=== PATIENT | female | born 1935 | race Caucasian/White ===

== ENCOUNTER 2017-08-22 09:11 | Outpatient (CLI) | payer MEDICARE ==
--- NOTE | 2017-08-22 09:39 | RAD ---
PA AND LATERAL CHEST: HISTORY: Dyspnea. COMPARISON: Comparison is made to prior films of 12/15/15 and 06/09/15. FINDINGS: There are changes of COPD with hyperexpansion. There is abnormal parenchymal opacity involving the l ingula obscuring portions of the left heart order. On the lateral view, there is evidence of cystic change within this portion of the lingula indicating some chronic parenchymal abnormality. These rogelio gular changes appear stable from 12/15/15 indicating chronic change. There is nodularity in the left apex which appears stable. There is no evidence of acute infiltrate. The vascular markings are normal. Heart size normal. Mild aortic calcification. Thoracic vertebr ae maintain height. Osteopenia noted. IMPRESSION: There are changes of chronic obstructive pulmonary disease and chronic lung changes, especially in th e left lung which appears stable as described above. POS: [facility]
== END 2017-08-22 09:12 | disposition home or self-care (01) ==
LOC: RAD 09:11
PROVIDERS: ATTEND Internal Medicine Critical Care Medicine
DX: R06.00 Dyspnea, unspecified (principal); J44.9 Chronic obstructive pulmonary disease, unspecified
CPT/HCPCS: 71020

== ENCOUNTER 2017-09-11 14:10 | Inpatient (IN) | payer MEDICARE, BC ==
[~2017-09-11 14:10] MED LIST: ISOVUE-370 76%-LOCM 1 ML ONE
[2017-09-11 14:43] LABS: #Eosinphils 0.1 thou/uL (0.0-0.7); #Lymphocytes 1.3 thou/uL (1.20-3.40); #Monocytes 0.5 thou/uL (0.11-0.59); #Neutrophils 8.6 thou/uL (1.40-6.50); %Basophils 0.4 % (0.0-1.0); %Eosinophils 1.3 % (0.0-10.0); %Lymphocytes 12.5 % (21.0-51.0); %Monocytes 4.7 % (0.0-10.0); %Neutrophils 81.1 % (42.0-75.0); Hemoglobin 13.5 g/dL (12.0-16.0); Mean Corpuscular HGB CONC 30.8 g/dL (32.0-36.0); Mean Platelet Volume 5.9 fL (7.4-10.4); Platelet Count 459 thou/uL (130-400); RBC Distribution Width 12.8 % (11.5-14.5); Red Blood Cell (RBC) Count 4.81 mill/uL (4.20-5.40); White Blood Cell (WBC) Count 10.6 thou/uL (4.8-10.8)
[2017-09-11 14:57] LABS: ALT (SGPT) 13 U/L (8-55); AST (SGOT) 13 U/L (5-34); Albumin 3.8 g/dL (3.4-4.8); Alkaline Phosphatase 72 U/L (40-150); Anion Gap 18 mmol/L (10-20); BUN (Urea Nitrogen) 14 mg/dL (9.8-20.1); Bilirubin, Total 0.6 mg/dL (0.2-1.2); CK (CPK) 16 U/L (29-168); Calc. Creatinine Clearance 0 mL/min (70-130); Calcium 10.2 mg/dL (7.8-10.44); Carbon Dioxide 27 mmol/L (23-31); Chloride 100 mmol/L (98-107); Estimated GFR-MDRD 66; Globulin 4.1 g/dL (2.4-3.5); Glucose 102 mg/dL (83-110); Potassium 3.8 mmol/L (3.5-5.1); Protein, Total 7.9 g/dL (6.0-8.3); Sodium 141 mmol/L (136-145)
--- NOTE | 2017-09-11 15:01 | RAD ---
PORTABLE CHEST: Date: 09-11-17 Provided Clinical History: Dyspnea. FINDINGS: Comparison 08-22-17. The cardiac and mediastinal silhouette is not definitely changed in appearance. Patchy parenchymal op acity is suspected involving each lower lung. Some of this is likely chronic as it was seen on the pr ior examination, though this appears more conspicuous than on that study. Chronic obstructive changes are re-demonstrated. There is no pleural fluid or pneumothorax apparent. IMPRESSION: Bibasilar patchy parenchymal opacity, which appears new on the right and more conspicuous on the left . Correlation for pneumonia is recommended. Follow up is recommended. POS: OFF
[2017-09-11 15:02] LABS: CKMB 1.3 ng/mL (0-6.6); Troponin I 0.013 ng/mL (< 0.028)
[2017-09-11] MEDS ORDERED: Vancomycin HCl 750 MG in Sodium Chloride 0.9% 250 ML 250 ML IVPB SCH (17:00)
[2017-09-11] MEDS ORDERED: HYDROcodone/Acetaminophen 5/325 mg Tablet PO PRN (17:07)
[2017-09-11] MEDS ORDERED: Acetaminophen 325 MG TAB PO PRN (17:07)
[2017-09-11 18:01] LABS: Troponin I 0.014 ng/mL (< 0.028)
[2017-09-11] MEDS ORDERED: Cefepime 2 GM, Syringe 2.5 ML in Sterile Water 10 ML SLOW IVP SCH (19:15)
--- NOTE | 2017-09-11 20:04 | CT ---
CT PULMONARY ANGIOGRAM WITH IV CONTRAST AND 3D POSTPROCESSIN09/11/17 HISTORY: Tachycardia, palpitations, pneumonia. FINDINGS: There is good contrast opacification of the pulmonary artery vasculature without filling defects to s uggest pulmonary embolism. Vascular calcifications without thoracic aortic aneurysm or dissection. No pleural or pericardial effusions are seen. There is patchy consolidation in the lingula. There are p atchy reticulonodular infiltrates in the lower lung kumar bilaterally. 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 There are a few 5-6 mm nodules in the left upper lobe. There are degenerative harvey ges in the spine. IMPRESSION: 1. No CT evidence of pulmonary embolism. 2. Pneumonia. 3. Indeterminate left upper lobe lung nodules (5-6 mm). A followup exam is recommended in three months. Code T and Code LN POS: CAR[facility]
[2017-09-11 21:01] LABS: Lactic Acid 3.1 mmol/L (0.5-2.2)
[2017-09-11 21:10] LABS: Troponin I 0.018 ng/mL (< 0.028)
[2017-09-11 21:27] LABS: Bilirubin Negative (Negative); Blood, Urine Negative (Negative); Clarity CLEAR (Clear); Glucose, Urine (Dipstick) Negative (Negative); Leukocyte Negative (Negative); Nitrite Negative (Negative); Protein, Urine (Dipstick) Negative (Neg-Trace); Specific Gravity, Urine 1.023 (1.002-1.036); Urobilinogen 0.2 mg/dL (0.2-1.0); pH, Urine 7.5 (5.0-9.0)
[2017-09-11 21:30] LABS: Bacteria/HPF None Seen HPF (None Seen); Hyaline Casts/LPF 0-3 HYALINE CAST LPF (0-3 Hyaline); RBC/HPF 0-3 HPF (0-3); Squamous Epithelial None Seen HPF (0-3); WBC/HPF 0-3 HPF (0-3)
--- NOTE | 2017-09-11 21:56 | CT ---
CT BRAIN WITHOUT CONTRAST 09/11/17 HISTORY: Stroke protocol. FINDINGS: No evidence of infarct, hemorrhage, midline shift, or abnormal extra-axial fluid collections are seen . There are changes of chronic small vessel ischemic disease in the periventricular white matter. Drew tricular size is appropriate and the basilar cisterns patent. The bony calvarium is intact. There is mucosal disease on the left sphenoid sinus. IMPRESSION: No CT evidence of acute intracranial process. POS: [facility]
[2017-09-11] MEDS ORDERED: Famotidine 20 MG TAB ONE (23:25)
--- NOTE | 2017-09-12 01:38 | HP ---
PRIMARY CARE PHYSICIAN: Bi Connor M.D. CAMPUS EXECUTIVE DIRECTOR: Rhett Hill M.D. HISTORY OF PRESENT ILLNESS: An 81-year-old female with a known history of asthma and a recent histor y of pneumonia for which she was treated on an outpatient basis. She presents today with a chief com plaint of weakness and palpitations. The patient states that approximately 3 weeks ago she was treated by her outpatient pattern puncher and primary care team with Levaquin, azithromycin, and doxycycline, methylprednisolone on an outpatient basis for pneumonia. She completed the regimen approximately 3 weeks ago and since then has been fee ling very weak with some accompanying dizziness and dyspnea with exertion. The patient's wheezing, w hich prompted her initial pneumonia treatment has since resolved and not recurred. The patient is he re today with her granddaughter at bedside. The patient has been having palpitations over the last 5 days and increasing dyspnea with exertion. She was seen earlier in her PCP's office and was instruc marti to come to the emergency department for further evaluation and treatment for her persistent sympt omatic palpitations. REVIEW OF SYSTEMS: As per HPI. General: The patient is awake, alert, no weight changes that the pa tiejalyn is aware. The patient reports a decreased appetite, but states that this has been longstanding . HEENT: No vision changes. The patient does endorse a degree of dizziness and perhaps some "blurr ed vision," and headaches earlier today x1, which is currently resolved. The patient states that the se started when she was trying to move from her bed to a recliner earlier today. Respiratory: Dyspn ea with exertion as above. No wheezing. Recent history as above. Cardiovascular: Denies any chest pain, chest pressure, left-sided arm weakness, heaviness or tingling, no lower extremity edema. Dys pnea on exertion as described above. Gastrointestinal: No nausea, decreased appetite is endorsed th at has been longstanding, no abdominal pain, no diarrhea, no constipation. Genitourinary: The patie nt endorses decreased urine output without dysuria, no hematuria. Musculoskeletal: Please see above . The remainder of review of systems otherwise negative. PAST MEDICAL HISTORY: Significant for anxiety, depression, asthma. Denies having obtained any pneum ococcal or flu vaccines this year. FAMILY HISTORY: No significant family history for cardiovascular, valvular disease, known respirator y issues. SOCIAL HISTORY: The patient is accompanied by her 2 grandchildren including a granddaughter who is h er POA. The patient endorses that she has a DNR at this point in time. This was discussed with the patient and her granddaughter at bedside. The patient denies any alcohol, tobacco, illicit drug use. HOME MEDICATIONS: Please see EMR for full details. The patient has been longstanding on Breo, alpra zolam. The patient was newly initiated on Remeron and mirtazapine. PHYSICAL EXAMINATION: GENERAL: The patient is awake, alert, appropriate, seated in hospital bed in no acute distress. HEENT: Equal ocular motions are intact, slightly dry mucous membranes, reasonable dentition, normoce phalic, atraumatic, no conversational dyspnea. RESPIRATORY: Clear to auscultation bilaterally, reasonable air movement, no wheezes, rales or rhonch i. CARDIOVASCULAR: S1, S2. Soft heart tones. EXTREMITIES: Pulses 2+ bilateral upper extremity, no pitting pedal edema. ABDOMEN: Positive bowel sounds, soft, nontender to palpation. MUSCULOSKELETAL: Moving all 4 extremities, able to self-reposition in the stretcher without assistan ce or difficulty. LABORATORY DATA AND IMAGIN. EKG: Sinus tachycardia, heart rate of 135. No ST-T wave changes to suggest ACS. 2. Chest x-ray bibasilar patchy parenchymal opacification more so on the right than previously. 3. CBC: WBC 10.6, hemoglobin 13.5, hematocrit 43.7, platelets 459, neutrophils 81%. 4. BMP: Sodium 141, potassium 3.8, chloride 100, BUN 14, creatinine 0.83, glucose 102, calcium 10.2 , magnesium 2.1, total bilirubin 0.6, AST 13, ALT 13, alkaline phosphatase 72. CK 16. TSH 3.39. 5. Lactic acid 3.6. ASSESSMENT AND PLAN: An 81-year-old female presenting with a chief complaint of palpitations. 1. Tachycardia. Concern for an underlying etiology that appears to not be thyroid driven at this po int in time. The patient could have a component of volume depletion, dehydration given her history o f poor p.o. intake. She has been given 1.5 liters normal saline in the emergency department. We giselle l continue on normal saline at 100 mL an hour. Given the patient's decreased mobility recently from her pneumonia that was treated on an outpatient basis, concern is also for possibility of a pulmonary embolus. CTA of the chest has been ordered to rule out possible pulmonary embolism. Also given the opacification on the chest x-ray, which could be more prominent CT, will also further delineate the pulmonary parenchymal structure. There is concern for progressive pneumonia despite adequate outpati ent treatment, the patient will have a CT as discussed above. The patient has been empirically place d on vancomycin and gentamicin. Particularly in light of an elevated lactate, further evaluation for possible infectious etiology has been started including pending urinalysis, urine culture, sputum cu lture, blood cultures. 2. Known history of asthma. Consultation, routine has been requested to the patient's outpatient pu lmonologist. It is unclear if the patient at this point in time needs any further modifications to h er respiratory regimen. She appears to be saturating adequately on room air at this point in time, w e will closely monitor as well. Continue the patient on her home regimen. 3. Anxiety and depression. Continue the patient on her home regimen. I have discussed the patient's code status with the patient and granddaughter at bedside. She is cur rently DNR. DIET: Regular. ACTIVITY: Out of bed as tolerated. Deep venous thrombosis prophylaxis with enoxaparin. Thank you for asking me to care for your patient. Please let me know if there are any questions or c oncerns.
[2017-09-12 05:34] LABS: #Eosinphils 0.2 thou/uL (0.0-0.7); #Lymphocytes 1.2 thou/uL (1.20-3.40); #Monocytes 0.4 thou/uL (0.11-0.59); #Neutrophils 4.8 thou/uL (1.40-6.50); %Basophils 0.4 % (0.0-1.0); %Eosinophils 2.8 % (0.0-10.0); %Lymphocytes 18.2 % (21.0-51.0); %Monocytes 6.5 % (0.0-10.0); %Neutrophils 72.1 % (42.0-75.0); Hemoglobin 10.7 g/dL (12.0-16.0); Mean Corpuscular HGB CONC 32.8 g/dL (32.0-36.0); Mean Corpuscular Hemoglobin 29.3 pg (27.0-31.0); Mean Corpuscular Volume 89.3 fl (81.0-99.0); Platelet Count 318 thou/uL (130-400); RBC Distribution Width 12.7 % (11.5-14.5); Red Blood Cell (RBC) Count 3.67 mill/uL (4.20-5.40); White Blood Cell (WBC) Count 6.7 thou/uL (4.8-10.8)
[2017-09-12 05:55] LABS: ALT (SGPT) 10 U/L (8-55); AST (SGOT) 11 U/L (5-34); Albumin 2.7 g/dL (3.4-4.8); Alkaline Phosphatase 51 U/L (40-150); Anion Gap 9 mmol/L (10-20); BUN (Urea Nitrogen) 8 mg/dL (9.8-20.1); Bilirubin, Total 0.6 mg/dL (0.2-1.2); Calc. Creatinine Clearance 0 mL/min (70-130); Calcium 8.7 mg/dL (7.8-10.44); Carbon Dioxide 27 mmol/L (23-31); Chloride 107 mmol/L (98-107); Estimated GFR-MDRD 85; Globulin 2.8 g/dL (2.4-3.5); Glucose 86 mg/dL (83-110); Magnesium 1.8 mg/dL (1.6-2.6); Potassium 3.6 mmol/L (3.5-5.1); Protein, Total 5.5 g/dL (6.0-8.3); Sodium 139 mmol/L (136-145)
[2017-09-12] MEDS: Sodium Chloride 0.9% 1,000 ML IV SCH ×4 (09:30→23:35)
[2017-09-12] MEDS ORDERED: Famotidine 20 MG TAB ONE (09:42)
[2017-09-12] MEDS ORDERED: Enoxaparin Sodium 40 MG/0.4 ML SYRINGE ONE (09:42)
--- NOTE | 2017-09-12 10:36 | PDOC.PN ---
- Subjective Encounter Start Date: 09/12/17 Encounter Start Time: 10:35 Subjective: feels well at present, no cough, sob - Objective Resuscitation Status: Resuscitation Status DNR:Do Not Resuscitate MAR Reviewed: Yes Result Diagrams: 09/12/17 04:56 09/12/17 04:56 Radiology Reviewed by me: Yes (cxr, copd, residual infiltrates) Phys Exam - Physical Examination Constitutional: NAD Neck: no JVD Respiratory: clear to auscultation bilateral decreased BS Cardiovascular: RRR, no significant murmur Gastrointestinal: soft, positive bowel sounds Musculoskeletal: no edema Dx/Plan (1) PNA (pneumonia) Code(s): J18.9 - PNEUMONIA, UNSPECIFIED ORGANISM Status: Acute Comment: post outpt tx (2) COPD (chronic obstructive pulmonary disease) Status: Acute (3) Tachycardia Code(s): R00.0 - TACHYCARDIA, UNSPECIFIED Status: Acute (4) Lactic acid acidosis Code(s): E87.2 - ACIDOSIS Status: Acute - Plan iv fluids -: hold antibx -: call Dr Hill -: rpt lactic acid * .
[2017-09-12] MEDS: Famotidine 20 MG TAB PO SCH ×3 (12:56→20:22)
[2017-09-12] MEDS: Enoxaparin Sodium 40 MG/0.4 ML SYRINGE SC SCH (12:57)
--- NOTE | 2017-09-12 14:43 | CON ---
DATE OF CONSULTATION: 09/12/2017 REASON FOR CONSULTATION: Possible pneumonia. HISTORY OF PRESENT ILLNESS: Ms. Juarez is an 81-year-old female who was brought into the hospital for episodic tachycardia, which has been present for the last 2-3 weeks. She apparently saw Dr. Hill a few weeks ago and was prescribed some antibiotics for nonresolving pneumonia. The patient says she is better from a respiratory standpoint. He is not having any cough or congestion. We were asked to see her in continuing pulmonary care. Obtained history from talking to the patient and reviewing re cords and the chart. PAST MEDICAL HISTORY: 1. Anxiety. 2. Depression. 3. Asthma. 4. Recent pneumonia. PAST SURGICAL HISTORY: None. SOCIAL HISTORY: Nonsmoker, very rarely drinks alcohol or use illicit drugs. FAMILY MEDICAL HISTORY: Unremarkable for any chronic pulmonary disease. MEDICATIONS: Prozac, mirtazapine, iron, and Breo Ellipta. ALLERGIES: None. REVIEW OF SYSTEMS: Twelve point review of systems otherwise negative. PHYSICAL EXAMINATION: VITAL SIGNS: Pulse 135 and sinus, temperature 98.3, respirations 18, O2 sat 95%, blood pressure 137/ 64. GENERAL: She is awake and alert and in no acute distress. HEENT: Unremarkable. NECK: Without adenopathy or JVD. LUNGS: Clear without wheezing or rhonchi. CARDIOVASCULAR: S1, S2 tachycardic without murmur. ABDOMEN: Soft and nontender. EXTREMITIES: No clubbing, cyanosis, or edema. TSH level was normal. LABORATORY DATA: Sodium 139, potassium 3.6, chloride 107, CO2 of 27, BUN 8, creatinine 2.6, glucose 85. White blood cell count 6.7, hematocrit 32.7, platelet count 318. CT was reviewed and demonstrates 5 or 6 mm nodule in the left upper lobe. There are some nondescript changes in the left lingular area. There are some fibrotic changes present in the bases, which look more like bronchiectasis than anything else. ASSESSMENT: 1. Tachycardia of unknown origin. 2. Recent pneumonitis which appears better on serial x-rays. 3. History of asthma. 4. Likely some degree of chronic bronchiectasis. RECOMMENDATIONS: 1. From a pulmonary standpoint, I would hold her off antibiotics. I would ask the Cardiology get in volve for the tachycardia. 2. Nebulization treatments on an as needed basis.
[2017-09-12 15:59] LABS: Lactic Acid 1.8 mmol/L (0.5-2.2)
--- NOTE | 2017-09-12 17:49 | PDOC.EVN ---
Event Note - Event Note Event Note: pulmonology requests cardiology consult for tachycardia
[2017-09-12] MEDS: Ondansetron HCl/PF 4 MG/2 ML Vial IVP PRN (19:21)
[2017-09-12] MEDS ORDERED: ALPRAZolam 0.5 MG TAB PO SCH (19:45)
[2017-09-12] MEDS: Mometasone/Formoterol 120 PUFF INHALER INH SCH (20:30)
[2017-09-13 04:56] LABS: #Eosinphils 0.2 thou/uL (0.0-0.7); #Lymphocytes 1.2 thou/uL (1.20-3.40); #Monocytes 0.3 thou/uL (0.11-0.59); #Neutrophils 3.2 thou/uL (1.40-6.50); %Basophils 0.5 % (0.0-1.0); %Eosinophils 4.6 % (0.0-10.0); %Lymphocytes 23.6 % (21.0-51.0); %Monocytes 6.9 % (0.0-10.0); %Neutrophils 64.5 % (42.0-75.0); Hemoglobin 10.3 g/dL (12.0-16.0); Mean Corpuscular HGB CONC 31.6 g/dL (32.0-36.0); Mean Corpuscular Hemoglobin 28.5 pg (27.0-31.0); Mean Corpuscular Volume 90.2 fl (81.0-99.0); Platelet Count 299 thou/uL (130-400); RBC Distribution Width 12.7 % (11.5-14.5); Red Blood Cell (RBC) Count 3.61 mill/uL (4.20-5.40)
[2017-09-13 05:13] LABS: ALT (SGPT) 9 U/L (8-55); AST (SGOT) 10 U/L (5-34); Albumin 2.4 g/dL (3.4-4.8); Alkaline Phosphatase 49 U/L (40-150); Anion Gap 8 mmol/L (10-20); BUN (Urea Nitrogen) 5 mg/dL (9.8-20.1); Bilirubin, Total 0.5 mg/dL (0.2-1.2); Calc. Creatinine Clearance 39 mL/min (70-130); Calcium 8.4 mg/dL (7.8-10.44); Carbon Dioxide 27 mmol/L (23-31); Chloride 111 mmol/L (98-107); Estimated GFR-MDRD 77; Globulin 2.6 g/dL (2.4-3.5); Glucose 91 mg/dL (83-110); Magnesium 1.8 mg/dL (1.6-2.6); Potassium 4.1 mmol/L (3.5-5.1); Sodium 142 mmol/L (136-145)
[2017-09-13] MEDS: Mometasone/Formoterol 120 PUFF INHALER INH SCH ×2 (06:18→19:17)
[2017-09-13] MEDS ORDERED: ALPRAZolam 0.5 MG TAB PO PRN (07:17)
--- NOTE | 2017-09-13 07:25 | PDOC.PN ---
- Subjective Encounter Start Date: 09/13/17 Encounter Start Time: 07:24 Subjective: first good nites sleep - Objective Resuscitation Status: Resuscitation Status DNR:Do Not Resuscitate MAR Reviewed: Yes Vital Signs & Weight: Vital Signs (12 hours) Temp Pulse Resp BP BP BP BP 09/13/17 04:00 97.3 F L 126 H 18 106/62 09/13/17 00:00 97.8 F 09/12/17 20:30 128 H 18 09/12/17 20:00 100.0 F H 128 H 20 09/12/17 19:45 100.0 F H 127 H 20 129/63 112/58 L 130/67 Pulse Ox 09/13/17 04:00 94 L 09/13/17 00:00 09/12/17 20:30 96 09/12/17 20:00 97 09/12/17 19:45 97 Weight Weight 91 lb 4.8 oz I&O: 09/12/17 09/13/17 09/14/17 06:59 06:59 06:59 Intake Total 2745 Output Total 250 Balance 2495 Result Diagrams: 09/13/17 04:11 09/13/17 04:11 Phys Exam - Physical Examination Neck: no JVD Respiratory: clear to auscultation bilateral Cardiovascular: RRR, no significant murmur Gastrointestinal: soft, positive bowel sounds Musculoskeletal: no edema Dx/Plan (1) PNA (pneumonia) Code(s): J18.9 - PNEUMONIA, UNSPECIFIED ORGANISM Status: Acute Qualifiers: Laterality: unspecified laterality Lung location: unspecified part of lung Comment: post outpt tx (2) COPD (chronic obstructive pulmonary disease) Status: Chronic Qualifiers: Emphysema type: unspecified (3) Tachycardia Code(s): R00.0 - TACHYCARDIA, UNSPECIFIED Status: Acute (4) Lactic acid acidosis Code(s): E87.2 - ACIDOSIS Status: Resolved - Plan cont nebs, home meds -: echo pending, cardiology to see * .
[2017-09-13] MEDS: Mirtazapine 30 MG TAB PO SCH (09:06)
[2017-09-13] MEDS: Enoxaparin Sodium 40 MG/0.4 ML SYRINGE SC SCH (09:06)
[2017-09-13] MEDS: Famotidine 20 MG TAB PO SCH ×2 (09:06→21:08)
[2017-09-13] MEDS: Sodium Chloride 0.9% 1,000 ML IV SCH (09:07)
[2017-09-13] MEDS: FLUoxetine HCl 20 MG CAP PO SCH (09:07)
--- NOTE | 2017-09-13 12:20 | PQF ---
CLINICAL DOCUMENTATION IMPROVEMENT CLARIFICATION FORM: ICD-10 Updated PLEASE DO AN ADDENDUM TO THE PROGRESS NOTE WITH ANY DOCUMENTATION UPDATES OR ADDITIONS AND CARRY THROUGH TO DC SUMMARY. THANK YOU. Date: 09/13/17 ATTN : DR. CHU Please exercise your independent, professional judgment in responding to the clarification form. Clinical indicators are provided on the bottom of this form for your review Please check appropriate box(s): [ ] Protein Calorie Malnutrition: [ ] Mild [ ] Moderate [ ] Severe [ ] Other Malnutrition (please specify) __ [ x ] Underweight without malnutrition [ ] Cachexia [ ] Other diagnosis [ ] Unable to determine In addition, please specify: Present on Admission (POA): [ x] Yes [ ] No [ ] Unable to determine CLINICAL INDICATORS - SIGNS / SYMPTOMS / LABS "NUTRITION PROBABLY INADEQUATE" PER NURSING ASSESSMENT 09/13 ALBUMIN 2.4 BMI 14.3 RISKS: APPETITE CHANGES PER NURSING ASSESSMENT 09/13 TREATMENT: DIETARY CONSULT DIETARY SUPPLEMENTS (This form is maintained as a part of the permanent medical record) 2014 [employer] All Rights Reserved SADI [email or web address] Office: [phone] [facility]
[2017-09-13 13:12] VITALS: BMI 14.3
[2017-09-13] MEDS: Dronedarone HCl 400 MG TAB PO SCH (16:00)
--- NOTE | 2017-09-13 16:52 | PRG ---
DATE OF SERVICE: 09/13/2017 SUBJECTIVE: Sadie Juarez has no complaints. She still feels her heart beating fast. She has been 126, but 133-135 most of the morning. PHYSICAL EXAMINATION: VITAL SIGNS: She is afebrile, oximetry is 96%, and blood pressure 127/64. LUNGS: Clear. HEART: Regular rhythm. ABDOMEN: Soft. LABORATORY DATA: White count 5, hemoglobin 10.3, platelets 299. Sodium 142, potassium 4.1, chloride 111, bicarbonate 27, BUN 5, creatinine 0.73. Cardiology has been consulted. IMPRESSION: 1. Recent pneumonia, adequately treated. She is not having any symptoms of pneumonia on admission. 2. Sinus tachycardia versus atrial flutter. Cardiology has been consulted and we will review rhythm strips and will talk to Dr. Monsalve about this. 3. Depression after loss of her . She admits that she is not eating, but she is now drinking Ensure milkshakes. 4. History of asthma. 5. Question of bronchiectasis, it is mild in her lingula. PLAN: Continue current care. Await Cardiology input.
[2017-09-13] MEDS ORDERED: Diltiazem HCl 125 MG, Admixture Fee 1 EACH in Sodium Chloride 0.9% 100 ML IVPB SCH (17:15)
--- NOTE | 2017-09-13 18:54 | CON ---
DATE OF CONSULTATION: 09/13/2017 CARDIOLOGY CONSULTATION REASON FOR CONSULTATION: Tachycardia. PRIMARY CLIENT EXPERIENCE ADMINISTRATOR: Dr. Stephanie Joseph. HISTORY OF PRESENT ILLNESS: Ms. Juarez is a very pleasant 81-year-old white female who comes to the ospital for tachycardia and feeling weak and tired. She is a patient of Dr. Hill and he treated her recently for a walking pneumonia. She was placed on steroids and antibiotics. She presented back t o her PCP. Her heart rate had been in the 130s to 140s at that time, so PCP decided to admit her as this tachycardia may mean her infection was getting worse. She was placed in the hospital and she en docardial being consulted for evaluation of her tachycardia. Currently, Ms. Juarez tells me that sinc e her pneumonia was treated, she has not felt much difference in the way in how weak she feels. She does feel that her breathing is slightly better. Denies any chest pain, tightness, or pressure. PAST MEDICAL HISTORY: 1. Anxiety depression. 2. Bronchial asthma. FAMILY HISTORY: Noncontributory. PAST SURGICAL HISTORY: None. MEDICATIONS: 1. Breo Ellipta 1 inhalation daily. 2. Xanax p.r.n. 3. Remeron 30 mg daily. 4. Ferrous sulfate. 5. Fluoxetine 200 mg a day. ALLERGIES: No known drug allergies. REVIEW OF SYSTEMS: A 12-point review of systems was done and is all negative unless stated in the hi story of present illness. PHYSICAL EXAMINATION: VITAL SIGNS: Temperature 98.0, pulse 135, respiratory rate 20, satting 95% on 2 liters, blood pressu re 127/64. GENERAL: Awake, alert, oriented x3, in no distress. HEENT: Normocephalic, atraumatic. NECK: Supple. LUNGS: Mostly clear. CARDIOVASCULAR: S1, S2. No S3 or S4, tachycardia in the 130s, irregular at times. ABDOMEN: Soft, positive bowel sounds. EXTREMITIES: No edema. SKIN: Warm and dry. LABORATORY WORK: Reviewed. White count 10, hemoglobin of 13, hematocrit 43, and platelet count of 4 59. Coags: D-dimer was little high. Chemistries were normal with sodium and potassium, lactic acid of 3.1 on admission, down to 1.8, albumin of 2.4, which would go with this history of not eating dottie t well. UA was negative. Chest x-ray on admission showed bibasilar patchy parenchymal opacity on the right consistent with pne umonia. CT of the chest showed no evidence of pulmonary embolism. There is pneumonia on the lower lung field s bilaterally and indeterminate left upper lobe lung nodule. EKG was reviewed. Initial EKG looks like atrial flutter with 2:1 AV block. Telemetry monitoring is hard to tell looks like an SVT, heart rate in the 130s as well. Most likely the same 2:1 flutter. ASSESSMENT AND PLAN: 2:1 atrial flutter/atrial fibrillation: She has a few episodes where her heart rate is more irregular and more consistent with atrial fibrillation; however, most of the time she h as been in atrial flutter with 2:1 AV block, heart rates in the 130s. At this time, I spoke with her about the possible ways of treating this and she would like to start anticoagulation for stroke prop hylaxis and she also agrees to try to do a PARMINDER cardioversion tomorrow to get her back into normal rhy thm. We will plan on starting an antiarrhythmic this evening to see if this breaks her rhythm and we will start Eliquis at 2.5 mg twice a day for at least the next 4-6 weeks. We will plan on leaving h er n.p.o., I am doing this tomorrow. Thank you for letting us to participate in the care of your patient. Dr. Joseph, his primary Cardiol ogy will follow in the morning.
[2017-09-13] MEDS: Apixaban 5 MG TAB PO SCH (21:08)
[2017-09-14 05:43] LABS: #Eosinphils 0.2 thou/uL (0.0-0.7); #Lymphocytes 1.1 thou/uL (1.20-3.40); #Monocytes 0.4 thou/uL (0.11-0.59); #Neutrophils 2.9 thou/uL (1.40-6.50); %Basophils 0.9 % (0.0-1.0); %Eosinophils 4.1 % (0.0-10.0); %Lymphocytes 22.9 % (21.0-51.0); %Monocytes 8.2 % (0.0-10.0); Hemoglobin 10.3 g/dL (12.0-16.0); Mean Corpuscular HGB CONC 33.1 g/dL (32.0-36.0); Mean Corpuscular Hemoglobin 29.8 pg (27.0-31.0); Mean Corpuscular Volume 89.9 fl (81.0-99.0); Mean Platelet Volume 6.1 fL (7.4-10.4); Platelet Count 272 thou/uL (130-400); RBC Distribution Width 12.8 % (11.5-14.5); Red Blood Cell (RBC) Count 3.44 mill/uL (4.20-5.40); White Blood Cell (WBC) Count 4.6 thou/uL (4.8-10.8)
[2017-09-14 05:57] LABS: ALT (SGPT) 7 U/L (8-55); AST (SGOT) 13 U/L (5-34); Albumin 2.5 g/dL (3.4-4.8); Alkaline Phosphatase 46 U/L (40-150); Anion Gap 9 mmol/L (10-20); BUN (Urea Nitrogen) 4 mg/dL (9.8-20.1); Bilirubin, Total 0.3 mg/dL (0.2-1.2); Calc. Creatinine Clearance 42 mL/min (70-130); Calcium 8.3 mg/dL (7.8-10.44); Carbon Dioxide 26 mmol/L (23-31); Chloride 110 mmol/L (98-107); Estimated GFR-MDRD 81; Globulin 2.5 g/dL (2.4-3.5); Glucose 83 mg/dL (83-110); Magnesium 1.6 mg/dL (1.6-2.6); Potassium 4.1 mmol/L (3.5-5.1); Sodium 141 mmol/L (136-145)
[2017-09-14] MEDS: Mometasone/Formoterol 120 PUFF INHALER INH SCH ×2 (07:13→19:03)
--- NOTE | 2017-09-14 08:25 | PDOC.PN ---
- Subjective Encounter Start Date: 09/14/17 Encounter Start Time: 08:23 Subjective: no palpatations, etc - Objective Resuscitation Status: Resuscitation Status DNR:Do Not Resuscitate MAR Reviewed: Yes Vital Signs & Weight: Vital Signs (12 hours) Temp Pulse Resp BP Pulse Ox 09/14/17 07:51 98.1 F 122 H 16 95 09/14/17 07:15 98.1 F 122 H 18 104/59 L 96 09/14/17 07:13 122 H 16 97 09/14/17 04:00 97.9 F 118 H 20 114/69 94 L Weight Admit Weight 89 lb 9 oz Weight 93 lb 9.6 oz I&O: 09/13/17 09/14/17 09/15/17 06:59 06:59 06:59 Intake Total 2745 1384.1 Output Total 250 750 Balance 2495 634.1 Result Diagrams: 09/14/17 05:17 09/14/17 05:17 Phys Exam - Physical Examination Constitutional: NAD Neck: no JVD Respiratory: clear to auscultation bilateral Cardiovascular: RRR, no significant murmur tachy Gastrointestinal: soft, non-tender, positive bowel sounds Musculoskeletal: no edema Dx/Plan (1) PNA (pneumonia) Code(s): J18.9 - PNEUMONIA, UNSPECIFIED ORGANISM Status: Acute Qualifiers: Laterality: unspecified laterality Lung location: unspecified part of lung Comment: post outpt tx (2) COPD (chronic obstructive pulmonary disease) Status: Chronic Qualifiers: Emphysema type: unspecified (3) Tachycardia Code(s): R00.0 - TACHYCARDIA, UNSPECIFIED Status: Acute (4) Lactic acid acidosis Code(s): E87.2 - ACIDOSIS Status: Resolved (5) Atrial flutter Code(s): I48.92 - UNSPECIFIED ATRIAL FLUTTER Status: Acute - Plan planned PARMINDER, cardioversion today -: on cheryl redmond * .
[2017-09-14] MEDS ORDERED: Diprivan 20 ML ONE ×2 (08:52)
[2017-09-14] MEDS ORDERED: ePHEDrine/0.9% NaCl/PF SYRINGE 50 mg/10 ml ONE (08:52)
[2017-09-14] MEDS ORDERED: PHENYLEPHRINE-NS 100 MCG/ML 10 ML SYRINGE ONE ×2 (08:52→13:38)
--- NOTE | 2017-09-14 09:26 | PRG ---
DATE OF SERVICE: 09/14/2017 Ms. Juarez is still in atrial flutter by the rhythm monitor this morning. She is down in PACU awaitin g attempted cardioversion today. Rhythm has been intermittently atrial fibrillation and atrial flutt er. Her vital signs have otherwise been stable. IMPRESSION: Asthma, clinically stable, awaiting attempted cardioversion for atrial fibrillation and atrial flutter.
--- NOTE | 2017-09-14 09:41 | OP ---
DATE OF PROCEDURE: 09/14/2017 PREPROCEDURE DIAGNOSIS: Atrial fibrillation/atrial flutter 2:1 atrioventricular block. PROCEDURE PERFORMED: Cardioversion synchronized. PROCEDURE SUMMARY: Mrs. Juarez is an 81-year-old white female who comes to the hospital for tachycard ia, not feeling well. She was diagnosed with 2:1 AV flutter and was brought down for cardioversion. PARMINDER was performed prior to rule out left atrial appendage clot. Please see PARMINDER results for further details. DESCRIPTION OF PROCEDURE: After adequate sedation was achieved by the Anesthesiology department, one single synchronized 100 joule shock was delivered successfully converting her from 2:1 flutter into sinus rhythm with several PACs. She tolerated the procedure well. RECOMMENDATIONS: 1. Continue Multaq and Eliquis for stroke prophylaxis. 2. Will be discharged home later today from the cardiac perspective. 3. She will follow up with Dr. Joseph, her primary wet trimmer in the next few weeks.
[2017-09-14] MEDS: Ondansetron HCl/PF 4 MG/2 ML Vial IVP PRN (10:58)
[2017-09-14] MEDS: Apixaban 5 MG TAB PO SCH ×2 (11:00→20:37)
[2017-09-14] MEDS: Famotidine 20 MG TAB PO SCH ×2 (11:00→20:37)
[2017-09-14] MEDS: FLUoxetine HCl 20 MG CAP PO SCH (11:00)
[2017-09-14] MEDS: Dronedarone HCl 400 MG TAB PO SCH ×2 (11:15→17:06)
[2017-09-14] MEDS: Mirtazapine 30 MG TAB PO SCH (11:15)
[2017-09-14] MEDS ORDERED: Propofol 200 MG/20 ML VIAL ONE (13:38)
--- NOTE | 2017-09-14 14:22 | ECHO ---
TRANSESOPHAGEAL ECHOCARDIOGRAM: DATE OF SERVICE: 09/14/17 PREPROCEDURE DIAGNOSIS: Atrial flutter. POSTPROCEDURE DIAGNOSIS: Atrial flutter. INDICATION: Transesophageal echo performed for evaluation of left atrial appendage thrombus in the setting of nee d for cardioversion. PROCEDURE DETAILS: The anesthesia department provided anesthesia for the patient. Please see their notes for details. After adequate sedation was achieved, the transesophageal probe was inserted into the patient's mouth and into the esophagus, and multiplanar views were done. FINDINGS: Left ventricle appears to be normal size. Systolic function appears to be low normal, about 50%. No r egional wall motion abnormalities. Left atrium is mildly dilated. Right atrium is mildly dilated. Right ventricle is normal size with normal systolic function. Aortic valve is normal structure, three cusps. No stenosis or regurgitation. Mitral valve is structurally normal. There is mild mitral annular calcification. There is moderate mi tral regurgitation with Coanda effect. Tricuspid valve is structurally normal. There is mild TR. Pulmonary valve is structurally normal, well seen on this study. There is mild pulmonary insufficienc y. No stenosis. Aortic root is normal size. Left atrial appendage is widely patent with no evidence of mass or thrombus. Interatrial septum appears to be intact by color Doppler. CONCLUSIONS: 1. Normal systolic function, EF of 50%. 2. Mild biatrial enlargement. 3. Moderate mitral regurgitation. 4. Mild TR and PI. 5. Left atrial appendage is without mass or thrombus.
--- NOTE | 2017-09-14 15:38 | PRG ---
DATE OF SERVICE: 09/14/2017 Ms. Juarez underwent cardioversion today. Reviewing the records and I think she has had atrial flutter with heart rate of 135. The patient can be discharged home at any time, she prefers to wait until tomorrow morning to see us in the office i n a few weeks. On Multaq 400 mg twice a day and apixaban 2.5 mg twice a day. We will stop beta bloc ker at this time. If she has recurrent atrial flutter, I would recommend an atrial flutter ablation by Electrophysiology and reviewing the records, I did not actually see any atrial fibrillation just f tututter.
[2017-09-14] MEDS ORDERED: Metoprolol Tartrate 25 MG TAB PO SCH (21:00)
[2017-09-15 05:48] LABS: #Eosinphils 0.2 thou/uL (0.0-0.7); #Lymphocytes 1.3 thou/uL (1.20-3.40); #Monocytes 0.5 thou/uL (0.11-0.59); #Neutrophils 3.9 thou/uL (1.40-6.50); %Basophils 0.6 % (0.0-1.0); %Eosinophils 3.5 % (0.0-10.0); %Lymphocytes 21.6 % (21.0-51.0); %Monocytes 8.9 % (0.0-10.0); %Neutrophils 65.4 % (42.0-75.0); Mean Corpuscular HGB CONC 31.4 g/dL (32.0-36.0); Mean Corpuscular Hemoglobin 28.4 pg (27.0-31.0); Mean Corpuscular Volume 90.4 fl (81.0-99.0); Mean Platelet Volume 6.1 fL (7.4-10.4); Platelet Count 243 thou/uL (130-400); RBC Distribution Width 12.8 % (11.5-14.5); Red Blood Cell (RBC) Count 3.18 mill/uL (4.20-5.40)
[2017-09-15 06:07] LABS: ALT (SGPT) 10 U/L (8-55); AST (SGOT) 14 U/L (5-34); Albumin 2.4 g/dL (3.4-4.8); Alkaline Phosphatase 52 U/L (40-150); Anion Gap 7 mmol/L (10-20); BUN (Urea Nitrogen) 7 mg/dL (9.8-20.1); Bilirubin, Total 0.4 mg/dL (0.2-1.2); Calc. Creatinine Clearance 39 mL/min (70-130); Calcium 8.6 mg/dL (7.8-10.44); Carbon Dioxide 29 mmol/L (23-31); Chloride 109 mmol/L (98-107); Estimated GFR-MDRD 72; Globulin 2.5 g/dL (2.4-3.5); Glucose 94 mg/dL (83-110); Magnesium 1.9 mg/dL (1.6-2.6); Protein, Total 4.9 g/dL (6.0-8.3); Sodium 141 mmol/L (136-145)
[2017-09-15] MEDS: Mometasone/Formoterol 120 PUFF INHALER INH SCH (06:56)
[2017-09-15 08:08] VITALS: TEMP 98.5
--- NOTE | 2017-09-15 10:22 | PDOC.PN ---
- Subjective Encounter Start Date: 09/15/17 Encounter Start Time: 10:20 Patient seen at bedside. Asymptomatic SVT (15 bts last night). No Chest pain, palpitations, or SOB. Ambulated to restroom without difficulty. - Objective Resuscitation Status: Resuscitation Status DNR:Do Not Resuscitate MAR Reviewed: Yes Vital Signs & Weight: Vital Signs (12 hours) Temp Pulse Resp BP BP BP BP 09/15/17 08:07 98.5 F 62 17 97/50 L 09/15/17 07:58 98.1 F 78 16 09/15/17 06:56 78 16 09/15/17 04:00 98.0 F 67 18 99/48 L 09/15/17 00:00 98.3 F 62 20 98/50 L 110/53 L 98/51 L Pulse Ox 09/15/17 08:07 92 L 09/15/17 07:58 92 L 09/15/17 06:56 95 09/15/17 04:00 94 L 09/15/17 00:00 95 Weight Admit Weight 89 lb 9 oz Weight 93 lb 9.6 oz I&O: 09/14/17 09/15/17 09/16/17 06:59 06:59 06:59 Intake Total 1384.1 1000 240 Output Total 750 330 Balance 634.1 670 240 Result Diagrams: 09/15/17 05:27 09/15/17 05:27 Phys Exam - Physical Examination Constitutional: NAD HEENT: PERRLA Neck: no JVD Respiratory: clear to auscultation bilateral Cardiovascular: RRR Gastrointestinal: soft Musculoskeletal: pulses present Neurological: moves all 4 limbs Psychiatric: A&O x 3 Dx/Plan (1) Atrial flutter Code(s): I48.92 - UNSPECIFIED ATRIAL FLUTTER Status: Resolved (2) COPD (chronic obstructive pulmonary disease) Status: Chronic Qualifiers: Emphysema type: unspecified - Plan cont current plan of care, plan discussed w/ family, out of bed/ambulate * Appreciate Cardiology input- Can be discharged home with Multaq/Elijoseis. * BB discontinued * D/C Home
[2017-09-15 10:35] VITALS: BP 128/60
[2017-09-15] MEDS: Dronedarone HCl 400 MG TAB PO SCH (10:59)
[2017-09-15] MEDS: Famotidine 20 MG TAB PO SCH (10:59)
[2017-09-15] MEDS: Mirtazapine 30 MG TAB PO SCH (10:59)
[2017-09-15] MEDS: FLUoxetine HCl 20 MG CAP PO SCH (10:59)
[2017-09-15] MEDS: Apixaban 5 MG TAB PO SCH (10:59)
--- NOTE | 2017-09-15 16:57 | DIS ---
DATE OF ADMISSION: 09/11/2017 DATE OF DISCHARGE: 09/15/2017 DISCHARGE DISPOSITION: Home. DISCHARGE FOLLOWUP: 1. With Dr. Joseph in [address] Hill as needed. DISCHARGE DIAGNOSES: 1. Atrial flutter, status post cardioversion. 2. Chronic obstructive pulmonary disease. 3. Anxiety. 4. Depression. DISCHARGE MEDICATIONS: 1. Xanax 0.5 mg p.o. daily. 2. Eliquis 2.5 mg p.o. b.i.d. 3. Multaq 400 mg p.o. b.i.d. 4. Ferrous sulfate 159 mg p.o. daily. 5. Prozac 20 mg p.o. daily. 6. Breo Ellipta 1 inhalation daily. 7. Remeron 30 mg p.o. daily. INPATIENT CONSULTATIONS: 1. Dr. Hill, Pulmonary Critical Care. 2. Dr. Joseph, Cardiology. INPATIENT PROCEDURES: PARMINDER cardioversion performed on 09/14/2017 which revealed normal systolic funct ion, left atrial appendage was without mass or thrombus. INPATIENT RADIOGRAPHIC EXAMINATIONS: 1. CTA of the chest which revealed no evidence of pulmonary embolism. There is pneumonia. Indeterm inant left upper lobe lung nodules. 2. CT of the brain which revealed no evidence of an acute intracranial process. BRIEF HOSPITAL COURSE: Ms. Sadie Juarez is an 81-year-old female who presented to the emergency room co mplaining of weakness and palpitations. She then arrived to the emergency room and subsequently admi tted for tachycardia which turned out to be atrial flutter. The patient was then seen by Cardiology who recommended a PARMINDER cardioversion. This was performed on 09/14/2017 and the patient tolerated the procedure well. She remained in normal sinus rhythm. In regards to the pneumonia seen on CAT scan, Pulmonary was consulted and decided that she did not require antibiotics at that time. The patient d id well after her PARMINDER cardioversion. She has not had any palpitations. No weakness or shortness of breath or dyspnea. Her beta blockers have been discontinued. She will remain on Multaq and Eliquis. In regards to the findings seen on x-ray, antibiotics were not given and the findings seen on CTA, I told that she needs to follow up with Pulmonary as an outpatient. I have also explained this to [facility] family at bedside. She has been cleared from a Cardiology standpoint and will be discharged home l chazr today in stable condition. I have also told that if she experiences any further palpitations, c hest pain, shortness of breath, dizziness, and she should contact her PCP, Cardiology or a return gricelda k to the emergency room. She is doing well. She remained in normal sinus rhythm discharge; however, today in stable condition. DISCHARGE DIET: Heart healthy. ACTIVITY: As tolerated. RESTRICTIONS: None. CODE STATUS: DNR. ALLERGIES: No known drug allergies. DISCHARGE FOLLOWUP: 1. Dr. Joseph: 2. Dr. Hill as needed as well as to follow up on findings seen on the CTA and explained this to the patient as well as the family at bedside. He is agreeable to the plan of discharge. All questions have been answered. The patient's total discharge time 36 minutes.
== END 2017-09-15 11:32 | disposition home health service (06) | DRG 309 ==
LOC: ERS 14:10 → OBSVTOIN 17:07 → ERHOLD 17:07 → 2NO 09-12 03:07
PROVIDERS: ADMIT Internal Medicine; ATTEND Internal Medicine
PROC: 5A2204Z Restoration of Cardiac Rhythm, Single (ICD-10-PCS; principal; 2017-09-14)
PROC: B24BZZ4 Ultrasonography of Heart with Aorta, Transesophageal (ICD-10-PCS; 2017-09-14)
DX: I48.92 Unspecified atrial flutter (principal); E87.2 Acidosis; E46 Unspecified protein-calorie malnutrition; J44.9 Chronic obstructive pulmonary disease, unspecified; Z68.1 Body mass index [BMI] 19.9 or less, adult; F41.9 Anxiety disorder, unspecified; F32.9 Major depressive disorder, single episode, unspecified; Z66 Do not resuscitate; I44.30 Unspecified atrioventricular block; J45.909 Unspecified asthma, uncomplicated
CPT/HCPCS: 36415; 70450; 71045; 71275; 80053; 81001; 82550; 82553; 83605; 83735; 84443; 84484; 85025; 85379; 87040; 87086; 92960; 93005; 93010; 93306; 93312; 94664; 94760; 96361; 96365; 96367; 96372; 96375; A4216; G8978-GP-CI; G8979-GP-CI; G8980-GP-CI; J0692; J1580; J1650; J2405; J2704; J3370; J7050

== ENCOUNTER 2018-11-13 10:42 | Inpatient (IN) | payer MEDICARE, BC ==
[2018-11-13 11:39] LABS: #Eosinphils 0.1 thou/uL (0.0-0.7); #Monocytes 0.5 thou/uL (0.11-0.59); #Neutrophils 7.1 thou/uL (1.40-6.50); %Basophils 0.4 % (0.0-1.0); %Eosinophils 0.7 % (0.0-10.0); %Lymphocytes 11.9 % (21.0-51.0); %Monocytes 5.6 % (0.0-10.0); %Neutrophils 81.3 % (42.0-75.0); Hemoglobin 10.1 g/dL (12.0-16.0); Mean Corpuscular HGB CONC 29.5 g/dL (32.0-36.0); Mean Corpuscular Hemoglobin 20.2 pg (27.0-31.0); Mean Corpuscular Volume 68.4 fL (78.0-98.0); Mean Platelet Volume 8.5 fL (7.4-10.4); Platelet Count 406 thou/uL (130-400); RBC Distribution Width 16.9 % (11.5-14.5); Red Blood Cell (RBC) Count 5.02 mill/uL (4.20-5.40); White Blood Cell (WBC) Count 8.7 thou/uL (4.8-10.8)
[2018-11-13 11:51] LABS: ALT (SGPT) 11 U/L (8-55); AST (SGOT) 14 U/L (5-34); Albumin 3.7 g/dL (3.4-4.8); Alkaline Phosphatase 62 U/L (40-150); Anion Gap 10 mmol/L (10-20); BUN (Urea Nitrogen) 16 mg/dL (9.8-20.1); Bilirubin, Total 0.5 mg/dL (0.2-1.2); Calc. Creatinine Clearance 0 mL/min (70-130); Calcium 9.7 mg/dL (7.8-10.44); Carbon Dioxide 28 mmol/L (23-31); Chloride 103 mmol/L (98-107); Estimated GFR-MDRD 65; Globulin 3.3 g/dL (2.4-3.5); Glucose 90 mg/dL (83-110); Potassium 4.3 mmol/L (3.5-5.1); Sodium 137 mmol/L (136-145)
[2018-11-13 11:54] LABS: PTT 29.5 SEC (22.9-36.1)
--- NOTE | 2018-11-13 11:56 | RAD ---
PORTABLE CHEST ONE VIEW: Date: 11-13-18 Time: 11:18 a.m. History: Dyspnea. FINDINGS/IMPRESSION: Comparison made with exam of 09-11-17. The heart size is normal. The lungs are expanded with patchy con solidation in the lingula again seen. Infiltrates in the right lung base noted on the previous study has resolved in the interim. No pneumothorax or pleural effusion is seen. POS: C
[2018-11-13 12:11] LABS: Hypochromia SLIGHT = 6-15 cells (100X) (0-5/hpf); MDiff Complete? YES; Microcytosis MODERATE=15-30 cells (100X) (0-5/hpf); Platelet Morphology Comment Appears Decreased; Polychromasia SLIGHT = 2-3 cells (100X) (0-2/hpf)
[2018-11-13] MEDS ORDERED: Aspirin Chewable 81 MG TAB ONE (13:44)
--- NOTE | 2018-11-13 14:16 | CT ---
CT HEAD WITHOUT CONTRAST: Multiple axial tomograms were obtained through the head without IV enhancement. INDICATION: Mental status change. COMPARISON: 09/11/2017. FINDINGS: No evidence of intracranial mass or hemorrhage. No evidence of acute infarct. Mild chronic ischemic white matter change appears stable. Sinuses and mastoids appear clear. IMPRESSION: No acute finding. POS: CARMELO
--- NOTE | 2018-11-13 16:07 | PDOC.EVN ---
Event Note - Event Note Event Note: Discussed case with Joelle Gaona. Patient has been having weight loss and chronic respiratory symptoms. Outside CT with nodular bronchiectasis consistent with SURINDER. She actually seems to be improving symptomatically per records. Will consult Pulmonary and ID. Anticipate she will need to be long- term outpatient therapy for SURINDER. Has some SUAZO and may benefit from home oxygen. If assess to see if she qualifies.
[2018-11-13 17:08] LABS: Troponin I Less than 0.010 ng/mL (< 0.028)
[2018-11-13 17:24] LABS: Free T4 (Free Thyroxine) 0.91 ng/dL (0.70-1.48); Thyroid Stimulating Hormone 4.8501 uIU/mL (0.35-4.94)
[2018-11-13] MEDS ORDERED: Dronedarone HCl 400 MG TAB PO SCH (18:45)
[2018-11-13 18:47] LABS: Troponin I 0.012 ng/mL (< 0.028)
[2018-11-13] MEDS ORDERED: hydrALAZINE 20 MG/ML VIAL SLOW IVP PRN (19:02)
[2018-11-13] MEDS ORDERED: Diabetic Tussin 200 MG/10 ML UDCUP PO PRN (19:02)
[2018-11-13 20:24] VITALS: BMI 17.4
[2018-11-13] MEDS: Apixaban 2.5 MG TAB PO SCH (20:37)
[2018-11-13] MEDS: Acetaminophen 500 MG TAB PO PRN (20:40)
--- NOTE | 2018-11-14 00:57 | HP ---
CHIEF COMPLAINT: Shortness of breath with generalized weakness. HISTORY OF PRESENT ILLNESS: The patient is a pleasant 83-year-old female with past medical history significant for history of asthma treated by Dr. Hill; history of pneumonia x2 in September of 2017; paroxysmal atrial fibrillation, status post PARMINDER and cardioversion, September 2017, on anticoagulation with Eliquis, who presented to the ER today with complaints of shortness of breath. The patient had been seen by her primary care doctor on October 31, 2018, and was diagnosed with an upper respiratory infection at that time. She was given Rocephin, methylprednisolone, and dexamethasone. The patient continued to have symptoms, and returned back to PCP, who diagnosed her with pneumonia, and she was given a course of Levaquin. The patient reports that her fever, chills, and cough resolved, however, she has remained short of breath. She describes worsening dyspnea on exertion, which she reports makes her legs feel very weak. She denies any dizziness, chest pain, palpitations, or unilateral weakness in either leg. She had a repeat CT scan performed yesterday, November 12, 2018, which showed focal consolidation with volume loss, bronchiectasis and mucous plugging in the inferior lingula. There is also mild bronchiectasis in the lower lobes bilaterally with mucous plugging and multiple small peribronchiolar nodules, which may relate to chronic infection such as SURINDER. The patient was told by her PCP to present to the ER yesterday, but she refused to go with EMS. Today, her family came to her residence and brought her to the ER. The patient tells me that she has been prescribed inhalers by her can stacker, that she has been noncompliant with. She was previously on Breo. She has also been instructed to do breathing treatments at home 4 times a day, which she also has not been doing, because she states it makes her feel "jittery." As mentioned, she denies any other symptoms at this point. On arrival to our ER, EKG shows normal sinus rhythm with a ventricular rate of 66 beats per minute. Vital signs on arrival were 174/72, O2 saturation of 98% on room air, and respirations 16. The patient was afebrile. Labs showed a white blood cell count of 8.7, hemoglobin of 10.1, and hematocrit 34.4. ALLERGIES: NO KNOWN DRUG ALLERGIES. HOME MEDICATIONS: 1. Eliquis 2.5 mg b.i.d. 2. Multaq 400 mg b.i.d. PAST MEDICAL HISTORY: 1. Asthmatic bronchitis. 2. Paroxysmal atrial fibrillation. 3. Anxiety and depression. SOCIAL HISTORY: The patient lives at home with a caregiver. She has never smoked, but states that she was exposed to secondhand smoke for many years. She does not use alcohol or use illicit drugs. She lost her just over a year ago, but does live with caregivers. FAMILY HISTORY: No significant family history of cardiovascular valvular disease or respiratory issues. REVIEW OF SYSTEMS: CONSTITUTIONAL: Negative for fever or chills, positive for an approximate 20 pounds weight loss over the last year and a half since her . EYES: Negative for injury, pain, or discharge. ENT: Negative for sinus drainage, pressure, or ear pain. NECK: Negative for pain and swelling. CARDIOVASCULAR: Negative for chest pain, palpitations, or edema. RESPIRATORY: As above, the patient reports progressive dyspnea on exertion. She denies any shortness of breath at rest. She states her cough has resolved. BACK: Negative for injury or pain. SKIN: Negative for any rashes. GI: Negative for any hematochezia or melena. : Negative for dysuria or blood in the urine. PHYSICAL EXAMINATION: GENERAL: This is a thin female, resting comfortably in bed, in no acute distress. NECK: Trachea is midline. No JVD. No carotid bruits. No lymphadenopathy. CV: S1 and S2. Regular rate and rhythm, no appreciable murmurs, rubs, or gallops. LUNGS: Regular respiratory rate and pattern. Bilateral lower lung kumar, have poor vesicular air movement with some rales noted. ABDOMEN: Soft and nontender. Positive bowel sounds. EXTREMITIES: +2 DP pulses bilaterally. No edema. NEUROLOGIC: Cranial nerves 2 through 12 grossly intact. The patient is nonfocal. +5/5 strength in both upper and lower extremities. LABORATORY DATA: White blood cell count 8.7, hemoglobin 10.1, MCV 68.4, hematocrit 34.4, PT 13, INR 1.0. Sodium 137, potassium 4.3, chloride 103, BUN 16, and creatinine 0.84. Liver function tests are in normal limits. BNP is 184. TSH is 4.85, free T4 of 0.91. Imaging CT of the chest as described in the HPI. ASSESSMENT: 1. Progressive shortness of breath with exertion. 2. 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 3. Recent pneumonia status post treatment with Levaquin. 4. Paroxysmal atrial fibrillation flutter, status post PARMINDER and cardioversion in September 2017. CHADS-VASc score of 3. 5. History of asthma with somewhat issue of noncompliance with prescribed inhalers and breathing treatments. 6. Chronic anemia. PLAN: We will consult the patient's can stacker, Dr. Hill for further recommendations regarding new CT findings. We will also consult ID. For now, we will continue pulmonary toilet with breathing treatments, we will perform O2 desat study. We will continue her home medications of Eliquis and Multaq. Continue telemetry monitoring. The assessment and plan have been discussed with Dr. Escudero, and he agrees with the plan. Job ID: [id number]
[2018-11-14 07:22] LABS: #Eosinphils 0.1 thou/uL (0.0-0.7); #Lymphocytes 1.3 thou/uL (1.20-3.40); #Monocytes 0.6 thou/uL (0.11-0.59); #Neutrophils 4.6 thou/uL (1.40-6.50); %Basophils 0.7 % (0.0-1.0); %Eosinophils 1.8 % (0.0-10.0); %Lymphocytes 19.7 % (21.0-51.0); %Monocytes 8.4 % (0.0-10.0); %Neutrophils 69.4 % (42.0-75.0); Hemoglobin 9.4 g/dL (12.0-16.0); Mean Corpuscular HGB CONC 30.2 g/dL (32.0-36.0); Mean Corpuscular Hemoglobin 20.4 pg (27.0-31.0); Mean Corpuscular Volume 67.6 fL (78.0-98.0); Mean Platelet Volume 8.7 fL (7.4-10.4); Platelet Count 340 thou/uL (130-400); RBC Distribution Width 16.7 % (11.5-14.5); White Blood Cell (WBC) Count 6.6 thou/uL (4.8-10.8)
[2018-11-14 07:32] LABS: Anion Gap 11 mmol/L (10-20); BUN (Urea Nitrogen) 12 mg/dL (9.8-20.1); Calc. Creatinine Clearance 46 mL/min (70-130); Calcium 9.1 mg/dL (7.8-10.44); Carbon Dioxide 25 mmol/L (23-31); Chloride 105 mmol/L (98-107); Estimated GFR-MDRD 74; Glucose 91 mg/dL (83-110); Potassium 4.3 mmol/L (3.5-5.1); Sodium 137 mmol/L (136-145)
[2018-11-14] MEDS: Apixaban 2.5 MG TAB PO SCH ×2 (08:08→20:43)
[2018-11-14] MEDS: Dronedarone HCl 400 MG TAB PO SCH ×2 (08:09→17:06)
[2018-11-14] MEDS: Acetaminophen 500 MG TAB PO PRN (09:57)
--- NOTE | 2018-11-14 11:38 | CON ---
DATE OF CONSULTATION: HISTORY OF PRESENT ILLNESS: Sadie Juarez is an 83-year-old female, who has seen Dr. Hill, presented with symptoms of shortness of breath, cough, lightheaded and dizziness symptoms. She had a CT done, which shows no acute finding. She had an x-ray taken, which shows chronic changes in the left base. She had a CT done of her chest in September of 2017, which showed evidence of extensive lingular bronchiectatic changes. She says most days she is relatively active. In fact, she has never smoked. Today, she is coughing some yellow sputum. PAST MEDICAL HISTORY: Chronic bronchitis, bronchiectasis, COPD, nonsmoker, coronary artery disease, hypertension, unknown neurological problems, anxiety, depression, and hypertension. PREVIOUS SURGERIES: None. 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 HOME MEDICATIONS: 1. Multaq 400 twice a day. 2. Eliquis 2.5. 3. Xanax p.r.n. SOCIAL AND FAMILY HISTORY: Noted. REVIEW OF SYSTEMS: Otherwise 10-point negative. PHYSICAL EXAMINATION: VITAL SIGNS: Sats are 90% on room air, temperature 98, pulse 50, respiratory rate 18, and blood pressure 190/56. CHEST: Extensive rhonchi and crackles, left greater than right. CARDIAC: Normal S1, S2. No gallops. ABDOMEN: No masses. IMPRESSION: 1. Left lower lung bronchiectatic changes and pneumonia. 2. Chronic obstructive pulmonary disease and bronchitis. 3. Cardiac arrhythmias. PLAN: Empiric antibiotics, sputum culture, neb treatments, and low-dose prednisone. We will notify Dr. Hill. Consultation note, 70 minutes, 50% direct patient care. Job ID: [id number]
[2018-11-14 16:16] LABS: Iron 13 ug/dL (50-170); Iron Binding Capacity, Total 373 mcg/dL (265-497); Transferrin, Serum 298 mg/dL (173-360)
--- NOTE | 2018-11-14 16:46 | CON ---
DATE OF CONSULTATION: 11/14/2018 REASON FOR CONSULTATION: Dyspnea. HISTORY OF PRESENT ILLNESS: An 83-year-old history of asthma, who has had episodes of pneumonia in the recent past. She remembers one episode for example about [address] Joseph diagnosed and treated with reportedly antimicrobials and corticosteroids with improvement. She also suffers from atrial fibrillation and had a recent PARMINDER and cardioversion and had been on Eliquis as well as Multaq. For the past few weeks, she has noticed worsening dyspnea and cough with some sputum production. She has been treated with various antimicrobials without improvement. Those have included Rocephin and levofloxacin. She had a CT scan, which showed the findings described below and then she was admitted. The main thing is bothering her is nausea when she walks reportedly. No headaches, maybe some headaches intermittently. No visual symptoms. No sore throat, odynophagia, or dysphagia. No dental pain. No back pain. No chest pain. She has not produced much sputum lately. No abdominal symptoms. No diarrhea. She is actually constipated. No genitourinary symptoms. No neurological symptoms or skin disorder. She does not have any major joint symptoms except for the hands, where she has chronic osteoarthrosis. PAST MEDICAL HISTORY: Asthma, atrial fibrillation, recurrent episodes of pneumonia for the past year or so. ALLERGY HISTORY: Includes BuSpar. SOCIAL HISTORY: Never smoker. Although, she was a secondhand exposed person. No alcoholic beverage use. Lives with caregivers by herself. FAMILY HISTORY: Noncontributory. She has no travel history. [place] all the animals have been sold and she used to grow mostly hay for animal feeding. PHYSICAL EXAMINATION: VITAL SIGNS: Temperature max 98.9, blood pressure 119/56, pulse 58, respirations 16, and O2 saturation 94%. SKIN: Not remarkable. She has a peripheral IV access and is voiding in the toilet. LYMPHATICS: No lymphadenopathy. HEENT: Ocular movements conjugate. Sclerae white. Pupils are equal. Conjunctivae are normal. Nasal passages patent. Ear exam normal. Oral cavity is not remarkable. NECK: Supple without jugular vein distention. No thyromegaly. LUNGS: No wheezing noted. A few crackles in scattered areas at the bases. HEART: S1 and S2. Regular rate. No S3 or S4. ABDOMEN: Soft. Not distended or tender. No ascites. No bladder distention. MUSCULOSKELETAL: Osteoarthrosis in hands, but no other areas of joint inflammatory change. EXTREMITIES: Pulses 1+ in dorsalis pedis. No edema. Plantar responses are flexor. Strength in all extremities is preserved. NEUROLOGIC: Cognitive function appears to be intact. LABORATORY DATA: White cell count 6.6, hemoglobin 9.4, platelets 340, 69% neutrophils. INR 1.0. Chemistry is fairly unremarkable. Albumin normal. TSH 5.06. Troponin less than 0.01. She had a chest CT on September 11, which showed no evidence of pulmonary embolism. Patchy reticulonodular infiltrates in lower lungs bilaterally with a few nodules in the left upper lobe. Chest x-ray shows patchy consolidation lingula, infiltrates in right lung base have resolved. ASSESSMENT: Atrial fibrillation, chronic recurrent pneumonitis, and history of asthma. DISCUSSION: Differential diagnosis includes atypical infectious pneumonitis with mycobacterial pathogens, fungal pathogens versus noninfectious causes of pneumonitis including possibility of drug-induced pneumonitis or cryptogenic organizing pneumonia. Malignancy is less likely. Vasculitis less likely. Pulmonary hemorrhage is not ruled out, but less likely. The patient will have sputum submitted for testing and may need a bronchoscopy for diagnostic purposes. Job ID: [id number]
[2018-11-14 16:49] LABS: Folate (Folic Acid) 6.7 ng/mL (7.0-31.4)
--- NOTE | 2018-11-14 18:51 | PRG ---
DATE OF SERVICE: 11/14/2018 SUBJECTIVE: Ms. Juarez is a pleasant 83-year-old female with past medical history significant for history of asthma treated by Dr. Hill, recurrent pneumonia, paroxysmal atrial fibrillation, and recent abnormal CT, who presented to the ER at the behest of her PCP for further workup and treatment. Her recent CT on November 12 showed some focal consolidation with volume loss, bronchiectasis, and mucus plugging. This morning, the patient is resting comfortably in bed. She continues to report shortness of breath with exertion along with now some associated nausea. She denies any chest pain. She has no symptoms while at rest. She continues to complain of poor appetite, which is a chronic issue for her. OBJECTIVE: VITAL SIGNS: Blood pressure 119/56, pulse is 58, O2 saturation is 94% on room air. The patient is afebrile. GENERAL: This is a thin elderly female, in no acute distress. NECK: Trachea is midline. No JVD. No carotid bruits. No lymphadenopathy. CV: S1 and S2. Regular rate and rhythm. No appreciable murmurs, rubs, or gallops. LUNGS: Regular respiratory rate and pattern, bilateral lower lung kumar have poor vesicular air movement with rales noted. ABDOMEN: Soft and nontender. Positive bowel sounds. EXTREMITIES: +2 DP pulses bilaterally. No edema. NEUROLOGIC: Cranial nerves 2 through 12 grossly intact. The patient is nonfocal. +5/5 strength in both upper and lower extremities. LABORATORY DATA: Hemoglobin 9.4, hematocrit 31.1, and platelet count 340. Sodium 137, potassium 4.3, chloride 105, creatinine 0.75, and glucose is 91. ASSESSMENT: 1. Progressive shortness of breath with exertion, questionably secondary to left lower lung bronchiectatic changes and possible atypical pneumonia. 2. Chronic obstructive pulmonary disease. 3. Recent pneumonia, status post treatment with Levaquin. 4. Paroxysmal atrial fibrillation and flutter, status post PARMINDER and cardioversion in September 2017, CHADS-VASc score of 3, currently in normal sinus rhythm. 5. Chronic anemia. PLAN: We will follow recommendations from Pulmonology and ID. We will need to workup the patient's anemia, and will obtain serum iron, total iron-binding capacity, and transferrin, along with stool screen for occult blood. We will also perform orthostatics, as well as desat study. Continue supplemental oxygen as needed. Continue telemetry monitoring. Job ID: [id number]
--- NOTE | 2018-11-14 18:56 | PRG ---
DATE OF SERVICE: 11/14/2018 SUBJECTIVE: The patient is a pleasant 83-year-old female with past medical history significant for asthma treated by Dr. Hill, history of recurrent pneumonias, paroxysmal atrial fibrillation, status post PARMINDER and cardioversion in September 2017, and recent abnormal CT scan showing bronchiectasis, mucous plugging, and nodular changes, who presented to the ER at the behest of her PCP after having the abnormal CT scan. The patient presented with worsening dyspnea on exertion. This morning, the patient continues to complain of dyspnea on exertion associated with nausea, which seems to be new. She denies any focal weakness in her legs, but continues to state that her legs feel weak when she is short of breath. She continues to complain of no appetite, which is a chronic problem for her. She denies any chest pain or vomiting. She denies any diarrhea. OBJECTIVE: VITAL SIGNS: Blood pressure 119/56, temp is 98.7, pulse 58, respirations 18, O2 saturation 94% on room air. GENERAL: This is a thin female, resting comfortably, no respiratory distress. NECK: Trachea is midline. No JVD. No carotid bruits. No lymphadenopathy. CV: S1, S2. Regular rate and rhythm. No appreciable murmurs, rubs, or gallops. LUNGS: Regular respiratory rate and pattern, bilateral lower lung kumar have poor vesicular air movement with rales noted. ABDOMEN: Soft and nontender. Positive bowel sounds. EXTREMITIES: +2 DP pulses bilaterally. No edema. NEUROLOGIC: Cranial nerves 2 through 12 grossly intact. The patient is nonfocal. +5/5 strength in both upper and lower extremities. LABORATORY DATA: Hemoglobin 9.4, hematocrit 31.3, MCV 67.6, platelet count is 340. Sodium 137, potassium 4.3, chloride 105, carbon dioxide 25, BUN 12, creatinine 0.75, glucose 91, calcium 9.1. ASSESSMENT: 1. Dyspnea on exertion with new CT changes of the chest including focal consolidation, bronchiectasis, and peribronchial nodules. 2. Recurrent pneumonias. 3. Chronic obstructive pulmonary disease/asthma. 4. Paroxysmal atrial fibrillation/flutter, status post PARMINDER and cardioversion in September 2017. CHADS-VASc score of 3, currently in normal sinus rhythm, chronic anemia. PLAN: We will continue to follow recommendations of both Infectious Disease and Pulmonology. Input greatly appreciated. Regarding her anemia, we will obtain serum iron, total iron binding capacity, transferrin, and obtain screen for occult blood in her stool. We will also obtain orthostatics and perform an oxygen desaturation study. I have also counseled the patient on adequate calorie intake. Job ID: [id number]
[2018-11-14] MEDS: guaiFENesin ER 600 MG TAB PO SCH (20:43)
[2018-11-15] MEDS: Dronedarone HCl 400 MG TAB PO SCH ×2 (09:04→16:41)
[2018-11-15] MEDS: guaiFENesin ER 600 MG TAB PO SCH ×2 (09:04→20:40)
[2018-11-15] MEDS: Apixaban 2.5 MG TAB PO SCH ×2 (09:04→20:40)
[2018-11-15] MEDS ORDERED: Folic Acid 1 MG TAB PO SCH (10:15)
--- NOTE | 2018-11-15 13:39 | MRI ---
NONCONTRAST MRI BRAIN: DATE: 11/15/2018. HISTORY: Generalized weakness and dizziness. FINDINGS: There are punctate and patchy areas of increased FLAIR and T2 weighted signal intensity seen in the p eriventricular and subcortical white matter which are nonspecific but likely reflective of chronic sm all-vessel ischemic changes. There is no evidence of an acute infarction. Mild cerebral and cerebellar volume loss is present. The ventricular system is normal in size, shape , and position for the degree of sulcal atrophy. Appropriate flow voids are demonstrated at the base of the brain. Mucosal thickening is present in the left sphenoid sinus. [place] lenses are not visualized. The skull base has a normal nonenhanced MRI appearance. IMPRESSION: 1. No acute intracranial abnormality is demonstrated. 2. Chronic small-vessel ischemic changes and cerebral volume loss. 3. Sinus disease involving the left sphenoid sinus. POS: CARMELO
--- NOTE | 2018-11-15 15:01 | PRG ---
DATE OF SERVICE: 11/15/2018 SUBJECTIVE: Feeling better, less cough, less dyspnea or chest pain. No abdominal pain, no diarrhea. OBJECTIVE: VITAL SIGNS: Temperature max 98.7, BP 140/60, pulse 83, respirations 18, O2 saturation 96%. GENERAL: Awake, alert, oriented. LUNGS: Symmetric air entry. HEART: S1, S2. Regular rate. No wheezing. ABDOMEN: Soft, not distended. NEUROLOGIC: Nonfocal. LABORATORY DATA: White cell count 6.6, hemoglobin 9.4, platelets 340, 69% neutrophils, which is down from admission. Iron 13, TIBC 373, folate 6.7. IMAGING: She had a brain MRI, which demonstrated no acute intracranial abnormality, which has some chronic small vessel ischemic changes, left sphenoid sinus disease. ASSESSMENT AND DISCUSSION: 1. Atrial fibrillation with chronic recurrent pneumonitis. 2. History of asthma. 3. Again, an atypical infectious pneumonia with mycobacterial pathogen, fungal pathogen versus noninfectious cause of pneumonitis. The possibility of drug-induced or cryptogenic organizing pneumonia is less likely. 4. Malignancy less likely. 5. The possibility of silent aspiration will have to be considered as well and we will order a speech therapy evaluation. Job ID: [id number]
--- NOTE | 2018-11-15 15:06 | PDOC.PN ---
- Subjective Encounter Start Date: 11/15/18 Encounter Start Time: 14:45 Subjective: f/u for pneumonitis/bronchiectasis on current Levaquin/Duonebs. Feels -: fine today. Ambulated with PT using walker. Appetite improved. - Objective Resuscitation Status - Order Detail: 11/13/18 15:49 Resuscitation Status Routine Co-Sign Provider: Resuscitation Status: DNAR: NO Resuscitation Discussed with: Patient and family MAR Reviewed: Yes Vital Signs & Weight: Vital Signs (12 hours) Temp Pulse Resp BP Pulse Ox 11/15/18 14:07 72 12 11/15/18 08:00 96 11/15/18 07:41 97.8 F 83 18 148/64 H 96 11/15/18 07:20 67 12 Weight Weight 111 lb I&O: 11/14/18 11/15/18 11/16/18 06:59 06:59 06:59 Intake Total 300 740 Balance 300 740 Result Diagrams: 11/14/18 06:49 11/14/18 06:49 Additional Labs: Microbiology 11/15/18 09:10 Sputum Respiratory Culture - Preliminary Laboratory Tests 11/13/18 11/14/18 11/14/18 16:31 15:42 15:42 Iron 13 L TIBC 373 Transferrin 298 Vitamin B12 468 Folate 6.70 L Free T4 0.91 TSH 3rd Generation 4.8501 Radiology Reviewed by me: Yes (MRI Brain - no acute changes) Phys Exam - Physical Examination Constitutional: NAD smiling, alert HEENT: PERRLA, sclera anicteric, oral pharynx no lesions Neck: no nodes, no JVD, supple, full ROM Respiratory: no wheezing, no rales, no rhonchi, clear to auscultation bilateral Cardiovascular: RRR, no significant murmur, no rub, gallop Gastrointestinal: soft, non-tender, no distention, positive bowel sounds Musculoskeletal: no edema, pulses present Neurological: non-focal, normal sensation, moves all 4 limbs Psychiatric: A&O x 3 Skin: no rash, normal turgor, cap refill <2 seconds Dx/Plan (1) Bronchiectasis Code(s): J47.9 - BRONCHIECTASIS, UNCOMPLICATED Status: Chronic Comment: Continue pulmonary supportive mgmt, see #2, sputum cx pending (2) PNA (pneumonia) Code(s): J18.9 - PNEUMONIA, UNSPECIFIED ORGANISM Status: Acute Qualifiers: Laterality: unspecified laterality Lung location: unspecified part of lung Comment: Suspected bacterial etiology, continue Levaquin, bronchodilators (3) Microcytic anemia Code(s): D50.9 - IRON DEFICIENCY ANEMIA, UNSPECIFIED Status: Chronic Comment : Add FeSO4 325mg BID, continue Folate - Plan plan discussed w/ family, continue antibiotics, PT/OT, social services assistant, out of bed/ambulate, DVT proph w/SCDs Stable currently -: Continue Pulmonary supportive mgmt -: Await final sputum cx results -: OOB with PT -: Likely home in am 11/16/18 * .
[2018-11-15] MEDS: Ferrous Sulfate 325 MG TAB PO SCH (16:41)
--- NOTE | 2018-11-15 18:42 | PRG ---
DATE OF SERVICE: 11/15/2018 SUBJECTIVE: Ms. Hennign's events have been reviewed. It appears that she had one dose of BuSpar and then became extremely weak, and said she could not move her legs and could not get out. It is now felt that maybe the BuSpar was the culprit as the symptoms have resolved. She had an MRI today that did not show any brain parenchymal abnormalities other than chronic ischemic white matter changes. She weighs maybe 105 pounds. 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 I never saw in the office other than with him, but I have seen her frequently in the office lately. Chest x-ray upon presentation shows an infiltrate in the lingula. OBJECTIVE: LUNGS: Clear on exam now. HEART: Regular rhythm. ABDOMEN: Soft. EXTREMITIES: Without edema. NEUROLOGIC: Nonfocal. IMPRESSION: 1. Bronchiectasis. 2. Pneumonia. 3. Asthma, it appears to be stable at this time. 4. BuSpar reaction. My opinion, she could be considered for discharge in the morning. Job ID: [id number]
[2018-11-16 07:02] LABS: Anion Gap 11 mmol/L (10-20); BUN (Urea Nitrogen) 10 mg/dL (9.8-20.1); Calc. Creatinine Clearance 45 mL/min (70-130); Calcium 9.2 mg/dL (7.8-10.44); Carbon Dioxide 24 mmol/L (23-31); Chloride 107 mmol/L (98-107); Estimated GFR-MDRD 72; Glucose 99 mg/dL (83-110); Potassium 3.8 mmol/L (3.5-5.1); Sodium 138 mmol/L (136-145)
[2018-11-16 08:01] LABS: #Eosinphils 0.1 thou/uL (0.0-0.7); #Lymphocytes 1.3 thou/uL (1.20-3.40); #Monocytes 0.4 thou/uL (0.11-0.59); #Neutrophils 5.3 thou/uL (1.40-6.50); %Basophils 0.4 % (0.0-1.0); %Monocytes 5.8 % (0.0-10.0); %Neutrophils 74.7 % (42.0-75.0); Anisocytosis SLIGHT = 6-15 cells (100X) (0-5/hpf); Hemoglobin 8.6 g/dL (12.0-16.0); Hypochromia SLIGHT = 6-15 cells (100X) (0-5/hpf); MDiff Complete? YES; Mean Corpuscular Hemoglobin 20.3 pg (27.0-31.0); Mean Corpuscular Volume 67.8 fL (78.0-98.0); Mean Platelet Volume 8.6 fL (7.4-10.4); Ovalocytes SLIGHT = 2-5 cells (100X) (0-1/hpf); Platelet Count 307 thou/uL (130-400); Poikilocytosis SLIGHT = 6-15 cells (100X) (0-5/hpf); RBC Distribution Width 17.1 % (11.5-14.5); Red Blood Cell (RBC) Count 4.22 mill/uL (4.20-5.40); White Blood Cell (WBC) Count 7.1 thou/uL (4.8-10.8)
[2018-11-16] MEDS: Ferrous Sulfate 325 MG TAB PO SCH (08:32)
[2018-11-16] MEDS: Apixaban 2.5 MG TAB PO SCH (08:33)
[2018-11-16] MEDS: guaiFENesin ER 600 MG TAB PO SCH (08:33)
[2018-11-16] MEDS: Dronedarone HCl 400 MG TAB PO SCH (08:33)
[2018-11-16] MEDS ORDERED: Folic Acid 1 MG TAB PO SCH (09:00)
[2018-11-16 13:20] VITALS: BP 161/79; TEMP 98.1
--- NOTE | 2018-11-16 15:34 | EKG ---
Test Reason : Blood Pressure : / mmHG Vent. Rate : 066 BPM Atrial Rate : 066 BPM P-R Int : 156 ms QRS Dur : 086 ms QT Int : 402 ms P-R-T Axes : 081 -50 052 degrees QTc Int : 421 ms Normal sinus rhythm Left anterior fascicular block Abnormal ECG No ST elevation/PR Confirmed by ERIC CAMPBELL M.D. ([id number]), makeup editor AGNES CARDONA ([id number]) on 11/16/2018 3:33:59 PM Referred By: Confirmed By:ERIC CAMPBELL M.D.
--- NOTE | 2018-11-16 16:14 | DIS ---
DATE OF ADMISSION: 11/13/2018 DATE OF DISCHARGE: 11/16/2018 ALLERGIES: BUSPIRONE. CHIEF COMPLAINT: Shortness of breath with exertion. FINAL DIAGNOSES: 1. Abnormal chest CT with focal consolidation, bronchiectasis, mucous plugging, and peribronchial nodules consistent with atypical infectious pneumonitis with mycobacterial pathogens, fungal pathogens versus noninfectious cause of pneumonitis. 2. Asthma. 3. Paroxysmal atrial fibrillation flutter status post transesophageal echocardiography and cardioversion in 2018. CHADS-VASc of 3, currently in normal sinus rhythm. 4. Iron-deficiency anemia. LABORATORY RESULTS: White blood cell count 7.1, hemoglobin 8.6, platelet count 307. Sodium 138, potassium 3.8, chloride 107, BUN 10, creatinine 0.77. Troponin was negative x2. BNP 184. TSH 5.066. Free T4 of 0.9, folate 6.7, vitamin B12 of 468, TIBC 373. Iron 13, transferrin 298. IMAGING RESULTS: CT scan performed on November 12, 2018, showed focal consolidation with volume loss, bronchiectasis, and mucous plugging in the inferior lingula with bronchiectasis in the lower lobes bilaterally. Chest x-ray performed on November 13, showed lungs are expanded with patchy consolidation in the lingula, infiltration in the right lung base noted on the previous study had resolved. Brain CT, no evidence of intracranial mass or hemorrhage. Mild chronic ischemic changes. No acute findings. Brain MRI, no acute intracranial abnormality demonstrated, chronic small-vessel ischemic changes and cerebral volume loss, sinus disease involving the left sphenoid sinus. CONSULTATIONS: 1. Dr. Cuellar and Dr. Hill with pulmonology. 2. Dr. Patterson, Infectious Disease. HOSPITAL COURSE: The patient is an 83-year-old female with past medical history significant for asthma, treated by Dr. Hill, history of pneumonia x2 in September 2017, paroxysmal atrial fibrillation, CHADS-VASc of 3, in sinus rhythm with Multaq, who presented to the ER with complaints of short shortness of breath. The patient had been seen by her primary care doctor on October 31. She was given Rocephin, methylprednisolone, and dexamethasone. The patient continued to have symptoms and went back to her PCP, who diagnosed with pneumonia and was given a course of Levaquin. The patient reported that her fever, chills, and cough did completely resolve, but she has continued to remain short of breath. She described dyspnea on exertion and intermittent associated nausea with that. She denies any dizziness, chest pain, palpitations, or weakness. She had a repeat CT scan performed on November 12, 2018, which showed focal consolidation with volume loss, bronchiectasis, and mucous plugging in inferior lingula. There was also mild bronchiectasis in the lower lobes bilaterally with mucous plugging and multiple small peribronchiolar nodules, which could correlate to infection such as SURINDER. The patient was told by her PCP to present to the ER for further workup and treatment. She was admitted for further evaluation and both ID and Pulmonology consults. Throughout her stay, the patient was nontoxic. She had no white count or fever present. She was seen by both Dr. Cuellar and Dr. Hill. She was prescribed pulmonary toilet with breathing treatments scheduled, Mucinex, and started back on Levaquin 500 mg p.o. daily. The patient was seen also by physical therapy. She had a swallowing study that was negative for any aspiration. Imaging studies outlined as above. The patient's symptoms have improved since her admission. She reports that the breathing treatments have alleviated her shortness of breath. Her legs feel stronger. She denies any nausea or vomiting today and is in good spirits. She has been cleared by her structural shop helper for continued treatment in the outpatient setting. She was diagnosed with iron-deficiency anemia, and has been started on both folate and iron supplements. PHYSICAL EXAMINATION: VITAL SIGNS: Blood pressure 125/61, pulse is 66, respirations 18, and O2 saturation is 96% on room air. GENERAL: This is a thin female, in no acute distress. Resting comfortably in bed. HEENT: Atraumatic and normocephalic. Eye movement intact. Mucous membranes are moist. NECK: Supple. No lymphadenopathy. No JVD. No carotid bruits. RESPIRATORY: Regular respiratory rate and pattern, overall clear to auscultation, although there are some faint crackles remaining in the bases. Although, vastly improved since her admission. CV: S1 and S2, regular rate and rhythm. No murmurs, rubs or gallops. GI: Soft and nontender. Positive bowel sounds. PERIPHERAL VASCULAR: No lower extremity edema. +2 DP pulses bilaterally. MUSCULOSKELETAL: No joint effusion or swelling. NEUROLOGIC: She is awake and alert and oriented. She has no focal deficits. Cranial nerves 2 through 12 grossly intact. SKIN: Normal and dry. No skin discoloration or rashes. CONDITION AT DISCHARGE: Stable. DISCHARGE MEDICATIONS: 1. Alprazolam 0.5 mg p.o. daily p.r.n. for anxiety. 2. Eliquis 2.5 mg one tablet p.o. b.i.d. 3. Multaq 400 mg tablet one p.o. b.i.d. with meals. 4. Mucinex 600 mg tablet one tablet p.o. b.i.d. 5. Folic acid 1 mg tablet one tablet p.o. daily. 6. Ferrous sulfate 325 mg p.o. b.i.d. with meals. 7. She will continue her DuoNeb at home. 8. Levofloxacin 500 mg tablet one tablet p.o. daily for the next seven days. DISCHARGE DISPOSITION: Home. PLAN: She will continue using her breathing treatments on a scheduled basis. Continue Levaquin for the next seven days. She will follow up with her PCP and her structural shop helper as well. The patient does have a home caregiver, and at this point, is largely independent in her ADLs. She will be discharged home today with continued followup in the outpatient setting. She will need to see her PCP for repeat CBC as well. This has all been explained to the patient. All of her questions have been answered to her satisfaction. Job ID: [id number]
== END 2018-11-16 13:15 | disposition home or self-care (01) | DRG 178 ==
LOC: ERS 10:42 → ERHOLD 15:44 → T4-A 19:13
PROVIDERS: ADMIT Internal Medicine; ATTEND Internal Medicine
DX: J15.8 Pneumonia due to other specified bacteria (principal); J47.0 Bronchiectasis with acute lower respiratory infection; J44.0 Chronic obstructive pulmonary disease with (acute) lower respiratory infection; I48.0 Paroxysmal atrial fibrillation; F41.9 Anxiety disorder, unspecified; F32.9 Major depressive disorder, single episode, unspecified; D50.9 Iron deficiency anemia, unspecified; R53.1 Weakness; T43.595A Adverse effect of other antipsychotics and neuroleptics, initial encounter; Y92.230 Patient room in hospital as the place of occurrence of the external cause; Z91.14 Patient's other noncompliance with medication regimen; I25.10 Atherosclerotic heart disease of native coronary artery without angina pectoris; I10 Essential (primary) hypertension; Z77.22 Contact with and (suspected) exposure to environmental tobacco smoke (acute) (chronic); Z79.01 Long term (current) use of anticoagulants; Z87.01 Personal history of pneumonia (recurrent); Z98.890 Other specified postprocedural states
CPT/HCPCS: 36415; 70450; 70551; 71045; 80048; 80053; 82607; 82746; 83540; 83550; 83880; 84439; 84443; 84466; 84484; 85025; 85610; 85730; 87070; 87116; 87205; 87206; 89220; 93005; 94640; J7620

== ENCOUNTER 2018-12-24 12:44 | Outpatient (CLI) | payer MEDICARE, BC ==
--- NOTE | 2018-12-24 14:18 | RAD ---
2 VIEW CHEST: Date: 12/24/18 HISTORY: Dyspnea. COMPARISON: 08/22/17 and a more recent portable film of 11/13/18. FINDINGS: There are chronic parenchymal changes seen in the lingula, which appears stable dating back to the exam. Mild hyperexpansion. No acute infiltrate. Heart size normal. Osseous structures unremarkable . IMPRESSION: Chronic parenchymal changes in the lingula appear stable. There are changes of COPD with hyperexpansi on. Calcified granuloma in the left upper lung is stable. No acute process apparent. POS: DAVIDH
== END 2018-12-24 12:45 | disposition home or self-care (01) ==
LOC: RAD 12:44
PROVIDERS: ATTEND Internal Medicine Critical Care Medicine
DX: R06.00 Dyspnea, unspecified (principal); J84.10 Pulmonary fibrosis, unspecified; J98.4 Other disorders of lung
CPT/HCPCS: 71046

== ENCOUNTER 2019-10-14 09:02 | Inpatient (IN) | payer MEDICARE, BC ==
[2019-10-14] MEDS ORDERED: cefTRIAXone\\ROCEPHIN 2 GM in Sodium Chloride 0.9% 100 ML IVPB SCH (10:00)
--- NOTE | 2019-10-14 10:07 | RAD ---
EXAM: Single view of the chest HISTORY: Weakness COMPARISON: 11/13/2018 FINDINGS: Single view of the chest shows a normal sized cardiomediastinal silhouette. Increased inte rstitial markings are present. There may be a superimposed infiltrate in the left lower lobe. No pleural effusion seen. The bones are unremarkable. IMPRESSION: Possible left lower lobe infiltrate.
[2019-10-14 10:14] LABS: #Lymphocytes 1.3 thou/uL (1.20-3.40); #Monocytes 0.5 thou/uL (0.11-0.59); %Basophils 0.4 % (0.0-1.0); %Eosinophils 0.3 % (0.0-10.0); %Lymphocytes 16.7 % (21.0-51.0); %Monocytes 6.3 % (0.0-10.0); %Neutrophils 76.3 % (42.0-75.0); White Blood Cell (WBC) Count 7.8 thou/uL (4.8-10.8)
[2019-10-14 10:18] LABS: ALT (SGPT) 10 U/L (8-55); AST (SGOT) 20 U/L (5-34); Albumin 3.7 g/dL (3.4-4.8); Alkaline Phosphatase 59 U/L (40-110); Anion Gap 20 mmol/L (10-20); BUN (Urea Nitrogen) 16 mg/dL (9.8-20.1); Bilirubin, Total 0.4 mg/dL (0.2-1.2); CK (CPK) 70 U/L (29-168); Calc. Creatinine Clearance 0 mL/min (70-130); Calcium 8.8 mg/dL (7.8-10.44); Carbon Dioxide 18 mmol/L (23-31); Chloride 103 mmol/L (98-107); Estimated GFR-MDRD 70; Globulin 3.3 g/dL (2.4-3.5); Glucose 86 mg/dL (83-110); Lipase 30 U/L (8-78); Potassium 4.6 mmol/L (3.5-5.1); Sodium 136 mmol/L (136-145)
[2019-10-14 10:20] LABS: Hemoglobin 10.7 g/dL (12.0-16.0); Mean Corpuscular HGB CONC 30.5 g/dL (32.0-36.0); Mean Corpuscular Hemoglobin 21.1 pg (27.0-31.0); Mean Corpuscular Volume 69.1 fL (78.0-98.0); Mean Platelet Volume 9.8 fL (7.4-10.4); Platelet Count 259 thou/uL (130-400); RBC Distribution Width 15.4 % (11.5-14.5); Red Blood Cell (RBC) Count 5.08 mill/uL (4.20-5.40)
[2019-10-14] MEDS ORDERED: cefTRIAXone\\ROCEPHIN 2 GM VIAL ONE (10:35)
[2019-10-14 10:37] LABS: Band 18 % (5-11); Hypochromia SLIGHT = 6-15 cells (100X) (0-5/hpf); Lymphocytes 17 % (21-51); MDiff Complete? YES; Microcytosis SLIGHT = 6-15 cells (100X) (0-5/hpf); Monocytes 1 % (0-10); Myelocyte 1 % (0-0); Neutrophil 63 % (42-75); Ovalocytes SLIGHT = 2-5 cells (100X) (0-1/hpf); Polychromasia SLIGHT = 2-3 cells (100X) (0-2/hpf)
[2019-10-14 10:40] LABS: CKMB 1.2 ng/mL (0-6.6)
[2019-10-14] MEDS ORDERED: Azithromycin 500 MG VIAL ONE (11:17)
[2019-10-14] MEDS ORDERED: Sodium Chloride 0.9% 500 ML IVPB SCH (11:45)
[2019-10-14] MEDS ORDERED: Aspirin Chewable 81 MG TAB ONE (12:02)
[2019-10-14] MEDS ORDERED: Diltiazem 125 MG/25 ML ONE (12:16)
[2019-10-14] MEDS ORDERED: Diltiazem 125 MG in Sodium Chloride 0.9% 100 ML IVPB SCH (12:30)
[2019-10-14 14:41] LABS: Troponin I 0.076 ng/mL (< 0.028)
[2019-10-14] MEDS ORDERED: Acetaminophen 325 MG TAB PO PRN (15:35)
[2019-10-14] MEDS ORDERED: Ondansetron PF 4 MG/2 ML Vial IVP PRN (15:35)
--- NOTE | 2019-10-14 16:58 | PDOC.HHP ---
Hospitalist HPI - History of Present Illness Cough, palpiations History of Present Illness: Ms. Juarez is an 84-year-old lady with past medical history of atrial fibrillation, hypertension, who presents to the emergency room with feeling of palpitations in the chest. Her heart rate was elevated into the 150s on admission and found to be in atrial fibrillation. She stated the palpitations started last night. She states that she feels weak and a bit nauseated. Additionally, she has had a cough since last week which she says is getting progressively worse, nonproductive. She denies any fever or chills or shortness of breath. She denies any recent sick contacts or recent travel. She states that she feels that her cough is getting worse to the point where she had some bleeding coming from her nose. She has known atrial fibrillation and her narrow fabric loom fixer Dr. Joseph. Hospitalist ROS - Review of Systems Constitutional: denies: fever, chills, sweats, weakness, malaise, other Eyes: denies: pain, vision change, conjunctivae inflammation, eyelid inflammation, redness, other ENT: denies: ear pain, ear discharge, nose pain, nose discharge, nose congestion , mouth pain, mouth swelling, throat pain, throat swelling, other Respiratory: reports: cough Cardiovascular: reports: palpitations. denies: chest pain, orthopnea, paroxysmal noc. dyspnea, edema, light headedness, other Gastrointestinal: denies: nausea, vomiting, abdominal pain, diarrhea, constipation, melena, hematochezia, other Genitourinary: denies: dysuria, frequency, incontinence, hematuria, retention, other Musculoskeletal: denies: neck pain, shoulder pain, arm pain, back pain, hand pain, leg pain, foot pain, other Skin: denies: rash, lesions, lolly, bruising, other Neurological: denies: weakness, numbness, incoordination, change in speech, confusion, seizures, other - Medication Medications: Medication Instructions Recorded Confirmed Type Dronedarone HCl [Multaq] 400 mg PO BID- #60 tab 09/15/17 10/14/19 Rx Doxycycline [Vibramycin] 100 mg PO BID 10/14/19 10/14/19 History clonazePAM [Clonazepam] 0.5 mg PO PRN PRN 10/14/19 10/14/19 History Hospitalist History - Past Medical History Cardiac: reports: AFIB, HTN Pulmonary: reports: no pertinent history RN FACULTY: reports: no pertinent history Gastrointestinal: reports: no pertinent history Heme/Onc: reports: no pertinent history Hepatobiliary: reports: no pertinent history Psych: reports: no pertinent history Musculoskeletal: reports: no pertinent history Rheumatologic: reports: no pertinent history Infectious Disease: reports: no pertinent history ENT: reports: no pertinent history Renal/: reports: no pertinent history Endocrine: reports: no pertinent history Dermatology: reports: no pertinent history - Past Surgical History Past Surgical History: reports: no pertinent history - Family History Family History: reports: cardiac disorder - Social History Smoking Status: Never smoker Alcohol: reports: None Drugs: reports: none Living Situation: Alone Activity level: independent ambulation - Exam General Appearance: NAD, awake alert Eye: PERRL, anicteric sclera ENT: normocephalic atraumatic, no oropharyngeal lesions, moist mucosa Neck: supple, symmetric, no JVD, no thyromegaly, no lymphadenopathy, no carotid bruit Heart: no murmur, no gallops, no rubs, normal peripheral pulses, irregular Respiratory: CTAB, no wheezes, no rales, no ronchi, normal chest expansion, no tachypnea, normal percussion Gastrointestinal: soft, non-tender, non-distended, normal bowel sounds, no palpable masses, no hepatomegaly, no splenomegaly, no bruit Extremities: no cyanosis, no clubbing, no edema Skin: normal turgor, no lesions, no rashes Neurological: cranial nerve grossly intact, normal sensation to touch, no weakness, no focal deficits, no new deficit Musculoskeletal: normal tone, normal strength, no muscle wasting Psychiatric: normal affect, normal behavior, A&O x 3 Hospitalist Results - Labs Result Diagrams: 10/14/19 09:44 10/14/19 09:44 Lab results: WBC 7.8 thou/uL (4.8-10.8) 10/14/19 09:44 Hgb 10.7 g/dL (12.0-16.0) L 10/14/19 09:44 Hct 35.1 % (36.0-47.0) L 10/14/19 09:44 MCV 69.1 fL (78.0-98.0) L 10/14/19 09:44 Plt Count 259 thou/uL (130-400) 10/14/19 09:44 Neutrophils % 76.3 % (42.0-75.0) H 10/14/19 09:44 Band Neuts % (Manual) 18 % (5-11) H 10/14/19 09:44 Sodium 136 mmol/L (136-145) 10/14/19 09:44 Potassium 4.6 mmol/L (3.5-5.1) 10/14/19 09:44 Chloride 103 mmol/L (98-107) 10/14/19 09:44 Carbon Dioxide 18 mmol/L (23-31) L 10/14/19 09:44 BUN 16 mg/dL (9.8-20.1) 10/14/19 09:44 Creatinine 0.79 mg/dL (0.6-1.1) 10/14/19 09:44 Glucose 86 mg/dL (83-110) 10/14/19 09:44 Lactic Acid 1.8 mmol/L (0.5-2.2) 10/14/19 10:34 Calcium 8.8 mg/dL (7.8-10.44) 10/14/19 09:44 Total Bilirubin 0.4 mg/dL (0.2-1.2) 10/14/19 09:44 AST 20 U/L (5-34) 10/14/19 09:44 ALT 10 U/L (8-55) 10/14/19 09:44 Alkaline Phosphatase 59 U/L (40-110) 10/14/19 09:44 Creatine Kinase 70 U/L (29-168) 10/14/19 09:44 CK-MB (CK-2) 1.2 ng/mL (0-6.6) 10/14/19 09:44 Troponin I 0.076 ng/mL (< 0.028) H 10/14/19 14:07 Serum Total Protein 7.0 g/dL (6.0-8.3) 10/14/19 09:44 Albumin 3.7 g/dL (3.4-4.8) 10/14/19 09:44 Lipase 30 U/L (8-78) 10/14/19 09:44 - EKG Interpretation EKG: Irregularly irregular, atrial fibrillation with rapid ventricular response - Radiology Interpretation Chest x-ray Status: report reviewed by mo Hospitalist H&P A/P - Problem (1) Atrial fibrillation with rapid ventricular response Code(s): I48.91 - UNSPECIFIED ATRIAL FIBRILLATION Status: Acute (2) Community acquired pneumonia Code(s): J18.9 - PNEUMONIA, UNSPECIFIED ORGANISM Status: Acute (3) HTN (hypertension) Code(s): I10 - ESSENTIAL (PRIMARY) HYPERTENSION Status: Acute (4) Microcytic anemia Code(s): D50.9 - IRON DEFICIENCY ANEMIA, UNSPECIFIED Status: Chronic (5) Elevated troponin Code(s): R79.89 - OTHER SPECIFIED ABNORMAL FINDINGS OF BLOOD CHEMISTRY Status : Acute Assessment and Plan: likely due to demnand ischemia - Plan Plan: Admit to [facility] for management of atrial fibrillation with rapid ventricular response/pneumonia. Continue diltiazem drip, will consult her narrow fabric loom fixer as she was supposed to see him tomorrow Continue empiric ceftriaxone and azithromycin, I believe this may be an acute bronchitis with possible early pneumonia as demonstrated on CXR, will repeat a chest x-ray and a pro-calcitonin in the morning, can de-escalate antibiotics from there if negative studies Obtain blood and sputum cultures We will continue home medications for chronic conditions once reconciled Will obtain iron panel and peripheral smear for workup of microcytic anemia DVT prophylaxis: Lovenox CODE STATUS: Full resuscitation ACP: Nephew is the surrogate decision maker Disposition: Continue to treat. Coordinate with cardiology.
[2019-10-14 17:47] LABS: Troponin I 0.038 ng/mL (< 0.028)
[2019-10-14] MEDS ORDERED: Metoprolol Tartrate 5 MG/5 ML VIAL ONE (18:16)
[2019-10-14] MEDS ORDERED: Enoxaparin Sodium 60 MG/0.6 ML SYRINGE SC SCH (21:00)
[2019-10-14] MEDS: Metoprolol Tartrate 25 MG TAB PO SCH (21:03)
[2019-10-14] MEDS: clonazePAM 0.5 MG TABLET PO PRN (21:59)
[2019-10-14] MEDS: Diltiazem 125 MG in Sodium Chloride 0.9% 100 ML IVPB SCH (21:59)
--- NOTE | 2019-10-15 01:13 | CON ---
DATE OF CONSULTATION: 10/14/2019 REASON FOR CONSULTATION: Atrial fibrillation and atrial flutter both with rapid rate. HISTORY OF PRESENT ILLNESS: Ms. Juarez was brought to the hospital today due to weakness and fatigue, lack of energy. She said she really had been feeling well for several days. Once or twice during that time, she felt like she might faint. Her friend insisted she be brought to the emergency room. Therefore, she was brought here. She was found to be in atrial fibrillation with a rapid ventricular response. She did not have chest pain or pressure. The patient does have a history of atrial fibrillation, as well as atrial flutter. MEDICATIONS: 1. Eliquis 2.5 mg twice a day, which she is taking. 2. Multaq 400 mg twice a day. 3. Mucinex. 4. Iron. 5. Breo Ellipta. PAST MEDICAL HISTORY: 1. Hypertension. 2. Paroxysmal atrial fibrillation. 3. Paroxysmal flutter. 4. Nonrheumatic mitral regurgitation. The patient past history as mentioned above. SOCIAL HISTORY: No alcohol or tobacco. She is recently in the last couple of years. FAMILY HISTORY: Noncontributory. REVIEW OF SYSTEMS: CONSTITUTIONAL: Positive for weakness and fatigue. VISION: No changes. HEARING: No changes. PULMONARY: No cough or wheezing. GASTROINTESTINAL: No nausea, vomiting, or diarrhea. SKIN: No rashes. NEUROLOGIC: No unilateral weakness or numbness. PSYCHIATRIC: No unusual depression or anxiety. PHYSICAL EXAMINATION: GENERAL: This is a very pleasant elderly woman, 5 feet 5 inches tall, 102 pounds. HEENT: Eyes, sclerae nonicteric. Mouth, mucous membranes moist. NECK: Supple. No lymphadenopathy. LUNGS: Clear. No wheezing. CARDIAC: She is irregular. Normal S1, normal S2. There is no murmur, rub, or gallop. ABDOMEN: Soft and nontender. No hepatosplenomegaly. EXTREMITIES: Warm and dry. No clubbing. No cyanosis. There is no edema. DIAGNOSTIC STUDIES: EKG reveals some atrial flutter with 2-1 block after some intravenous metoprolol. Her heart rate came down to the 70s, with a higher degree block. She also has atrial fibrillation with a rapid rate. ASSESSMENT: 1. Atrial fibrillation with rapid rate. 2. Atrial flutter with rapid rate. PLAN: 1. We will reduce Cardizem to 10 mg an hour. 2. Add some beta pauline. 3. Consideration for atrial flutter ablation. Will contact Electrophysiology. Job ID: [id number]
[2019-10-15 03:50] LABS: Band 6 % (5-11); Hemoglobin 8.4 g/dL (12.0-16.0); Hypochromia SLIGHT = 6-15 cells (100X) (0-5/hpf); Lymphocytes 26 % (21-51); MDiff Complete? YES; Mean Corpuscular HGB CONC 31.3 g/dL (32.0-36.0); Mean Corpuscular Hemoglobin 21.9 pg (27.0-31.0); Mean Corpuscular Volume 69.9 fL (78.0-98.0); Mean Platelet Volume 9.1 fL (7.4-10.4); Microcytosis SLIGHT = 6-15 cells (100X) (0-5/hpf); Monocytes 4 % (0-10); Neutrophil 64 % (42-75); Platelet Count 251 thou/uL (130-400); Platelet Morphology Comment Appears Adequate; RBC Distribution Width 15.2 % (11.5-14.5); Red Blood Cell (RBC) Count 3.84 mill/uL (4.20-5.40); White Blood Cell (WBC) Count 6.6 thou/uL (4.8-10.8)
[2019-10-15 03:54] LABS: ALT (SGPT) Less than 7 U/L (8-55); AST (SGOT) 17 U/L (5-34); Alkaline Phosphatase 47 U/L (40-110); Anion Gap 10 mmol/L (10-20); BUN (Urea Nitrogen) 16 mg/dL (9.8-20.1); Bilirubin, Total 0.3 mg/dL (0.2-1.2); Calc. Creatinine Clearance 43 mL/min (70-130); Calcium 8.2 mg/dL (7.8-10.44); Carbon Dioxide 24 mmol/L (23-31); Chloride 103 mmol/L (98-107); Estimated GFR-MDRD 76; Globulin 2.9 g/dL (2.4-3.5); Glucose 88 mg/dL (83-110); Iron 16 ug/dL (50-170); Iron Binding Capacity, Total 326 mcg/dL (265-497); Potassium 4.2 mmol/L (3.5-5.1); Protein, Total 5.9 g/dL (6.0-8.3); Sodium 133 mmol/L (136-145)
[2019-10-15 04:00] LABS: Iron 17 ug/dL (50-170); Iron Binding Capacity, Total 323 mcg/dL (265-497)
[2019-10-15] MEDS ORDERED: Enoxaparin Sodium 40 MG/0.4 ML SYRINGE SC SCH (09:00)
--- NOTE | 2019-10-15 09:26 | PRG ---
DATE OF SERVICE: 10/15/2019 SUBJECTIVE: Ms. Juarez is in atrial fibrillation this morning, rate about 110. OBJECTIVE: VITAL SIGNS: Her blood pressure is 105/55. Her temperature is 99.2. LUNGS: Noted for some rhonchi. CARDIAC: Irregularly irregular. ABDOMEN: Soft, nontender. EXTREMITIES: There is no edema. PERTINENT LABORATORY DATA: The hemoglobin is dropped to 8.4. Sodium is 133. Iron level is low at 17 with a ferritin of 29.9, indicating iron deficiency. ASSESSMENT: 1. Atrial fibrillation, persistent. 2. The patient has also been found to have influenza on a nasal swab and possibly left lower lobe pneumonia. PLAN: 1. Rate control. 2. Anticoagulation has been reduced by the hospitalist in view of the drop of blood count. 3. May need transesophageal echo and cardioversion prior to discharge. Job ID: [id number] MTDD
[2019-10-15 09:49] LABS: #Monocytes 0.3 thou/uL (0.11-0.59); #Neutrophils 4.4 thou/uL (1.40-6.50); %Basophils 0.3 % (0.0-1.0); %Monocytes 5.7 % (0.0-10.0); Hemoglobin 8.3 g/dL (12.0-16.0); Mean Corpuscular HGB CONC 30.6 g/dL (32.0-36.0); Mean Corpuscular Hemoglobin 21.1 pg (27.0-31.0); Mean Platelet Volume 8.7 fL (7.4-10.4); Platelet Count 241 thou/uL (130-400); RBC Distribution Width 15.1 % (11.5-14.5); Red Blood Cell (RBC) Count 3.94 mill/uL (4.20-5.40); White Blood Cell (WBC) Count 5.7 thou/uL (4.8-10.8)
[2019-10-15] MEDS: Dronedarone HCl 400 MG TAB PO SCH ×2 (09:53→16:42)
[2019-10-15] MEDS: Metoprolol Tartrate 25 MG TAB PO SCH ×2 (09:53→20:25)
[2019-10-15] MEDS: cefTRIAXone\\ROCEPHIN 1 GM in Sodium Chloride 0.9% 100 ML IVPB SCH (09:54)
[2019-10-15] MEDS: Diltiazem 125 MG in Sodium Chloride 0.9% 100 ML IVPB SCH (10:10)
[2019-10-15] MEDS: Iron, Sodium Ferric Gluconate 250 MG in Sodium Chloride 0.9% 100 ML IVPB SCH ×2 (10:11→20:24)
--- NOTE | 2019-10-15 10:13 | RAD ---
Portable frontal chest radiograph: 10/15/2019 COMPARISON: 10/14/2019 HISTORY: Weakness FINDINGS: Hazy asymmetric increased density is noted within the left lung base medially and along the lateral aspect of the left heart border. There is no pneumothorax. There is increased linear interstitial density with pulmonary hyperinflation. No focal consolidation or alveolar edema. There is atherosclerotic calcification of the aortic arch. IMPRESSION: Hazy increased density in the left base which may signify a left basilar infiltrate. Earl mmend PA and lateral imaging of the chest.
[2019-10-15] MEDS ORDERED: Azithromycin 500 MG in Sodium Chloride 0.9% 250 ML 250 ML IVPB SCH (11:00)
--- NOTE | 2019-10-15 13:37 | PDOC.HOSPP ---
- Subjective Encounter Date: 10/15/19 Encounter Time: 11:45 Subjective: pt is having lunch, family at bedside. still on cardizem at 10. pt has no hx of PE/DVT or PUD. prob cardioversion in the next few days. - Objective Vital Signs & Weight: Vital Signs (12 hours) Temp 10/15/19 11:38 98.2 F 10/15/19 07:11 99.2 F 10/15/19 03:38 98.6 F Weight Admit Weight 102 lb Weight 102 lb Most Recent Monitor Data Heart Rate from ECG 88 NIBP 105/55 NIBP BP-Mean 71 Respiration from ECG 25 SpO2 92 I&O: 10/14/19 10/15/19 10/16/19 06:59 06:59 06:59 Intake Total 470 Output Total 100 Balance 370 Result Diagrams: 10/15/19 09:40 10/15/19 03:16 Hospitalist ROS - Medication Medications: Active Medications Generic Name Dose Route Start Last Admin Trade Name Freq PRN Reason Stop Dose Admin Clonazepam 0.5 mg 10/14/19 21:48 10/14/19 21:59 Klonopin PO 0.5 mg HS PRN Administration Anxiety/Insomnia Dronedarone 400 mg 10/15/19 08:00 10/15/19 09:53 Multaq PO 400 mg BID-WM SANDI Administration Enoxaparin Sodium 40 mg 10/15/19 09:00 10/15/19 09:53 Lovenox SC 40 mg 0900 SANDI Administration Ceftriaxone Sodium 1 gm/ 100 mls @ 200 mls/hr 10/15/19 10:00 10/15/19 09:54 Sodium Chloride IVPB 100 mls Q24HR SANDI Administration Diltiazem HCl 125 mg/ Sodium 125 mls @ 10 mls/hr 10/14/19 19:17 10/15/19 10: 10 Chloride IVPB 125 mls INF SANDI Administration 10 MG/HR Ferric Sodium Gluconate 120 mls @ 60 mls/hr 10/15/19 09:00 10/15/19 10:11 Complex 250 mg/ Sodium IVPB 10/15/19 21:01 120 mls Chloride Q12HR SANDI Administration Metoprolol Tartrate 25 mg 10/14/19 21:00 10/15/19 09:53 Lopressor PO 25 mg BID SANDI Administration - Exam General Appearance: NAD, awake alert Eye: PERRL, anicteric sclera ENT: normocephalic atraumatic Neck: supple, no thyromegaly Heart: irregular Respiratory: CTAB, normal chest expansion Gastrointestinal: non-distended, normal bowel sounds, no guarding Neurological: cranial nerve grossly intact, no focal deficits Hosp A/P - Plan Afib w.. RVR -- could be triggered by the flu? -on cadizem gtt -BB added and wean off the gtt -TSH nl -plan for PARMINDER/cardioversion -multaq and lopressor CAP and coexisting influenza A +ve -CTX and zithro, passed the time scale for tamiflu? -procalci---insig.. Abnormal troponin NSTEMI d/t demand ischemia, type II --no ischemic workup for now unless cardiology feels otherwise. Microcytic anemia stable Acute blood loss anemia with hgb drop from 10.7 to 8.4 -no etiology -dilutional? -threshold to transfuse <7. DVT ppx - lovenox
[2019-10-15] MEDS ORDERED: predniSONE 20 MG TAB PO SCH (14:00)
[2019-10-15] MEDS ORDERED: Oseltamivir 75 MG CAP PO SCH (14:00)
--- NOTE | 2019-10-15 16:42 | CON ---
DATE OF CONSULTATION: 10/15/2019 SERVICE: Pulmonary Medicine. REASON FOR CONSULTATION: Respiratory failure. HISTORY OF PRESENT ILLNESS: The patient is an 84-year-old white female with past medical history significant for diagnosis of chronic asthmatic bronchitis. Two days prior to admission, she ended up having increasing respiratory difficulties, overwhelming fatigue, intermittent fevers, congestion, and cough. She was bringing up yellow phlegm. Ultimately, because of her listlessness, she was brought to the emergency department. At that point, she was discovered to be in atrial fibrillation with RVR. She is also flu positive. She was wheezing and coughing. She was placed in the hospital and tucked in the [facility] for rate control medications. Her heart rate has been controlled adequately, but she continues to have viral prodrome. She denies any current fevers, chills, nausea, or vomiting. Otherwise, she is in her usual state of health and has no specific complaints currently. PAST MEDICAL HISTORY: 1. Atrial fibrillation, paroxysmal. 2. Hypertension. 3. Asthmatic bronchitis. 4. Bronchiectasis. 5. Anxiety disorder/depression. PAST SURGICAL HISTORY: None. FAMILY HISTORY: Noncontributory. SOCIAL HISTORY: Negative for alcohol, tobacco, or illicit drug use. She has no exposure to chemicals, dust, asbestos, or tuberculosis. ALLERGIES: BUSPIRONE. MEDICATIONS: List of her inpatient medications was reviewed. No specific updates were made at this time. REVIEW OF SYSTEMS: General; head, ears, eyes, nose, throat; cardiovascular; respiratory; GI; ; musculoskeletal; neurologic; and skin are negative except as mentioned in the HPI. PHYSICAL EXAMINATION: VITAL SIGNS: Afebrile with a T-max of 99.2, pulse 88, blood pressure 105/55, respirations 25, saturation 98% on room air. GENERAL: The patient is awake and alert, in no apparent distress. LUNGS: Good air entry bilaterally. There is a slightly prolonged expiratory phase. I hear minimal wheezing on inspiration. That being said, rhonchi predominate. There is no wheezing on tidal respirations with exhalation. No crackles are appreciated. HEART: Normal rate. Irregular. ABDOMEN: Soft, nontender, and nondistended. Bowel sounds are positive. MUSCULOSKELETAL: No cyanosis or clubbing. There is no pitting throughout. NEUROLOGIC: Grossly nonfocal. LABORATORY DATA: WBC 5.7, hemoglobin 8.3 and stable, platelets 241,000. Basic metabolic profile is unremarkable except for a sodium of 133, which is gently downtrending. Iron level is 16, TIBC is 326 which falls within the normal limits. Iron stores are quite low. Liver function studies are unremarkable. Procalcitonin and TSH are both quite low. Troponin is downtrending at 0.038. Blood cultures x2 are negative. Influenza A is positive; B is negative. ASSESSMENT: 1. Acute hypoxic respiratory failure. 2. Asthma with acute exacerbation, secondary to influenza. 3. Influenza A. 4. Atrial fibrillation with rapid ventricular response, currently rate controlled. DISCUSSION AND PLAN: The patient is doing fine from respiratory standpoint. We will continue our nebulized medications, steroids, and antibiotics directed at lung-related issues. A 5-day course of Tamiflu will be initiated. We are probably outside of the window, where this would be helpful unfortunately. Currently, she is under good rate control with calcium channel pauline. Pulmonary will continue to follow. Dr. Hill has a well-established relationship with Ms. Juarez and will assume care in the morning. 70 minutes have been devoted to this patient in various activities. I personally reviewed all imaging studies and laboratory data noted within this document. For fifty percent of this time, I was interacting with the patient at the bedside or coordinating care with the care team. For the remainder of the time I was immediately available to the patient in the hospital unit. Job ID: [id number] MTDD
[2019-10-15] MEDS: Apixaban 2.5 MG TAB PO SCH (20:25)
[2019-10-15] MEDS: Oseltamivir 75 MG CAP PO SCH (20:25)
[2019-10-16 04:55] LABS: Band 5 % (5-11); Lymphocytes 12 % (21-51); MDiff Complete? YES; Mean Corpuscular HGB CONC 29.6 g/dL (32.0-36.0); Mean Corpuscular Hemoglobin 21.1 pg (27.0-31.0); Mean Corpuscular Volume 71.2 fL (78.0-98.0); Mean Platelet Volume 9.1 fL (7.4-10.4); Neutrophil 83 % (42-75); Platelet Count 267 thou/uL (130-400); Platelet Morphology Comment Appears Adequate; RBC Distribution Width 15.3 % (11.5-14.5); Red Blood Cell (RBC) Count 4.73 mill/uL (4.20-5.40); White Blood Cell (WBC) Count 6.4 thou/uL (4.8-10.8)
[2019-10-16] MEDS: Diltiazem 125 MG in Sodium Chloride 0.9% 100 ML IVPB SCH (05:37)
[2019-10-16] MEDS ORDERED: Fentanyl 100 MCG/2 ML VIAL ONE (07:14)
[2019-10-16] MEDS ORDERED: predniSONE 20 MG TAB PO SCH (08:00)
--- NOTE | 2019-10-16 08:19 | PRG ---
DATE OF SERVICE: 10/16/2019 SUBJECTIVE: Ms. Juarez feels weak and fatigued. There is no chest pain. OBJECTIVE: VITAL SIGNS: Her blood pressure is 99/64, pulse is 100 and it is irregularly irregular. LUNGS: Showed some expiratory wheezing and rhonchi. CARDIAC: Irregularly irregular. ABDOMEN: Soft, nontender. EXTREMITIES: There is no edema. PERTINENT LABORATORY DATA: Hemoglobin is up to 10, hematocrit 33.7, makes me wonder if perhaps the hemoglobins yesterday were not accurate as she did not receive any blood. Her potassium is 4.2, creatinine is 0.7. ASSESSMENT: 1. Paroxysmal atrial fibrillation, now persistent. 2. Influenza. 3. She has bronchitis and possibly pneumonia. PLAN: 1. Rate control for now with anticoagulation. 2. Once her pulmonary status is improved, if she is still in fibrillation transesophageal echo and cardioversion, I will be off the next few days, Dr. Cao will be seeing the patient. Job ID: [id number]
[2019-10-16] MEDS: Dronedarone HCl 400 MG TAB PO SCH ×2 (09:33→17:18)
[2019-10-16] MEDS: Oseltamivir 75 MG CAP PO SCH ×2 (09:34→20:37)
[2019-10-16] MEDS: Metoprolol Tartrate 25 MG TAB PO SCH ×2 (09:34→20:56)
[2019-10-16] MEDS: Apixaban 2.5 MG TAB PO SCH ×2 (09:34→20:37)
[2019-10-16] MEDS: cefTRIAXone\\ROCEPHIN 1 GM in Sodium Chloride 0.9% 100 ML IVPB SCH (10:46)
--- NOTE | 2019-10-16 11:16 | PRG ---
DATE OF SERVICE: 10/16/2019 SUBJECTIVE: Ms. Juarez seems to be doing better. Still on low-dose diltiazem, which will be stopped this morning. She denies palpitations. Mild generalized malaise viral infection, minor coughing. OBJECTIVE: VITAL SIGNS: Blood pressure is 130/65, heart rate 86, respirations 20, and temperature 96.6 degrees Fahrenheit, oxygen saturations 100%. GENERAL: This is an alert and oriented elderly woman, in no apparent distress. NECK: Supple. Jugular veins not distended. CHEST: Coarse with few wheezing and rhonchi. HEART: Sounds are irregularly irregular. S1 and S2 are variable. No murmur or gallop. ABDOMEN: Benign. Bowel sounds positive. EXTREMITIES: Lower extremities without edema, clubbing, or cyanosis. DATABASE: Telemetry strips reviewed, revealing atrial fibrillation with a better ventricular rate control yesterday. LABORATORY DATA: White count is 6.4, hemoglobin 10, platelet count is 267 this morning. Electrolytes in good range. Troponin-I was 0.038 on the . ASSESSMENT AND PLAN: Ms. Juarez is a pleasant 84-year-old woman with history of paroxysmal atrial fibrillation, previously well suppressed with the Multaq. Now, she is persisting, likely exacerbated by her acute influenza episode. Rates were initially rapid, now better with IV diltiazem. She is continued on Multaq and p.o. diltiazem will be added to her regimen today. As I discussed with Dr. Joseph at this point, has a coarse atrial fibrillation/flutter, likely CTI ablation is of limited benefit. On the other hand, I am expecting her to have better chance to maintain sinus rhythm. We will continue Multaq after resolution of her acute viral illness. Cardioversion inpatient or outpatient is reasonable if she sustains after the viral illness resolve. Continue Eliquis therapy. At this point, I would sign off. I have to see this lady back as an outpatient if felt necessary for further EP management. Thank you for allowing me to participate in care of this patient. Job ID: [id number]
--- NOTE | 2019-10-16 11:20 | PRG ---
DATE OF SERVICE: 10/16/2019 Sadie Juarez has been sick for about 10 days. She tested positive for flu. She most likely is out of her contagious stage. She is afebrile. Heart rate is 102, blood pressure 130/65. She is still wheezing. Heart regular rhythm. Abdomen soft. IMPRESSION: Asthmatic bronchitis, likely triggered by influenza. PLAN: Continue nebulizer treatments. I would continue to treat her with IV steroids. She is cleared up and with her family and answered all their questions. Her deconditioning is big factor and need to be hospitalized. Likely in need of a skilled facility after this hospitalization. Job ID: [id number]
--- NOTE | 2019-10-16 12:46 | PQF ---
Date: 10-16-19 ATTN: DR. LIANG STEVE Please exercise your independent, professional judgment in responding to the clarification form. Clinical indicators are provided on the bottom of this form for your review Please check appropriate box(s): [ x ] Protein Calorie Malnutrition: [ ] Mild [ ] Moderate [ ] Severe [ ] Other Malnutrition (please specify) __ [ ] Underweight without malnutrition [ ] Other diagnosis [ ] Unable to determine In addition, please specify: Present on Admission (POA): [ ] Yes [ ] No [ ] Unable to determine CLINICAL INDICATORS - SIGNS / SYMPTOMS / LABS / RESULTS AND LOCATION IN MR: BMI: 16.9 NUTRITION CONSULT 10-15-19: BMI (16.9) MST Score: 2 (2-13 lb weight loss, poor appetite), Patient reports a poor appetite over the last week 2/2 to coughing, observed only a few bites of breakfast tray taken during visit. She admits that prior to getting sick her diet was not good. Patient states that she weighed 107 lbs a week ago. 4.7% weightloss in one week per patient report, moderate to severe muscle wasting observed suggestive of malnutrition, patient report of limited intake and no longer cooking at home since passed, suspect inadequate intake meeting <75% of estimated needs suggestive of severe malnutrition RISK FACTORS / RESULTS AND LOCATION IN MR: MACHINIST/MACHINE BUILDER CONSULT 10-15-19: H/O afib, HTN, aflutter, mitral regurgitation; Pressure Ulcer (sacrococcygeal) -stage I, small appetite, PNA, 's TREATMENT / RESULTS AND LOCATION IN MR: MACHINIST/MACHINE BUILDER CONSULT 10-15-19: 1. Recommend liberalized regular diet type, leaving off Heart Healthy /Low Sodium diet restrictions, to promote PO intake. 2. Recommend Ensure Enlive BID. 3. Consider an appetite stimulant Moderate Malnutrition (in acute illness) Energy Intake: <75% of estimated energy requirement for > 7 days Weight Loss: 1-2%/1 week; 5%/ 1 month; 7.5%/3 months Other: mild body fat loss; mild muscle mass loss; mild fluid accumulation; Severe Malnutrition (in acute illness) Energy Intake: < 50% of estimated energy requirement for > 5 days Weight Loss: >1-2%/1 week; >5%/1 month; >7.5%/3 months Other: moderate body fat loss; moderate muscle mass loss; moderate- severe fluid accumulation; measurably reduced retail assistant manager strength Moderate Malnutrition (in chronic illness) Energy Intake: <75% of estimated energy requirement for >1 month Weight Loss: 5%/1 month; 7.5%/3 months; 10%/6 months; 20%/1 year Other: mild body fat loss; mild muscle mass loss; mild fluid accumulation Severe Malnutrition (in chronic illness) Energy Intake: <75% of estimated energy requirement for >1 month Weight Loss: >5%/1 month; >7.5%/3 months; >10%/6 months; >20%/1 year Other: severe body fat loss; severe muscle mass loss; severe fluid accumulation ; measurably reduced retail assistant manager strength (This form is maintained as a part of the permanent medical record) 2014 [employer]. All Rights Reserved [email or web address] [email or web address] Office: [phone] HILDA
[2019-10-16] MEDS: methylPREDNISolone Sod Succ 40 MG VIAL IVP SCH ×3 (13:38→23:49)
--- NOTE | 2019-10-16 15:18 | PDOC.HOSPP ---
- Subjective Encounter Date: 10/16/19 Encounter Time: 12:20 Subjective: no acute events o/n. off the gtt, pulse is in 80s. doing well. - Objective Vital Signs & Weight: Vital Signs (12 hours) Temp Pulse Resp Pulse Ox 10/16/19 11:24 97.6 F 10/16/19 11:21 89 20 98 10/16/19 08:00 100 10/16/19 07:15 96.6 F L 10/16/19 03:20 97.4 F L Weight Admit Weight 102 lb Weight 102 lb Most Recent Monitor Data Heart Rate from ECG 83 NIBP 102/61 NIBP BP-Mean 74 Respiration from ECG 27 SpO2 95 I&O: 10/15/19 10/16/19 10/17/19 06:59 06:59 06:59 Intake Total 470 180 Output Total 100 Balance 370 180 Result Diagrams: 10/16/19 03:50 10/15/19 03:16 Hospitalist ROS - Medication Medications: Active Medications Generic Name Dose Route Start Last Admin Trade Name Freq PRN Reason Stop Dose Admin Apixaban 2.5 mg 10/15/19 21:00 10/16/19 09:34 Eliquis PO 2.5 mg BID SANDI Administration Clonazepam 0.5 mg 10/14/19 21:48 10/14/19 21:59 Klonopin PO 0.5 mg HS PRN Administration Anxiety/Insomnia Diltiazem HCl 120 mg 10/16/19 09:00 10/16/19 09:34 Cardizem Cd PO 120 mg DAILY SANDI Administration Dronedarone 400 mg 10/15/19 08:00 10/16/19 09:33 Multaq PO 400 mg BID-WM SANDI Administration Ceftriaxone Sodium 1 gm/ 100 mls @ 200 mls/hr 10/15/19 10:00 10/16/19 10:46 Sodium Chloride IVPB 100 mls Q24HR SANDI Administration Methylprednisolone Sodium Succinate 20 mg 10/16/19 12:00 10/16/19 13:38 Solu-Medrol IVP 20 mg Q6HR SANDI Administration Metoprolol Tartrate 25 mg 10/14/19 21:00 10/16/19 09:34 Lopressor PO 25 mg BID SANDI Administration Oseltamivir Phosphate 75 mg 10/15/19 21:00 10/16/19 09:34 Tamiflu PO 10/19/19 21:01 75 mg BID SANDI Administration Sodium Chloride 10 ml 10/16/19 09:00 10/16/19 09:35 Flush - Normal Saline IVF 10 ml Q12HR SANDI Administration - Exam General Appearance: NAD, awake alert Eye: PERRL ENT: normocephalic atraumatic Neck: supple, no JVD Heart: RRR, no rubs Gastrointestinal: normal bowel sounds Hosp A/P - Plan Afib w.. RVR -- could be triggered by the flu? -on cadizem gtt---------> weaned off. -TSH nl -plan for PARMINDER/cardioversion --------postponed for either later in pt or as outpt -multaq and lopressor 25bid and eliquis --cardizem 120 CAP and coexisting influenza A +ve -CTX and zithro, passed the time scale for tamiflu? -procalci---insig.. --lorena neg x 48hrs -----> to PO augmentin Abnormal troponin NSTEMI d/t demand ischemia, type II --no ischemic workup - Microcytic anemia Iron deficiency -needs outpt age appropr cscope, if not done in the past. stable Acute blood loss anemia with hgb drop from 10.7 to 8.4 -no etiology -dilutional? -threshold to transfuse <7. DVT ppx - lovenox EP s/o monitor for another 2 days. if stable, plan for dc after specialists clearance PT c/s in place.
[2019-10-16] MEDS: Amoxicillin/Potassium Clav 875 MG TAB PO SCH (20:36)
[2019-10-17] MEDS: clonazePAM 0.5 MG TABLET PO PRN ×2 (00:36→20:57)
[2019-10-17] MEDS: methylPREDNISolone Sod Succ 40 MG VIAL IVP SCH ×2 (05:49→13:12)
[2019-10-17] MEDS ORDERED: Clopidogrel Bisulfate 75 MG TAB ONE (10:05)
[2019-10-17] MEDS: Oseltamivir 75 MG CAP PO SCH ×2 (10:44→20:57)
[2019-10-17] MEDS: Metoprolol Tartrate 25 MG TAB PO SCH ×2 (10:44→20:57)
[2019-10-17] MEDS: Dronedarone HCl 400 MG TAB PO SCH ×2 (10:45→17:37)
[2019-10-17] MEDS: Amoxicillin/Potassium Clav 875 MG TAB PO SCH ×2 (10:45→20:57)
[2019-10-17] MEDS: Apixaban 2.5 MG TAB PO SCH ×2 (10:46→20:57)
--- NOTE | 2019-10-17 12:42 | PDOC.HOSPP ---
- Subjective Encounter Date: 10/17/19 Encounter Time: 11:45 Subjective: pt talked at length, while observing the monitor HR ranged from 99 to 120. she has no sxs at this time. - Objective Vital Signs & Weight: Vital Signs (12 hours) Temp Pulse Resp Pulse Ox 10/17/19 12:00 97.9 F 10/17/19 10:44 100 10/17/19 08:00 97.8 F 96 10/17/19 06:52 100 18 92 L 10/17/19 04:00 97.9 F Weight Admit Weight 102 lb Weight 102 lb Most Recent Monitor Data Heart Rate from ECG 101 NIBP 112/58 NIBP BP-Mean 76 Respiration from ECG 25 SpO2 97 I&O: 10/16/19 10/17/19 10/18/19 06:59 06:59 06:59 Intake Total 180 600 Balance 180 600 Result Diagrams: 10/16/19 03:50 10/15/19 03:16 Hospitalist ROS - Medication Medications: Active Medications Generic Name Dose Route Start Last Admin Trade Name Freq PRN Reason Stop Dose Admin Albuterol/Ipratropium 3 ml 10/16/19 11:54 10/17/19 06:52 Duoneb NEB 3 ml Q4H PRN Administration SOB &/or Wheezing Amoxicillin/Clavulanate Potassium 875 mg 10/16/19 21:00 10/17/19 10:45 Augmentin PO 875 mg Q12HR SANDI Administration Apixaban 2.5 mg 10/15/19 21:00 10/17/19 10:46 Eliquis PO 2.5 mg BID SANDI Administration Clonazepam 0.5 mg 10/14/19 21:48 10/17/19 00:36 Klonopin PO 0.5 mg HS PRN Administration Anxiety/Insomnia Diltiazem HCl 120 mg 10/16/19 09:00 10/17/19 10:44 Cardizem Cd PO 120 mg DAILY SANDI Administration Dronedarone 400 mg 10/15/19 08:00 10/17/19 10:45 Multaq PO 400 mg BID-WM SANDI Administration Methylprednisolone Sodium Succinate 20 mg 10/16/19 12:00 10/17/19 05:49 Solu-Medrol IVP 20 mg Q6HR SANDI Administration Metoprolol Tartrate 25 mg 10/14/19 21:00 10/17/19 10:44 Lopressor PO 25 mg BID SANDI Administration Oseltamivir Phosphate 75 mg 10/15/19 21:00 10/17/19 10:44 Tamiflu PO 10/19/19 21:01 75 mg BID SANDI Administration Sodium Chloride 10 ml 10/16/19 09:00 10/17/19 10:46 Flush - Normal Saline IVF 10 ml Q12HR SANDI Administration - Exam General Appearance: NAD, awake alert ENT: normocephalic atraumatic Neck: supple, symmetric Heart: irregular Respiratory: CTAB, normal chest expansion Gastrointestinal: soft, normal bowel sounds Extremities: no cyanosis Neurological: cranial nerve grossly intact, no focal deficits Hosp A/P - Plan Afib w.. RVR -- could be triggered by the flu? -on cadizem gtt---------> weaned off. -TSH nl -plan for PARMINDER/cardioversion --------postponed for either later in pt or as outpt -multaq and lopressor 25bid and eliquis --cardizem 120 CAP and coexisting influenza A +ve -CTX and zithro and tamiflu -procalci---insig.. --lorena neg x 48hrs -----> to PO augmentin Abnormal troponin NSTEMI d/t demand ischemia, type II --no ischemic workup - Microcytic anemia Iron deficiency -needs outpt age appropr cscope, if not done in the past. stable Acute blood loss anemia with hgb drop from 10.7 to 8.4 -no etiology -dilutional? -threshold to transfuse <7. DVT ppx - lovenox EP s/o monitor for another 2 days. if stable, plan for dc after specialists clearance PT c/s in place. -consideration for rehab.
[2019-10-17] MEDS ORDERED: Aspirin 325 mg Enteric Coated Tablet ONE (13:54)
--- NOTE | 2019-10-17 20:28 | PDOC.CPN ---
- Subjective Date: 10/17/19 Time: 20:26 Interval history: No new issues. Remains in afib. - Review of Systems General: denies: fever/chills, weight/appetite/sleep changes, night sweats, fatigue Respiratory: denies: cough, congestion, shortness of breath, exercise intolerance Cardiovascular: denies: chest pain, palpitation, edema, paroxysmal nocturnal dyspnea, orthopnea Gastrointestinal: denies: nausea, vomiting, diarrhea, constipation, abd pain, GI bleeding Musculoskeletal: denies: pain, tenderness, stiffness, swelling, arthritis/ arthralgias Neurological: denies: numbness, syncope, seizure, weakness - Objective Allergies/Adverse Reactions: Allergies Allergy/AdvReac Type Severity Reaction Status Date / Time buspirone Allergy Severe Verified 10/14/19 16:49 Visit Medications: Current Medications Acetaminophen (Tylenol) 650 mg PO Q4H PRN PRN Reason: Headache/Fever/Mild Pain (1-3) Albuterol/Ipratropium (Duoneb) 3 ml NEB Q4H PRN PRN Reason: SOB &/or Wheezing Last Admin: 10/17/19 15:08 Dose: 3 ml Albuterol/Ipratropium (Duoneb) 3 ml NEB [id number] [facility] Last Admin: 10/17/19 18:36 Dose: 3 ml Amoxicillin/Clavulanate Potassium (Augmentin) 875 mg PO Q12HR [facility] Last Admin: 10/17/19 10:45 Dose: 875 mg Apixaban (Eliquis) 2.5 mg PO BID [facility] Last Admin: 10/17/19 10:46 Dose: 2.5 mg Clonazepam (Klonopin) 0.5 mg PO HS PRN PRN Reason: Anxiety/Insomnia Last Admin: 10/17/19 00:36 Dose: 0.5 mg Diltiazem HCl (Cardizem Cd) 120 mg PO DAILY [facility] Last Admin: 10/17/19 10:44 Dose: 120 mg Dronedarone (Multaq) 400 mg PO BID-[facility] Last Admin: 10/17/19 17:37 Dose: 400 mg Metoprolol Tartrate (Lopressor) 25 mg PO BID [facility] Last Admin: 10/17/19 10:44 Dose: 25 mg Ondansetron HCl (Zofran) 4 mg IVP Q6H PRN PRN Reason: Nausea/Vomiting Oseltamivir Phosphate (Tamiflu) 75 mg PO BID [facility] Stop: 10/19/19 21:01 Last Admin: 10/17/19 10:44 Dose: 75 mg Prednisone (Prednisone) 40 mg PO DAILY [facility] Sodium Chloride (Flush - Normal Saline) 10 ml IVF Q12HR [facility] Last Admin: 10/17/19 10:46 Dose: 10 ml Sodium Chloride (Flush - Normal Saline) 10 ml IVF PRN PRN PRN Reason: Saline Flush Vital Signs & Weight: Vital Signs Temp Pulse Pulse Pulse Resp BP BP 10/17/19 19:31 97.6 F 10/17/19 18:36 92 16 10/17/19 16:00 97.6 F 10/17/19 15:08 104 H 26 H 10/17/19 12:18 103 H 111 H 107/66 112/58 L 10/17/19 12:00 97.9 F 10/17/19 10:44 100 Pulse Ox Pulse Ox Pulse Ox 10/17/19 19:31 10/17/19 18:36 96 10/17/19 16:00 10/17/19 15:08 92 L 10/17/19 12:18 97 98 10/17/19 12:00 10/17/19 10:44 Admit Weight 102 lb Weight 102 lb - Physical Exam General: alert & oriented x3 HEENT: mucus membranes moist Neck: supple neck Cardiac: irregularly regular Lungs: wheezes Neuro: grossly intact Abdomen: active bowel sounds Extremities: no edema Skin: clear Musculoskeletal: no pain - Labs Result Diagrams: 10/16/19 03:50 10/15/19 03:16 Troponin/CKMB CK-MB (CK-2) 1.2 ng/mL (0-6.6) 10/14/19 09:44 Troponin I 0.038 ng/mL (< 0.028) H 10/14/19 17:07 - Telemetry Supraventricular conduction: atrial fibrillation - Assessment/Plan Assessment/Plan: 1. Paroxysmal afib 2, Influenza A 3. Bronchitis/Pneumonia PLAN: - Continue full anticoagulation for stroke prophylaxis - Continue rate control - Consider PARMINDER Cardioversion once lung status more stable.
--- NOTE | 2019-10-17 21:46 | PRG ---
DATE OF SERVICE: 10/17/2019 SUBJECTIVE: Ms. Juarez says she is feeling better. OBJECTIVE: VITAL SIGNS: She is afebrile. Heart rate is 92, respiratory rate 16, oximetry is 96% on room air, blood pressure is 96/64. LUNGS: Remarkable for end-expiratory wheezes. HEART: Regular rhythm. ABDOMEN: Soft. IMPRESSION AND PLAN: 1. Asthma exacerbation, slowly improving. 2. Atrial fibrillation. 3. Weight loss since her . 4. Anemia. 5. Borderline hyponatremia. 6. Influenza, likely not contagious given her symptoms started over a week ago. 7. Bibasilar pneumonia versus mucous plugging with her asthma exacerbation. We will continue to follow. Job ID: [id number]
[2019-10-18] MEDS ORDERED: predniSONE 20 MG TAB PO SCH (09:00)
[2019-10-18] MEDS: Metoprolol Tartrate 25 MG TAB PO SCH ×2 (10:12→20:38)
[2019-10-18] MEDS: Dronedarone HCl 400 MG TAB PO SCH ×2 (10:13→18:23)
[2019-10-18] MEDS: Oseltamivir 75 MG CAP PO SCH ×2 (10:13→20:39)
[2019-10-18] MEDS: Amoxicillin/Potassium Clav 875 MG TAB PO SCH ×2 (10:14→20:38)
[2019-10-18] MEDS: Apixaban 2.5 MG TAB PO SCH ×2 (10:14→20:38)
--- NOTE | 2019-10-18 13:43 | PDOC.HOSPP ---
- Subjective Subjective: Follow up evaluation on bilateral pneumonia, flu positive, atrial fibrillation with rapid ventricular response. Asthma with acute exacerbation. Patient is diffusely wheezing. Patient states that breathing treatments have been helping and she wishes to receive them every four hours. Patient is profoundly week and recommended placement and rehabilitation facility when she is medically optimized. Patient states that she would like to go home if she is feeling better and she can recover her strength. - Objective Vital Signs & Weight: Vital Signs (12 hours) Temp Pulse Resp Pulse Ox 10/18/19 10:12 109 H 10/18/19 08:39 109 H 20 10/18/19 08:00 96 10/18/19 07:37 97.2 F L 10/18/19 03:48 97.7 F Weight Admit Weight 102 lb Weight 102 lb Most Recent Monitor Data Heart Rate from ECG 117 NIBP 117/60 NIBP BP-Mean 79 Respiration from ECG 18 SpO2 96 I&O: 10/17/19 10/18/19 10/19/19 06:59 06:59 06:59 Intake Total 600 1280 Balance 600 1280 Result Diagrams: 10/16/19 03:50 10/15/19 03:16 Radiology Reviewed by me: Yes Hospitalist ROS - Review of Systems All other systems reviewed; all pertinent +/- noted in HPI/Subj - Medication Medications: Active Medications Generic Name Dose Route Start Last Admin Trade Name Freq PRN Reason Stop Dose Admin Albuterol/Ipratropium 3 ml 10/16/19 11:54 10/17/19 15:08 Duoneb NEB 3 ml Q4H PRN Administration SOB &/or Wheezing Albuterol/Ipratropium 3 ml 10/17/19 19:00 10/18/19 10:19 Duoneb NEB Not Given [id number] SANDI Amoxicillin/Clavulanate Potassium 875 mg 10/16/19 21:00 10/18/19 10:14 Augmentin PO 875 mg Q12HR [facility] Administration Apixaban 2.5 mg 10/15/19 21:00 10/18/19 10:14 Eliquis PO 2.5 mg BID [facility] Administration Clonazepam 0.5 mg 10/14/19 21:48 10/17/19 20:57 Klonopin PO 0.5 mg HS PRN Administration Anxiety/Insomnia Diltiazem HCl 120 mg 10/16/19 09:00 10/18/19 10:12 Cardizem Cd PO 120 mg DAILY [facility] Administration Dronedarone 400 mg 10/15/19 08:00 10/18/19 10:13 Multaq PO 400 mg BID-WM [facility] Administration Metoprolol Tartrate 25 mg 10/14/19 21:00 10/18/19 10:12 Lopressor PO 25 mg BID [facility] Administration Oseltamivir Phosphate 75 mg 10/15/19 21:00 10/18/19 10:13 Tamiflu PO 10/19/19 21:01 75 mg BID [facility] Administration Prednisone 40 mg 10/18/19 09:00 10/18/19 10:13 Prednisone PO 40 mg DAILY [facility] Administration Sodium Chloride 10 ml 10/16/19 09:00 10/18/19 10:15 Flush - Normal Saline IVF 10 ml Q12HR [facility]I Administration - Exam General Appearance: NAD, awake alert Eye: anicteric sclera ENT: normocephalic atraumatic, moist mucosa Neck: supple, symmetric, no JVD, no thyromegaly Heart: no murmur, no gallops, no rubs, irregular Respiratory: no rales, normal chest expansion, no tachypnea, rhonchi, wheezes Gastrointestinal: soft, non-tender, no guarding, no rigidity Extremities: no edema Skin: no lesions, no rashes Neurological: cranial nerve grossly intact, no weakness Musculoskeletal: generalized weakness Psychiatric: normal behavior, A&O x 3 Hosp A/P (1) Anemia Code(s): D64.9 - ANEMIA, UNSPECIFIED Status: Acute (2) Atrial fibrillation with rapid ventricular response Code(s): I48.91 - UNSPECIFIED ATRIAL FIBRILLATION Status: Acute (3) Community acquired pneumonia Code(s): J18.9 - PNEUMONIA, UNSPECIFIED ORGANISM Status: Acute (4) Elevated troponin Code(s): R79.89 - OTHER SPECIFIED ABNORMAL FINDINGS OF BLOOD CHEMISTRY Status : Acute (5) HTN (hypertension) Code(s): I10 - ESSENTIAL (PRIMARY) HYPERTENSION Status: Acute (6) PNA (pneumonia) Code(s): J18.9 - PNEUMONIA, UNSPECIFIED ORGANISM Status: Acute Qualifiers: Laterality: unspecified laterality Lung location: unspecified part of lung (7) Tachycardia Code(s): R00.0 - TACHYCARDIA, UNSPECIFIED Status: Acute (8) Bronchiectasis Code(s): J47.9 - BRONCHIECTASIS, UNCOMPLICATED Status: Chronic (9) COPD (chronic obstructive pulmonary disease) Status: Chronic Qualifiers: Emphysema type: unspecified (10) Microcytic anemia Code(s): D50.9 - IRON DEFICIENCY ANEMIA, UNSPECIFIED Status: Chronic (11) Atrial flutter Code(s): I48.92 - UNSPECIFIED ATRIAL FLUTTER Status: Resolved - Plan Plan: intermediate medical care floor pulmonology consultation, recommendations appreciated cardiology consultation, recommendations appreciated IV antibiotics IV steroids breathing treatments scheduled and as needed rate control versus rhythm control per cardiology anticoagulation continue other home medications as able blood pressure control blood sugar control G.I. prophylaxis DVT prophylaxis
--- NOTE | 2019-10-18 18:13 | PRG ---
DATE OF SERVICE: 10/18/2019 SUBJECTIVE: Sadie Juarez said she feels a little bit better. She is not eating and drinking much. I have encouraged her to push fluids. She said she does not feel as well as she did yesterday and feels like she is wheezing more, so I will place her back on IV steroids. OBJECTIVE: LUNGS: She has distant breath sounds. HEART: Regular rhythm. ABDOMEN: Soft. Still in atrial fibrillation. She is on prophylactic dose Eliquis. IMPRESSION: 1. Status asthmaticus after influenza, slowly improving. 2. Weakness and deconditioning related to depression after the loss of her a long back. She never has bounced back to normal, and she has lost a significant amount of weight since the loss of Marcelino. We will continue to follow the other physicians caring for her. Job ID: [id number]
[2019-10-18] MEDS: methylPREDNISolone Sod Succ 40 MG VIAL IVP SCH ×2 (18:22→23:49)
--- NOTE | 2019-10-18 18:31 | PDOC.CPN ---
- Subjective Date: 10/18/19 Time: 11:00 Interval history: No new issues. Remains in afib, rate controlled. - Review of Systems General: denies: fever/chills, weight/appetite/sleep changes, night sweats, fatigue Respiratory: denies: cough, congestion, shortness of breath, exercise intolerance Cardiovascular: denies: chest pain, palpitation, edema, paroxysmal nocturnal dyspnea, orthopnea Gastrointestinal: denies: nausea, vomiting, diarrhea, constipation, abd pain, GI bleeding Musculoskeletal: denies: pain, tenderness, stiffness, swelling, arthritis/ arthralgias Neurological: denies: numbness, syncope, seizure, weakness - Objective Allergies/Adverse Reactions: Allergies Allergy/AdvReac Type Severity Reaction Status Date / Time buspirone Allergy Severe Verified 10/14/19 16:49 Visit Medications: Current Medications Acetaminophen (Tylenol) 650 mg PO Q4H PRN PRN Reason: Headache/Fever/Mild Pain (1-3) Albuterol/Ipratropium (Duoneb) 3 ml NEB Q4H PRN PRN Reason: SOB &/or Wheezing Last Admin: 10/17/19 15:08 Dose: 3 ml Albuterol/Ipratropium (Duoneb) 3 ml NEB [id number] [facility] Last Admin: 10/18/19 14:59 Dose: 3 ml Amoxicillin/Clavulanate Potassium (Augmentin) 875 mg PO Q12HR [facility] Last Admin: 10/18/19 10:14 Dose: 875 mg Apixaban (Eliquis) 2.5 mg PO BID [facility] Last Admin: 10/18/19 10:14 Dose: 2.5 mg Clonazepam (Klonopin) 0.5 mg PO HS PRN PRN Reason: Anxiety/Insomnia Last Admin: 10/17/19 20:57 Dose: 0.5 mg Diltiazem HCl (Cardizem Cd) 120 mg PO DAILY [facility] Last Admin: 10/18/19 10:12 Dose: 120 mg Dronedarone (Multaq) 400 mg PO BID-[facility] Last Admin: 10/18/19 18:23 Dose: 400 mg Methylprednisolone Sodium Succinate (Solu-Medrol) 20 mg IVP Q6HR [facility] Last Admin: 10/18/19 18:22 Dose: 20 mg Metoprolol Tartrate (Lopressor) 25 mg PO BID [facility] Last Admin: 10/18/19 10:12 Dose: 25 mg Ondansetron HCl (Zofran) 4 mg IVP Q6H PRN PRN Reason: Nausea/Vomiting Oseltamivir Phosphate (Tamiflu) 75 mg PO BID [facility] Stop: 10/19/19 21:01 Last Admin: 10/18/19 10:13 Dose: 75 mg Sodium Chloride (Flush - Normal Saline) 10 ml IVF Q12HR [facility] Last Admin: 10/18/19 10:15 Dose: 10 ml Sodium Chloride (Flush - Normal Saline) 10 ml IVF PRN PRN PRN Reason: Saline Flush Vital Signs & Weight: Vital Signs Temp Pulse Resp Pulse Ox 10/18/19 15:27 97.6 F 10/18/19 14:59 95 18 10/18/19 10:12 109 H 10/18/19 08:39 109 H 20 10/18/19 08:00 96 10/18/19 07:37 97.2 F L Admit Weight 102 lb Weight 102 lb - Physical Exam General: alert & oriented x3 HEENT: mucus membranes moist Neck: supple neck Cardiac: irregularly regular Lungs: normal breath sounds Neuro: grossly intact Abdomen: active bowel sounds Extremities: no edema Skin: clear Musculoskeletal: no pain - Labs Result Diagrams: 10/16/19 03:50 10/15/19 03:16 Troponin/CKMB CK-MB (CK-2) 1.2 ng/mL (0-6.6) 10/14/19 09:44 Troponin I 0.038 ng/mL (< 0.028) H 10/14/19 17:07 - Telemetry Supraventricular conduction: atrial fibrillation - Assessment/Plan Assessment/Plan: 1. Paroxysmal afib 2, Influenza A 3. Bronchitis/Pneumonia PLAN: - Continue full anticoagulation for stroke prophylaxis - Continue rate control - Consider PARMINDER Cardioversion once lung status more stable.
[2019-10-18] MEDS: clonazePAM 0.5 MG TABLET PO PRN (20:38)
[2019-10-19] MEDS: methylPREDNISolone Sod Succ 40 MG VIAL IVP SCH ×4 (05:41→23:43)
[2019-10-19] MEDS: Amoxicillin/Potassium Clav 875 MG TAB PO SCH ×2 (10:23→20:08)
[2019-10-19] MEDS: Dronedarone HCl 400 MG TAB PO SCH ×2 (10:23→17:04)
[2019-10-19] MEDS: Oseltamivir 75 MG CAP PO SCH ×2 (10:23→20:09)
[2019-10-19] MEDS: Metoprolol Tartrate 25 MG TAB PO SCH ×2 (10:23→20:08)
[2019-10-19] MEDS: Apixaban 2.5 MG TAB PO SCH ×2 (10:24→20:08)
--- NOTE | 2019-10-19 11:07 | PDOC.HOSPP ---
- Subjective Encounter Date: 10/19/19 Encounter Time: 11:00 Subjective: f/u for PNA, Influenza A on Tamiflu, Solumedrol and rate improved chronic A- fib. Still receiving breathing treatments and feels improved overall. - Objective Vital Signs & Weight: Vital Signs (12 hours) Temp Pulse Resp Pulse Ox 10/19/19 10:41 105 H 17 10/19/19 10:23 121 H 10/19/19 07:09 97.8 F 10/19/19 00:51 101 H 16 96 10/19/19 00:00 98.4 F Weight Admit Weight 102 lb Weight 104 lb 3 oz Most Recent Monitor Data Heart Rate from ECG 105 NIBP 114/62 NIBP BP-Mean 79 Respiration from ECG 17 SpO2 94 I&O: 10/18/19 10/19/19 10/20/19 06:59 06:59 06:59 Intake Total 1280 1010 Balance 1280 1010 Result Diagrams: 10/16/19 03:50 10/15/19 03:16 Additional Labs: Microbiology 10/15/19 19:40 Stool C. difficile GDH Antigen & Toxins - Final 10/14/19 21:11 Nasopharynx Influenza Types A,B Direct EIA - Final 11/15/18 09:10 Sputum Respiratory Culture - Preliminary 10/14/19 10:34 Venous blood - Right Arm Blood Culture - Preliminary NO GROWTH AT 48 HOURS 10/14/19 10:34 Venous blood - Left Arm Blood Culture - Preliminary NO GROWTH AT 48 HOURS Laboratory Tests 11/13/18 11/14/18 11/14/18 16:31 15:42 15:42 Hgb Iron 13 L TIBC 373 Transferrin 298 Ferritin Troponin I Vitamin B12 468 Folate 6.70 L Free T4 0.91 TSH 3rd Generation 4.8501 10/14/19 10/14/19 10/14/19 09:44 09:44 14:07 Hgb 10.7 L Iron TIBC Transferrin Ferritin Troponin I 0.056 H 0.076 H Vitamin B12 Folate Free T4 TSH 3rd Generation 10/14/19 10/15/19 10/15/19 17:07 03:16 03:16 Hgb Iron 16 L 17 L TIBC Transferrin Ferritin Troponin I 0.038 H Vitamin B12 Folate Free T4 TSH 3rd Generation 02/12/20 02/12/20 02/12/20 03:16 03:16 09:40 Hgb 8.4 L Iron TIBC Transferrin Ferritin 29.91 Troponin I Vitamin B12 Folate Free T4 TSH 3rd Generation 3.6248 10/15/19 09:40 Hgb 8.3 L Iron TIBC Transferrin Ferritin Troponin I Vitamin B12 Folate Free T4 TSH 3rd Generation Radiology Reviewed by me: Yes (Echo - EF 60-65%, mod-severe LAE) EKG Reviewed by me: Yes (Tele - A-fib in low 100's) Hospitalist ROS - Medication Medications: Active Medications Generic Name Dose Route Start Last Admin Trade Name Freq PRN Reason Stop Dose Admin Albuterol/Ipratropium 3 ml 10/16/19 11:54 10/19/19 00:51 Duoneb NEB 3 ml Q4H PRN Administration SOB &/or Wheezing Albuterol/Ipratropium 3 ml 10/17/19 19:00 10/19/19 10:41 Duoneb NEB 3 ml [id number] SANDI Administration Amoxicillin/Clavulanate Potassium 875 mg 10/16/19 21:00 10/19/19 10:23 Augmentin PO 875 mg Q12HR [facility]I Administration Apixaban 2.5 mg 10/15/19 21:00 10/19/19 10:24 Eliquis PO 2.5 mg BID [facility] Administration Clonazepam 0.5 mg 10/14/19 21:48 10/18/19 20:38 Klonopin PO 0.5 mg HS PRN Administration Anxiety/Insomnia Diltiazem HCl 120 mg 10/16/19 09:00 10/19/19 10:23 Cardizem Cd PO 120 mg DAILY [facility] Administration Dronedarone 400 mg 10/15/19 08:00 10/19/19 10:23 Multaq PO 400 mg BID-WM [facility]I Administration Methylprednisolone Sodium Succinate 20 mg 10/18/19 18:00 10/19/19 05:41 Solu-Medrol IVP 20 mg Q6HR [facility]I Administration Metoprolol Tartrate 25 mg 10/14/19 21:00 10/19/19 10:23 Lopressor PO 25 mg BID [facility]I Administration Oseltamivir Phosphate 75 mg 10/15/19 21:00 10/19/19 10:23 Tamiflu PO 10/19/19 21:01 75 mg BID [facility]I Administration Sodium Chloride 10 ml 10/16/19 09:00 10/19/19 10:28 Flush - Normal Saline IVF 10 ml Q12HR [facility]I Administration - Exam General Appearance: NAD Eye: PERRL, anicteric sclera ENT: normocephalic atraumatic, no oropharyngeal lesions Neck: supple, symmetric, no JVD, no thyromegaly Heart: no gallops, no rubs, normal peripheral pulses, irregular Respiratory - other findings: bilat wheezes, rhonchi Gastrointestinal: soft, non-tender, non-distended, normal bowel sounds, no palpable masses Extremities: no cyanosis, no clubbing, no edema Skin: normal turgor, no lesions Neurological: cranial nerve grossly intact, no new deficit Musculoskeletal: normal tone, generalized weakness Psychiatric: normal affect, A&O x 3 Hosp A/P (1) Influenza A Code(s): J10.1 - FLU DUE TO OTH IDENT INFLUENZA VIRUS W OTH RESP MANIFEST Status: Acute Plan: Continue Tamiflu, Resp precautions, Solumedrol (2) Atrial fibrillation with rapid ventricular response Code(s): I48.91 - UNSPECIFIED ATRIAL FIBRILLATION Status: Acute Plan: Rate variable, continue Diltiazem/Multaq/Eliquis, ? CV as outpt (3) Acute respiratory failure with hypoxia Code(s): J96.01 - ACUTE RESPIRATORY FAILURE WITH HYPOXIA Status: Acute Plan: Improved overall, continue Duonebs, Solumedrol, Augmentin (4) HTN (hypertension) Code(s): I10 - ESSENTIAL (PRIMARY) HYPERTENSION Status: Chronic Qualifiers: Hypertension type: essential hypertension Qualified Code(s): I10 - Essential (primary) hypertension Plan: Stable, continue Diltiazem - Plan continue antibiotics, PT/OT, social worker masters, respiratory therapy, out of bed/ ambulate, DVT proph w/SCDs Stable currently Continue Tamiflu Continue Solumedrol Resp precautions OOB with PT Add Robitussin DM Add FeSO4 325mg BID AM lab: H/H
[2019-10-19] MEDS: Guaifenesin DM 100-10/5 ML UDCUP PO SCH ×4 (13:49→23:43)
--- NOTE | 2019-10-19 16:25 | PDOC.CPN ---
- Subjective Date: 10/19/19 Time: 16:24 Interval history: She feels more SOB today with wheezing. - Review of Systems General: denies: fever/chills, weight/appetite/sleep changes, night sweats, fatigue Respiratory: reports: shortness of breath, exercise intolerance. denies: cough , congestion Cardiovascular: denies: chest pain, palpitation, edema, paroxysmal nocturnal dyspnea, orthopnea Gastrointestinal: denies: nausea, vomiting, diarrhea, constipation, abd pain, GI bleeding Musculoskeletal: denies: pain, tenderness, stiffness, swelling, arthritis/ arthralgias Neurological: denies: numbness, syncope, seizure, weakness - Objective Allergies/Adverse Reactions: Allergies Allergy/AdvReac Type Severity Reaction Status Date / Time buspirone Allergy Severe Verified 10/14/19 16:49 Visit Medications: Current Medications Acetaminophen (Tylenol) 650 mg PO Q4H PRN PRN Reason: Headache/Fever/Mild Pain (1-3) Albuterol/Ipratropium (Duoneb) 3 ml NEB Q4H PRN PRN Reason: SOB &/or Wheezing Last Admin: 10/19/19 00:51 Dose: 3 ml Albuterol/Ipratropium (Duoneb) 3 ml NEB [id number] [facility] Last Admin: 10/19/19 14:40 Dose: 3 ml Amoxicillin/Clavulanate Potassium (Augmentin) 875 mg PO Q12HR [facility] Last Admin: 10/19/19 10:23 Dose: 875 mg Apixaban (Eliquis) 2.5 mg PO BID [facility] Last Admin: 10/19/19 10:24 Dose: 2.5 mg Clonazepam (Klonopin) 0.5 mg PO HS PRN PRN Reason: Anxiety/Insomnia Last Admin: 10/18/19 20:38 Dose: 0.5 mg Diltiazem HCl (Cardizem Cd) 120 mg PO DAILY [facility] Last Admin: 10/19/19 10:23 Dose: 120 mg Dronedarone (Multaq) 400 mg PO BID-[facility] Last Admin: 10/19/19 10:23 Dose: 400 mg Ferrous Sulfate (Feosol) 325 mg PO BID-[facility] Guaifenesin/Dextromethorphan (Robitussin Dm) 15 ml PO Q4H [facility] Last Admin: 10/19/19 15:54 Dose: 15 ml Methylprednisolone Sodium Succinate (Solu-Medrol) 20 mg IVP Q6HR [facility] Last Admin: 10/19/19 15:55 Dose: 20 mg Metoprolol Tartrate (Lopressor) 25 mg PO BID [facility] Last Admin: 10/19/19 10:23 Dose: 25 mg Ondansetron HCl (Zofran) 4 mg IVP Q6H PRN PRN Reason: Nausea/Vomiting Oseltamivir Phosphate (Tamiflu) 75 mg PO BID [facility] Stop: 10/19/19 21:01 Last Admin: 10/19/19 10:23 Dose: 75 mg Sodium Chloride (Flush - Normal Saline) 10 ml IVF Q12HR [facility] Last Admin: 10/19/19 10:28 Dose: 10 ml Sodium Chloride (Flush - Normal Saline) 10 ml IVF PRN PRN PRN Reason: Saline Flush Vital Signs & Weight: Vital Signs Temp Pulse Resp Pulse Ox 10/19/19 16:03 98.4 F 10/19/19 14:40 91 16 10/19/19 11:09 96.8 F L 10/19/19 10:41 105 H 17 10/19/19 10:23 121 H 10/19/19 08:00 96 10/19/19 07:09 97.8 F Admit Weight 102 lb Weight 104 lb 3 oz - Physical Exam General: alert & oriented x3 HEENT: mucus membranes moist Neck: supple neck Cardiac: irregularly regular Lungs: wheezes, bibasilar rales Neuro: grossly intact Abdomen: active bowel sounds Extremities: no edema Skin: clear Musculoskeletal: no pain - Labs Result Diagrams: 10/16/19 03:50 10/15/19 03:16 Troponin/CKMB CK-MB (CK-2) 1.2 ng/mL (0-6.6) 10/14/19 09:44 Troponin I 0.038 ng/mL (< 0.028) H 10/14/19 17:07 - Telemetry Supraventricular conduction: atrial fibrillation - Assessment/Plan Assessment/Plan: 1. Paroxysmal afib 2, Influenza A 3. Bronchitis/Pneumonia PLAN: - Continue full anticoagulation for stroke prophylaxis - Continue rate control - Consider PARMINDER Cardioversion once lung status more stable. Currently not ready.
--- NOTE | 2019-10-19 17:03 | PRG ---
DATE OF SERVICE: 10/19/2019 SUBJECTIVE: Ms. Juarez is in no distress. She is still weak. She took eight steps today. I explained to her that she will end up in rehab if she does not get stronger. OBJECTIVE: VITAL SIGNS: She is afebrile. Heart rate is 91, respiratory rate 16, and blood pressure is 112/65. LUNGS: Clear. HEART: Regular rhythm. ABDOMEN: Soft. IMPRESSION: 1. Status asthmaticus. 2. Atrial fibrillation. PLAN: 1. Physical therapy, steroids, and nebulizer treatments. Further workup of atrial fibrillation per Cardiology. 2. Probable post influenza pneumonia. Clinically, she is slowly improving. Job ID: [id number]
[2019-10-19] MEDS: Ferrous Sulfate 325 MG TAB PO SCH (17:04)
[2019-10-19] MEDS: clonazePAM 0.5 MG TABLET PO PRN (22:34)
[2019-10-20] MEDS: Guaifenesin DM 100-10/5 ML UDCUP PO SCH ×7 (04:32→23:32)
[2019-10-20 04:33] LABS: Hemoglobin 8.2 g/dL (12.0-16.0); Platelet Count 325 thou/uL (130-400)
[2019-10-20] MEDS: methylPREDNISolone Sod Succ 40 MG VIAL IVP SCH ×4 (06:20→23:18)
[2019-10-20] MEDS: Apixaban 2.5 MG TAB PO SCH ×2 (09:32→20:48)
[2019-10-20] MEDS: Dronedarone HCl 400 MG TAB PO SCH ×2 (09:32→17:40)
[2019-10-20] MEDS: Metoprolol Tartrate 25 MG TAB PO SCH ×2 (09:32→20:48)
[2019-10-20] MEDS: Amoxicillin/Potassium Clav 875 MG TAB PO SCH ×2 (09:32→20:48)
[2019-10-20] MEDS: Ferrous Sulfate 325 MG TAB PO SCH ×2 (09:32→17:40)
--- NOTE | 2019-10-20 09:48 | PRG ---
DATE OF SERVICE: 10/20/2019 SUBJECTIVE: Ms. Juarez is breathing somewhat better. She has no complaints. She is less short of breath. No chest pain. OBJECTIVE: VITAL SIGNS: Her blood pressure is 115/68, pulse 110 and it is irregular up to 130, atrial fibrillation at times. LUNGS: Some wheezing, but better. CARDIAC: Irregularly irregular. ABDOMEN: Soft and nontender. EXTREMITIES: No edema. ASSESSMENT: 1. Atrial fibrillation with poorly controlled rate. 2. Atrial flutter, none recently. 3. Asthma. 4. Recent pneumonia. PLAN: Proceed with transesophageal echo and cardioversion tomorrow. Discussed risks including injury to the esophagus and mouth, need for pacemaker insertion. The patient understands and wished to proceed. Job ID: [id number]
[2019-10-20] MEDS: Diltiazem 125 MG in Sodium Chloride 0.9% 100 ML IVPB SCH ×2 (12:48→23:13)
--- NOTE | 2019-10-20 13:18 | CON ---
DATE OF CONSULTATION: 10/15/2019 REASON FOR CONSULTATION: Atrial arrhythmias. HISTORY OF PRESENT ILLNESS: Sadie Juarez is an 84-year-old female patient who was admitted to the hospital with dehydration and flu. She was noted to be in atrial fibrillation with rapid ventricular response. Looking at the monitor tracings, somewhat consistent with coarse atrial fibrillation, and others, atypical atrial flutter. She has been managed by Dr. Joseph for atrial arrhythmia utilizing Multaq and low-dose Eliquis. Today, the patient is relatively comfortable. She has not been eating or drinking very well and she feels extremely weak. She denies any chest discomfort, palpitations, presyncope, or syncope. PAST MEDICAL HISTORY: 1. Paroxysmal atrial fibrillation and atrial flutter. 2. Nonrheumatic mitral regurgitation. 3. Influenza. CURRENT MEDICATIONS: 1. Multaq 400 mg b.i.d. 2. Diltiazem drip. 3. Ceftriaxone intravenous. 4. Lovenox 40 mg subcu. 5. Lopressor 25 mg b.i.d. 6. Zofran 4 mg IV p.r.n. 7. Prednisone scheduled. 8. Tamiflu. FAMILY HISTORY: Negative for premature coronary artery disease or arrhythmias. SOCIAL HISTORY: The patient is and lives with her . She denies any use of alcohol or tobacco. REVIEW OF SYSTEMS: A 12-point review of systems was negative except what was mentioned in the history of present illness. PHYSICAL EXAMINATION: GENERAL: Patient is a frail-appearing female, in no apparent distress. VITAL SIGNS: Weight is 102 pounds. Blood pressure 121/62, pulse 77 to 82. HEENT: Head normocephalic. Pupils equal, round, and reactive to light and accommodation. NECK: Supple without jugular venous distention. RESPIRATORY: Breath sounds diminished throughout all lung kumar with no adventitious sounds noted. Respirations are even and unlabored. Equal bilateral excursion. CARDIOVASCULAR: Irregularly irregular. S1, S2 - no murmurs, rubs, or gallops. PMI nondisplaced. No thrills, lifts, heaves. ABDOMEN: Soft, nontender. Hepatojugular reflux negative. EXTREMITIES: No lower extremity edema noted. However, she was very weak in her lower extremities. NEUROLOGIC/PSYCHIATRIC: Alert and oriented x3. Normal affect. Cranial nerves 2-12 grossly intact. DIAGNOSTIC DATA: EKG demonstrated probable coarse atrial fibrillation versus atypical atrial flutter with rapid ventricular response. IMPRESSION: 1. History of paroxysmal atrial fibrillation and atrial flutter, probably persistent at this time in the setting of influenza and dehydration. The patient has been on Multaq for quite some time. 2. Thromboembolic risk factors of advanced age and female gender giving her CHADS/VASc score of 3. She was previously on Eliquis 2.5 mg p.o. b.i.d., which is appropriate for her age and stature. PLAN: After discussing the patient with Dr. Womack, we would recommend a heart rate control strategy. She is on intravenous Cardizem and it would be reasonable to go ahead and wean the dose gradually. She is also on metoprolol for rate control and Multaq actually provides good rate control. We recommend initiating Eliquis 2.5 mg p.o. b.i.d. for CVA prophylaxis. She looks like she is on DVT protocol of Lovenox. This could probably be discontinued once the Lovenox is started, but we will leave that up to Internal Medicine. If the patient does not spontaneously convert back to sinus mechanism, then it would be reasonable to consider electrical cardioversion once she is feeling better. She is minimally symptomatic of her arrhythmia right now, so she needs more time to get her strength back and get over her flu symptoms. She also needs to have adequate hydration before we consider any type of procedure. We would not recommend a cavotricuspid isthmus ablation at this time. As previously mentioned, her rhythm tracings are more consistent with coarse atrial fibrillation versus atypical atrial flutter, and the risk of such a procedure would outweigh the benefit at this time. We will follow the patient while she is in the hospital. We appreciate the opportunity to participate in this patient's care. This is Tati Campbell NP, dictating for Daniel Womack MD. Job ID: [id number]
--- NOTE | 2019-10-20 16:56 | EKG ---
Test Reason : HIGH HR Blood Pressure : / mmHG Vent. Rate : 134 BPM Atrial Rate : 133 BPM P-R Int : 000 ms QRS Dur : 088 ms QT Int : 300 ms P-R-T Axes : 000 -44 108 degrees QTc Int : 448 ms Atrial fibrillation with rapid ventricular response Left axis deviation Abnormal ECG Confirmed by USNNI WYNNE ([id number]) on 10/20/2019 4:55:52 PM Referred By: SERGE Confirmed By:SUNNI WYNNE
--- NOTE | 2019-10-20 17:19 | PDOC.HOSPP ---
- Subjective Encounter Date: 10/20/19 Encounter Time: 17:10 Subjective: f/u for Influenza A/PNA and A-fib with RVR now back on Cardizem gtt. States feeling weak but ambulated with PT today. Some residual cough. Completed Tamiflu today. - Objective Vital Signs & Weight: Vital Signs (12 hours) Temp Pulse Pulse Pulse Resp BP BP 10/20/19 15:48 97.1 F L 10/20/19 15:27 100 15 10/20/19 11:35 120 H 15 10/20/19 11:17 96.8 F L 10/20/19 09:32 118 H 10/20/19 09:22 122 H 111 H 113/78 121/62 10/20/19 08:35 118 H 19 10/20/19 08:00 10/20/19 07:17 97.6 F Pulse Ox Pulse Ox Pulse Ox 10/20/19 15:48 10/20/19 15:27 99 10/20/19 11:35 99 10/20/19 11:17 10/20/19 09:32 10/20/19 09:22 93 L 93 L 10/20/19 08:35 94 L 10/20/19 08:00 94 L 10/20/19 07:17 Weight Admit Weight 102 lb Weight 104 lb 3 oz Most Recent Monitor Data Heart Rate from ECG 105 NIBP 113/56 NIBP BP-Mean 75 Respiration from ECG 17 SpO2 91 I&O: 10/19/19 10/20/19 10/21/19 06:59 06:59 06:59 Intake Total 1010 1120 Balance 1010 1120 Result Diagrams: 10/20/19 03:26 10/15/19 03:16 Additional Labs: Microbiology 10/15/19 19:40 Stool C. difficile GDH Antigen & Toxins - Final 10/14/19 21:11 Nasopharynx Influenza Types A,B Direct EIA - Final 11/15/18 09:10 Sputum Respiratory Culture - Preliminary 10/14/19 10:34 Venous blood - Right Arm Blood Culture - Preliminary NO GROWTH AT 48 HOURS 10/14/19 10:34 Venous blood - Left Arm Blood Culture - Preliminary NO GROWTH AT 48 HOURS Laboratory Tests 11/13/18 11/14/18 11/14/18 16:31 15:42 15:42 Hgb Iron 13 L TIBC 373 Transferrin 298 Ferritin Troponin I Vitamin B12 468 Folate 6.70 L Free T4 0.91 TSH 3rd Generation 4.8501 10/14/19 10/14/19 10/14/19 09:44 09:44 14:07 Hgb 10.7 L Iron TIBC Transferrin Ferritin Troponin I 0.056 H 0.076 H Vitamin B12 Folate Free T4 TSH 3rd Generation 10/14/19 10/15/19 10/15/19 17:07 03:16 03:16 Hgb Iron 16 L 17 L TIBC Transferrin Ferritin Troponin I 0.038 H Vitamin B12 Folate Free T4 TSH 3rd Generation 10/15/19 10/15/19 10/15/19 03:16 03:16 09:40 Hgb 8.4 L Iron TIBC Transferrin Ferritin 29.91 Troponin I Vitamin B12 Folate Free T4 TSH 3rd Generation 3.6248 10/15/19 09:40 Hgb 8.3 L Iron TIBC Transferrin Ferritin Troponin I Vitamin B12 Folate Free T4 TSH 3rd Generation EKG Reviewed by me: Yes (Tele - A-fib in the low-100's) Hospitalist ROS - Medication Medications: Active Medications Generic Name Dose Route Start Last Admin Trade Name Freq PRN Reason Stop Dose Admin Acetaminophen 650 mg 10/14/19 15:35 10/20/19 11:49 Tylenol PO 650 mg Q4H PRN Administration Headache/Fever/Mild Pain (1-3) Albuterol/Ipratropium 3 ml 10/16/19 11:54 10/19/19 00:51 Duoneb NEB 3 ml Q4H PRN Administration SOB &/or Wheezing Albuterol/Ipratropium 3 ml 10/17/19 19:00 10/20/19 15:27 Duoneb NEB 3 ml [id number] SANDI Administration Amoxicillin/Clavulanate Potassium 875 mg 10/16/19 21:00 10/20/19 09:32 Augmentin PO 875 mg Q12HR SANDI Administration Apixaban 2.5 mg 10/15/19 21:00 10/20/19 09:32 Eliquis PO 2.5 mg BID SANDI Administration Clonazepam 0.5 mg 10/14/19 21:48 10/19/19 22:34 Klonopin PO 0.5 mg HS PRN Administration Anxiety/Insomnia Diltiazem HCl 120 mg 10/16/19 09:00 02/17/20 09:32 Cardizem Cd PO 120 mg DAILY SANDI Administration Dronedarone 400 mg 10/15/19 08:00 10/20/19 09:32 Multaq PO 400 mg BID-WM SNADI Administration Ferrous Sulfate 325 mg 10/19/19 17:00 10/20/19 09:32 Feosol PO 325 mg BID-WM SANDI Administration Guaifenesin/Dextromethorphan 15 ml 10/19/19 11:30 10/20/19 16:38 Robitussin Dm PO Not Given Q4H SANDI Diltiazem HCl 125 mg/ Sodium 125 mls @ 10 mls/hr 10/20/19 12:30 10/20/19 12: 48 Chloride IVPB 125 mls INF SANDI Administration 10 MG/HR Methylprednisolone Sodium Succinate 20 mg 10/18/19 18:00 10/20/19 11:50 Solu-Medrol IVP 20 mg Q6HR SANDI Administration Metoprolol Tartrate 25 mg 10/14/19 21:00 10/20/19 09:32 Lopressor PO 25 mg BID SANDI Administration Sodium Chloride 10 ml 10/16/19 09:00 10/20/19 09:33 Flush - Normal Saline IVF 10 ml Q12HR SANDI Administration Sodium Chloride 10 ml 10/16/19 07:29 10/20/19 06:21 Flush - Normal Saline IVF 10 ml PRN PRN Administration Saline Flush - Exam General Appearance: NAD, awake alert Eye: PERRL, anicteric sclera ENT: normocephalic atraumatic, no oropharyngeal lesions Neck: supple, symmetric, no JVD, no thyromegaly Heart: no rubs, normal peripheral pulses, irregular Heart - other findings: tachycardic Respiratory - other findings: few scattered rhonchi Gastrointestinal: soft, non-tender, non-distended, normal bowel sounds, no palpable masses Extremities: no cyanosis, no clubbing, no edema Skin: normal turgor, no lesions Neurological: cranial nerve grossly intact, no new deficit Musculoskeletal: normal tone, generalized weakness Psychiatric: normal affect, A&O x 3 Hosp A/P (1) Influenza A Code(s): J10.1 - FLU DUE TO OTH IDENT INFLUENZA VIRUS W OTH RESP MANIFEST Status: Acute Plan: Completed Tamiflu today, d/c resp precautions (2) Atrial fibrillation with rapid ventricular response Code(s): I48.91 - UNSPECIFIED ATRIAL FIBRILLATION Status: Acute Plan: Cardizem gtt resumed, plan for PARMINDER/Cardioversion in am (3) Acute respiratory failure with hypoxia Code(s): J96.01 - ACUTE RESPIRATORY FAILURE WITH HYPOXIA Status: Acute Plan: Improved, continue pulm support (4) HTN (hypertension) Code(s): I10 - ESSENTIAL (PRIMARY) HYPERTENSION Status: Chronic Qualifiers: Hypertension type: essential hypertension Qualified Code(s): I10 - Essential (primary) hypertension - Plan continue antibiotics, PT/OT, social services specialist, respiratory therapy, out of bed/ ambulate, DVT proph w/SCDs Stable currently Continue Tamiflu Continue Solumedrol Resp precautions d/c OOB with PT Add Robitussin DM Add FeSO4 325mg BID AM lab: H/H
[2019-10-20] MEDS: Mag-Al 1200 mg/1200 mg/30 ML UDCUP PO PRN (18:27)
[2019-10-20] MEDS: clonazePAM 0.5 MG TABLET PO PRN (23:18)
[2019-10-21] MEDS: Guaifenesin DM 100-10/5 ML UDCUP PO SCH ×6 (04:28→23:41)
[2019-10-21] MEDS: methylPREDNISolone Sod Succ 40 MG VIAL IVP SCH ×3 (06:00→18:08)
[2019-10-21] MEDS ORDERED: PROPOFOL 20 ML ONE (08:47)
[2019-10-21] MEDS ORDERED: PROPOFOL 200 MG/20 ML VIAL ONE (09:24)
--- NOTE | 2019-10-21 09:51 | PRG ---
DATE OF SERVICE: 10/21/2019 SUBJECTIVE: Ms. Juarez underwent successful cardioversion this morning. She is now waking up. Her blood pressure just after the cardioversion is in the 90s systolic and pulse is in the 50s. We have just stopped the intravenous diltiazem. OBJECTIVE: LUNGS: No new wheezing. CARDIAC: She has now normal S1 and normal S2. ABDOMEN: Soft and nontender. EXTREMITIES: No edema. ASSESSMENT: 1. Pneumonia. 2. Atrial fibrillation, persistent, now status post cardioversion. 3. Right ventricle and right atrial enlargement due to lung difficulties. PLAN: 1. She is on reduced dose Eliquis in view of her weight and age. 2. She is on the Multaq. 3. Intravenous Cardizem has been stopped. 4. She is on oral diltiazem and metoprolol. Job ID: [id number]
[2019-10-21] MEDS: Dronedarone HCl 400 MG TAB PO SCH ×2 (10:29→16:54)
[2019-10-21] MEDS: Ferrous Sulfate 325 MG TAB PO SCH ×2 (10:29→16:54)
[2019-10-21] MEDS: Metoprolol Tartrate 25 MG TAB PO SCH (10:30)
[2019-10-21] MEDS: Apixaban 2.5 MG TAB PO SCH ×2 (10:30→20:37)
[2019-10-21] MEDS: Amoxicillin/Potassium Clav 875 MG TAB PO SCH ×2 (10:30→20:37)
[2019-10-21] MEDS: Iron, Sodium Ferric Gluconate 250 MG in Sodium Chloride 0.9% 100 ML IVPB SCH ×2 (11:05→22:51)
--- NOTE | 2019-10-21 15:15 | OP ---
DATE OF PROCEDURE: 10/21/2019 PROCEDURE PERFORMED: Transesophageal echocardiogram. INDICATIONS FOR PROCEDURE: Sadie Juarez is an 84-year-old woman with paroxysmal atrial fibrillation. DESCRIPTION OF PROCEDURE: The patient was taken to the PACU. The patient was sedated by Anesthesiology. A transesophageal probe was placed into the distal esophagus and stomach. Echocardiographic images were obtained. The transesophageal probe was removed. FINDINGS: 1. Normal left ventricular systolic function. 2. Left atrial enlargement. 3. The right atrium is markedly enlarged. 4. The right ventricle is dilated. 5. Mild mitral regurgitation. 6. Mild to moderate tricuspid regurgitation. 7. No thrombus noted in the left atrium or left atrial appendage. 8. Atherosclerotic debris in the descending aorta. IMPRESSION: No formed thrombus in the left atrium or left atrial appendage. Job ID: [id number]
--- NOTE | 2019-10-21 16:30 | PDOC.HOSPP ---
- Subjective Encounter Date: 10/21/19 Encounter Time: 16:25 Subjective: f/u for A-fib RVR s/p PARMINDER/Cardioversion with return to SR. Feels weak overall. Receiving IV Iron this pm. - Objective Vital Signs & Weight: Vital Signs (12 hours) Temp Pulse Resp Pulse Ox 10/21/19 15:49 98.8 F 10/21/19 14:45 60 16 92 L 10/21/19 12:03 97.4 F L 10/21/19 10:39 75 18 95 10/21/19 10:29 54 L 10/21/19 08:00 94 L 10/21/19 07:32 97.2 F L 10/21/19 07:23 92 L 10/21/19 07:22 84 16 92 L Weight Admit Weight 102 lb Weight 104 lb 3 oz Most Recent Monitor Data Heart Rate from ECG 76 NIBP 122/52 NIBP BP-Mean 75 Respiration from ECG 20 SpO2 92 I&O: 10/20/19 10/21/19 10/22/19 06:59 06:59 06:59 Intake Total 1120 1145 Balance 1120 1145 Result Diagrams: 10/20/19 03:26 10/15/19 03:16 Additional Labs: Microbiology 10/15/19 19:40 Stool C. difficile GDH Antigen & Toxins - Final 10/14/19 21:11 Nasopharynx Influenza Types A,B Direct EIA - Final 11/15/18 09:10 Sputum Respiratory Culture - Preliminary 10/14/19 10:34 Venous blood - Right Arm Blood Culture - Preliminary NO GROWTH AT 48 HOURS 10/14/19 10:34 Venous blood - Left Arm Blood Culture - Preliminary NO GROWTH AT 48 HOURS Laboratory Tests 11/13/18 11/14/18 11/14/18 16:31 15:42 15:42 Hgb Iron 13 L TIBC 373 Transferrin 298 Ferritin Troponin I Vitamin B12 468 Folate 6.70 L Free T4 0.91 TSH 3rd Generation 4.8501 10/14/19 10/14/19 10/14/19 09:44 09:44 14:07 Hgb 10.7 L Iron TIBC Transferrin Ferritin Troponin I 0.056 H 0.076 H Vitamin B12 Folate Free T4 TSH 3rd Generation 10/14/19 10/15/19 10/15/19 17:07 03:16 03:16 Hgb Iron 16 L 17 L TIBC Transferrin Ferritin Troponin I 0.038 H Vitamin B12 Folate Free T4 TSH 3rd Generation 10/15/19 10/15/19 10/15/19 03:16 03:16 09:40 Hgb 8.4 L Iron TIBC Transferrin Ferritin 29.91 Troponin I Vitamin B12 Folate Free T4 TSH 3rd Generation 3.6248 10/15/19 09:40 Hgb 8.3 L Iron TIBC Transferrin Ferritin Troponin I Vitamin B12 Folate Free T4 TSH 3rd Generation EKG Reviewed by me: Yes (Tele - SR) Hospitalist ROS - Medication Medications: Active Medications Generic Name Dose Route Start Last Admin Trade Name Freq PRN Reason Stop Dose Admin Acetaminophen 650 mg 10/14/19 15:35 10/20/19 11:49 Tylenol PO 650 mg Q4H PRN Administration Headache/Fever/Mild Pain (1-3) Al Hydroxide/Mg Hydroxide 15 ml 10/20/19 18:20 10/20/19 18:27 Maalox PO 15 ml Q6H PRN Administration INDIGESTION Albuterol/Ipratropium 3 ml 10/16/19 11:54 10/19/19 00:51 Duoneb NEB 3 ml Q4H PRN Administration SOB &/or Wheezing Albuterol/Ipratropium 3 ml 10/17/19 19:00 10/21/19 14:45 Duoneb NEB 3 ml [id number] SANDI Administration Amoxicillin/Clavulanate Potassium 875 mg 10/16/19 21:00 10/21/19 10:30 Augmentin PO 875 mg Q12HR SANDI Administration Apixaban 2.5 mg 10/15/19 21:00 10/21/19 10:30 Eliquis PO 2.5 mg BID SANDI Administration Clonazepam 0.5 mg 10/14/19 21:48 10/20/19 23:18 Klonopin PO 0.5 mg HS PRN Administration Anxiety/Insomnia Diltiazem HCl 120 mg 10/16/19 09:00 10/21/19 10:29 Cardizem Cd PO 120 mg DAILY SANDI Administration Dronedarone 400 mg 10/15/19 08:00 10/21/19 10:29 Multaq PO 400 mg BID-WM SANDI Administration Ferrous Sulfate 325 mg 10/19/19 17:00 10/21/19 10:29 Feosol PO 325 mg BID-WM SANDI Administration Guaifenesin/Dextromethorphan 15 ml 10/19/19 11:30 10/21/19 15:55 Robitussin Dm PO Not Given Q4H SANDI Ferric Sodium Gluconate 120 mls @ 60 mls/hr 10/21/19 11:00 10/21/19 11:05 Complex 250 mg/ Sodium IVPB 10/22/19 00:59 120 mls Chloride 1100,2300 SANDI Administration Methylprednisolone Sodium Succinate 20 mg 10/18/19 18:00 10/21/19 12:11 Solu-Medrol IVP 20 mg Q6HR SANDI Administration Metoprolol Tartrate 25 mg 10/14/19 21:00 10/21/19 10:30 Lopressor PO 25 mg BID SANDI Administration Sodium Chloride 10 ml 10/16/19 09:00 10/21/19 10:30 Flush - Normal Saline IVF 10 ml Q12HR SANDI Administration Sodium Chloride 10 ml 10/16/19 07:29 10/21/19 06:00 Flush - Normal Saline IVF 10 ml PRN PRN Administration Saline Flush - Exam General Appearance: NAD, awake alert General - other findings: frail, talkative Eye: PERRL, anicteric sclera ENT: normocephalic atraumatic, no oropharyngeal lesions Neck: supple, symmetric, no JVD, no thyromegaly, no lymphadenopathy Heart: RRR, no gallops, no rubs, normal peripheral pulses Respiratory - other findings: few scattered rhonchi Gastrointestinal: soft, non-tender, non-distended, normal bowel sounds Extremities: no cyanosis, no edema Skin: normal turgor, no lesions Neurological: cranial nerve grossly intact, no new deficit Musculoskeletal: normal tone, generalized weakness Psychiatric: A&O x 3 Hosp A/P (1) Influenza A Code(s): J10.1 - FLU DUE TO OTH IDENT INFLUENZA VIRUS W OTH RESP MANIFEST Status: Acute Plan: Resolved and completed Tamiflu, general pulm support (2) Atrial fibrillation with rapid ventricular response Code(s): I48.91 - UNSPECIFIED ATRIAL FIBRILLATION Status: Acute Plan: s/p PARMINDER with Cardioversion and return to SR, continue rate-control, Multaq/ Diltiazem/Eliquis (3) Acute respiratory failure with hypoxia Code(s): J96.01 - ACUTE RESPIRATORY FAILURE WITH HYPOXIA Status: Acute Plan: Resolved (4) HTN (hypertension) Code(s): I10 - ESSENTIAL (PRIMARY) HYPERTENSION Status: Chronic Qualifiers: Hypertension type: essential hypertension Qualified Code(s): I10 - Essential (primary) hypertension - Plan continue antibiotics, PT/OT, nursing home social worker, respiratory therapy, out of bed/ ambulate, DVT proph w/SCDs Stable currently Continue Tamiflu Continue Solumedrol Resp precautions d/c OOB with PT Add Robitussin DM Add FeSO4 325mg BID AM lab: BMP
--- NOTE | 2019-10-21 20:03 | PRG ---
DATE OF SERVICE: 10/21/2019 SUBJECTIVE: Ms. Juarez did well overnight. She is in no distress. She is afebrile. Heart rate is in the 60s, respiratory rates in 18, oximetry is 92% on room air. She still says she feels like she is having asthma, but I really do not think she is. I feel after examining her that a lot of what we are dealing with is just secondary to muscle deconditioning. She has only end-expiratory wheezes. I have explained to her that five years ago, she would not even have been in the hospital with this, but she has been so inactive since her , she cannot tolerate a mild asthma exacerbation. There is no new lab today. IMPRESSION: 1. Status asthmaticus. 2. Atrial fibrillation. PLAN: Continue supportive care and physical therapy. She can be switched to p.o. steroids. Job ID: [id number]
[2019-10-21] MEDS: clonazePAM 0.5 MG TABLET PO PRN (20:49)
[2019-10-21] MEDS: Mag-Al 1200 mg/1200 mg/30 ML UDCUP PO PRN (22:47)
[2019-10-22] MEDS: Guaifenesin DM 100-10/5 ML UDCUP PO SCH ×5 (04:09→19:45)
[2019-10-22 04:13] LABS: Anion Gap 11 mmol/L (10-20); BUN (Urea Nitrogen) 27 mg/dL (9.8-20.1); Calc. Creatinine Clearance 43 mL/min (70-130); Calcium 8.4 mg/dL (7.8-10.44); Carbon Dioxide 26 mmol/L (23-31); Chloride 106 mmol/L (98-107); Estimated GFR-MDRD 75; Glucose 159 mg/dL (83-110); Potassium 4.4 mmol/L (3.5-5.1); Sodium 139 mmol/L (136-145)
[2019-10-22] MEDS: Amoxicillin/Potassium Clav 875 MG TAB PO SCH ×2 (09:25→20:26)
[2019-10-22] MEDS: Ferrous Sulfate 325 MG TAB PO SCH ×2 (09:29→16:02)
[2019-10-22] MEDS: predniSONE 20 MG TAB PO SCH (09:29)
[2019-10-22] MEDS: Apixaban 2.5 MG TAB PO SCH ×2 (09:29→20:26)
[2019-10-22] MEDS: Dronedarone HCl 400 MG TAB PO SCH ×2 (09:29→16:02)
--- NOTE | 2019-10-22 09:49 | PRG ---
DATE OF SERVICE: 10/22/2019 SUBJECTIVE: Ms. Juarez is short of breath this morning. She said her breathing is not improved. No chest pain. OBJECTIVE: VITAL SIGNS: Blood pressure 133/65, pulse is 60, in sinus. LUNGS: Expiratory wheezing. CARDIAC: Normal S1, normal S2. ABDOMEN: Soft, nontender. EXTREMITIES: There is no edema. LABORATORY DATA: The hemoglobin on the was 8.2. ASSESSMENT: 1. Paroxysmal atrial fibrillation, now in sinus rhythm after cardioversion. 2. Severe chronic obstructive pulmonary disease, still wheezing. 3. Iron deficiency anemia. She has received iron. PLAN: 1. Continue inhaled bronchodilators and antibiotics as well steroids. 2. We will check BNP to see if there is any evidence of diastolic heart failure. Job ID: [id number]
--- NOTE | 2019-10-22 15:19 | PDOC.HOSPP ---
- Subjective Encounter Date: 10/22/19 Encounter Time: 15:15 Subjective: f/u for resp failure, Influenza A tx with 5 days of Tamiflu and s/p PARMINDER/CV for A -fib with current SR. Continues to feel weak and fatigued. Has not worked with PT except one session. - Objective Vital Signs & Weight: Vital Signs (12 hours) Temp Pulse Resp Pulse Ox 10/22/19 15:15 98.1 F 10/22/19 15:06 66 22 H 92 L 10/22/19 11:17 98.3 F 10/22/19 10:42 60 18 93 L 10/22/19 10:20 58 L 10/22/19 08:00 98 10/22/19 07:16 97.4 F L 10/22/19 06:46 93 L 10/22/19 06:43 55 L 15 93 L 10/22/19 03:41 98.3 F Weight Admit Weight 102 lb Weight 104 lb 3 oz Most Recent Monitor Data Heart Rate from ECG 63 NIBP 125/59 NIBP BP-Mean 81 Respiration from ECG 28 SpO2 93 I&O: 10/21/19 10/22/19 10/23/19 06:59 06:59 06:59 Intake Total 1145 320 Balance 1145 320 Result Diagrams: 10/20/19 03:26 10/22/19 03:29 Additional Labs: Microbiology 10/15/19 19:40 Stool C. difficile GDH Antigen & Toxins - Final 10/14/19 21:11 Nasopharynx Influenza Types A,B Direct EIA - Final 11/15/18 09:10 Sputum Respiratory Culture - Preliminary 10/14/19 10:34 Venous blood - Right Arm Blood Culture - Preliminary NO GROWTH AT 48 HOURS 10/14/19 10:34 Venous blood - Left Arm Blood Culture - Preliminary NO GROWTH AT 48 HOURS Laboratory Tests 11/13/18 11/14/18 11/14/18 16:31 15:42 15:42 Hgb Iron 13 L TIBC 373 Transferrin 298 Ferritin Troponin I Vitamin B12 468 Folate 6.70 L Free T4 0.91 TSH 3rd Generation 4.8501 10/14/19 10/14/19 10/14/19 09:44 09:44 14:07 Hgb 10.7 L Iron TIBC Transferrin Ferritin Troponin I 0.056 H 0.076 H Vitamin B12 Folate Free T4 TSH 3rd Generation 10/14/19 10/15/19 10/15/19 17:07 03:16 03:16 Hgb Iron 16 L 17 L TIBC Transferrin Ferritin Troponin I 0.038 H Vitamin B12 Folate Free T4 TSH 3rd Generation 10/15/19 10/15/19 10/15/19 03:16 03:16 09:40 Hgb 8.4 L Iron TIBC Transferrin Ferritin 29.91 Troponin I Vitamin B12 Folate Free T4 TSH 3rd Generation 3.6248 10/15/19 09:40 Hgb 8.3 L Iron TIBC Transferrin Ferritin Troponin I Vitamin B12 Folate Free T4 TSH 3rd Generation EKG Reviewed by me: Yes (Tele - SR) Hospitalist ROS - Medication Medications: Active Medications Generic Name Dose Route Start Last Admin Trade Name Freq PRN Reason Stop Dose Admin Acetaminophen 650 mg 10/14/19 15:35 10/20/19 11:49 Tylenol PO 650 mg Q4H PRN Administration Headache/Fever/Mild Pain (1-3) Al Hydroxide/Mg Hydroxide 15 ml 10/20/19 18:20 10/21/19 22:47 Maalox PO 15 ml Q6H PRN Administration INDIGESTION Albuterol/Ipratropium 3 ml 10/16/19 11:54 10/19/19 00:51 Duoneb NEB 3 ml Q4H PRN Administration SOB &/or Wheezing Albuterol/Ipratropium 3 ml 10/17/19 19:00 10/22/19 15:06 Duoneb NEB 3 ml [id number] SANDI Administration Amoxicillin/Clavulanate Potassium 875 mg 10/16/19 21:00 10/22/19 09:25 Augmentin PO 875 mg Q12HR SANDI Administration Apixaban 2.5 mg 10/15/19 21:00 10/22/19 09:29 Eliquis PO 2.5 mg BID SANDI Administration Clonazepam 0.5 mg 10/14/19 21:48 10/21/19 20:49 Klonopin PO 0.5 mg HS PRN Administration Anxiety/Insomnia Diltiazem HCl 120 mg 10/16/19 09:00 10/22/19 10:20 Cardizem Cd PO Not Given DAILY SANDI Dronedarone 400 mg 10/15/19 08:00 10/22/19 09:29 Multaq PO 400 mg BID-WM SANDI Administration Ferrous Sulfate 325 mg 10/19/19 17:00 10/22/19 09:29 Feosol PO 325 mg BID-WM SANDI Administration Guaifenesin/Dextromethorphan 15 ml 10/19/19 11:30 10/22/19 14:59 Robitussin Dm PO Not Given Q4H SANDI Prednisone 40 mg 10/22/19 08:00 10/22/19 09:29 Prednisone PO 40 mg QAM-WM SANDI Administration Sodium Chloride 10 ml 10/16/19 09:00 10/22/19 09:29 Flush - Normal Saline IVF 10 ml Q12HR SANDI Administration Sodium Chloride 10 ml 10/16/19 07:29 10/21/19 22:51 Flush - Normal Saline IVF 10 ml PRN PRN Administration Saline Flush - Exam General Appearance: NAD, awake alert Eye: PERRL, anicteric sclera ENT: normocephalic atraumatic, no oropharyngeal lesions Neck: supple, symmetric, no JVD, no thyromegaly Heart: RRR, no gallops, no rubs, normal peripheral pulses Respiratory - other findings: few scattered rhonchi Gastrointestinal: soft, non-tender, non-distended, normal bowel sounds Extremities: no cyanosis, no clubbing, no edema Skin: normal turgor, no lesions Neurological: cranial nerve grossly intact, no new deficit Musculoskeletal: normal tone, generalized weakness Psychiatric: normal affect, A&O x 3 Hosp A/P (1) Influenza A Code(s): J10.1 - FLU DUE TO OTH IDENT INFLUENZA VIRUS W OTH RESP MANIFEST Status: Acute Plan: Tamiflu 5-day course completed, continue routine pulm support (2) Atrial fibrillation with rapid ventricular response Code(s): I48.91 - UNSPECIFIED ATRIAL FIBRILLATION Status: Acute Plan: s/p PARMINDER/CV with return to SR, continue rate-control, anticoagulation (3) Acute respiratory failure with hypoxia Code(s): J96.01 - ACUTE RESPIRATORY FAILURE WITH HYPOXIA Status: Acute Plan: Continue O2 supplementation, Duonebs, OOB/ambulate (4) HTN (hypertension) Code(s): I10 - ESSENTIAL (PRIMARY) HYPERTENSION Status: Chronic Qualifiers: Hypertension type: essential hypertension Qualified Code(s): I10 - Essential (primary) hypertension (5) Physical deconditioning Code(s): R53.81 - OTHER MALAISE Status: Chronic Plan: OOB with PT/OT, home with PT - Plan plan discussed w/ family, continue antibiotics, PT/OT, social professionals, respiratory therapy, out of bed/ambulate, DVT proph w/SCDs Stable currently Continue Prednisone Resp precautions d/c OOB with PT Add Robitussin DM Add FeSO4 325mg BID HH with PT AM lab: BMP Transfer to telemetry
[2019-10-22] MEDS ORDERED: Senokot S 8.6-50 MG TAB PO SCH (15:45)
--- NOTE | 2019-10-22 19:07 | OP ---
DATE OF PROCEDURE: 10/21/19 SURGEON: Hawk Joseph M.D. PROCEDURE: Cardioversion external The patient is brought to the Post Cath area in the fasting state. She was sedated by anesthesia. Tra nsesophageal echo revealed no evidence of any intracardiac thrombus. Following this, patient was give n 200 joules direct current synchronized energy and converted to junctional rhythm in the 50s and the n junctional with PACs and sinus rhythm. CONCLUSIONS: 1. Successful cardioversion. 2. On the transesophageal echo she has a very large right ventricle and right atrium.
--- NOTE | 2019-10-22 19:13 | PRG ---
DATE OF SERVICE: 10/22/2019 SUBJECTIVE: Sadie Henning says she is feeling better. She is motivated to get up and move. I think a conversation with her about going to rehab might stimulated her to get more interested in moving. OBJECTIVE: VITAL SIGNS: She is afebrile, heart rate 70, respiratory rate 16, oximetry is 94% on room air, and blood pressure 136/62. She is still in atrial fibrillation with a rate of 114. LUNGS: Clear. HEART: Regular rhythm. ABDOMEN: Soft. IMPRESSION: 1. Status asthmaticus. 2. Atrial fibrillation with rapid ventricular response. PLAN: Transfer to telemetry. Continue with nebulized treatments and prednisone. We will follow. Job ID: [id number]
[2019-10-22] MEDS: clonazePAM 0.5 MG TABLET PO PRN (20:26)
[2019-10-22] MEDS: Senokot S 8.6-50 MG TAB PO SCH (20:26)
[2019-10-23] MEDS: Guaifenesin DM 100-10/5 ML UDCUP PO SCH ×6 (00:48→21:39)
[2019-10-23 06:25] LABS: Bilirubin Negative (Negative); Blood, Urine 3+ (Negative); Clarity Clear (Clear); Glucose, Urine (Dipstick) Normal (Negative); Leukocyte Negative Leu/uL (Negative); Nitrite Negative (Negative); Protein, Urine (Dipstick) 10 mg/dL (Neg-Trace); RBC/HPF 21-50 HPF (0-3); Squamous Epithelial None Seen HPF (0-3); Urobilinogen Normal mg/dL (Less than 2); WBC/HPF 0-3 HPF (0-3)
[2019-10-23 06:35] LABS: Bacteria/HPF 2+ HPF (None Seen)
[2019-10-23 06:38] LABS: Urine Culture Reflex Yes Yes
[2019-10-23] MEDS: Apixaban 2.5 MG TAB PO SCH ×2 (08:31→21:40)
[2019-10-23] MEDS: Dronedarone HCl 400 MG TAB PO SCH ×2 (08:31→16:07)
[2019-10-23] MEDS: Ferrous Sulfate 325 MG TAB PO SCH ×2 (08:31→16:07)
[2019-10-23] MEDS: predniSONE 20 MG TAB PO SCH (08:31)
[2019-10-23] MEDS: Amoxicillin/Potassium Clav 875 MG TAB PO SCH ×2 (08:31→21:40)
[2019-10-23] MEDS: Senokot S 8.6-50 MG TAB PO SCH ×2 (08:32→21:40)
--- NOTE | 2019-10-23 12:18 | PQF ---
CLINICAL DOCUMENTATION IMPROVEMENT CLARIFICATION FORM: ICD-10 Updated PLEASE DO AN ADDENDUM TO THE PROGRESS NOTE WITH ANY DOCUMENTATION UPDATES OR ADDITIONS AND CARRY THROUGH TO DC SUMMARY. THANK YOU. DATE: 10/23/19 ATTN : DR. FREDERICK Please exercise your independent, professional judgment in responding to the clarification form. Clinical indicators are provided on the bottom of this form for your review Please check appropriate box(s): [ ] Aspiration Pneumonia [ ] Aspiration Bronchitis [ ] Empirically treating Gram Negative Pneumonia [ ] Empirically treating Anaerobic Pneumonia [ x ] Pneumonia secondary to (specify organism / underlying disease) ___ Influenza A/Gm + cocci [ ] Simple Pneumonia [ ] Bronchopneumonia [ ] Pneumonia of unknown etiology [ ] Other diagnosis [ ] Unable to determine In addition, please specify: Present on Admission (POA): [ x ] Yes [ ] No [ ] Unable to determine For continuity of documentation, please document condition throughout progress notes and discharge summary. Thank You. CLINICAL INDICATORS - SIGNS / SYMPTOMS / LABS / RESULTS AND LOCATION IN MR HOSPITALIST PROGRESS NOTE 10/17: "COMMUNITY ACQUIRED PNEUMONIA" PROGRESS NOTE (PULMONARY) 10/17: "BIBASILAR PNEUMONIA VERSUS MUCOUS PLUGGING ER VITALS: PULSE 158 RR 24 BANDS 10/14: 18 RT NOTE 10/16: "CRACKLES" RT NOTE 10/18: ""RALES / MOIST COUGH" CHEST XRAY 10/14: "POSSIBLE LEFT LOWER LOBE INFILTRATE" RISKS: +INFLUENZA (PROGRESS NOTE 10/17) ASTHMA EXACERBATION (PROGRESS NOTE- PULMONARY 10/17) TREATMENT: IV AZITHROMYCIN (ER) IV ROCEPHIN (ER) IV FLUIDS (ER) DUONEBS (10/17-PRESENT) GUAIFENESIN (10/19-PRESENT) AUGMENTIN (10/16-PRESENT) IV SOLUMEDROL (10/18-10/21) PREDNISONE (10/22-PRESENT) PULMONARY CONSULT (10/14) CHEST XRAYS 10/14, 10/15 (This form is maintained as a part of the permanent medical record) 2014 [employer]. All Rights Reserved SADI [email or web address] Office: [phone] [facility]
--- NOTE | 2019-10-23 16:39 | PDOC.HOSPP ---
- Subjective Encounter Date: 10/23/19 Encounter Time: 16:30 Subjective: f/u for A-fib RVR s/p PARMINDER/CV and return to SR. Remains weak but overall much improved. Ambulated 90ft with PT. - Objective Vital Signs & Weight: Vital Signs (12 hours) Temp Pulse Pulse Pulse Resp BP BP 10/23/19 16:06 97.7 F 77 20 10/23/19 14:50 70 69 145/65 H 146/65 H 10/23/19 14:11 72 16 10/23/19 11:15 98.4 F 78 20 10/23/19 10:40 69 16 10/23/19 07:15 97.8 F 60 16 10/23/19 06:50 10/23/19 06:49 56 L 16 BP Pulse Ox Pulse Ox Pulse Ox 10/23/19 16:06 133/63 94 L 10/23/19 14:50 94 L 94 L 10/23/19 14:11 91 L 10/23/19 11:15 146/67 H 94 L 10/23/19 10:40 92 L 10/23/19 07:15 144/65 H 95 10/23/19 06:50 96 10/23/19 06:49 96 Weight Admit Weight 102 lb Weight 99 lb 8 oz Most Recent Monitor Data Heart Rate from ECG 74 NIBP 135/67 NIBP BP-Mean 89 Respiration from ECG 25 SpO2 94 I&O: 10/22/19 10/23/19 10/24/19 06:59 06:59 06:59 Intake Total 320 1030 Output Total 1300 Balance 320 -270 Result Diagrams: 10/20/19 03:26 10/22/19 03:29 Additional Labs: Microbiology 10/15/19 19:40 Stool C. difficile GDH Antigen & Toxins - Final 10/14/19 21:11 Nasopharynx Influenza Types A,B Direct EIA - Final 11/15/18 09:10 Sputum Respiratory Culture - Preliminary 10/14/19 10:34 Venous blood - Right Arm Blood Culture - Preliminary NO GROWTH AT 48 HOURS 10/14/19 10:34 Venous blood - Left Arm Blood Culture - Preliminary NO GROWTH AT 48 HOURS Laboratory Tests 11/13/18 11/14/18 11/14/18 16:31 15:42 15:42 Hgb Iron 13 L TIBC 373 Transferrin 298 Ferritin Troponin I Vitamin B12 468 Folate 6.70 L Free T4 0.91 TSH 3rd Generation 4.8501 10/14/19 10/14/19 10/14/19 09:44 09:44 14:07 Hgb 10.7 L Iron TIBC Transferrin Ferritin Troponin I 0.056 H 0.076 H Vitamin B12 Folate Free T4 TSH 3rd Generation 10/14/19 10/15/19 10/15/19 17:07 03:16 03:16 Hgb Iron 16 L 17 L TIBC Transferrin Ferritin Troponin I 0.038 H Vitamin B12 Folate Free T4 TSH 3rd Generation 10/15/19 10/15/19 10/15/19 03:16 03:16 09:40 Hgb 8.4 L Iron TIBC Transferrin Ferritin 29.91 Troponin I Vitamin B12 Folate Free T4 TSH 3rd Generation 3.6248 10/15/19 09:40 Hgb 8.3 L Iron TIBC Transferrin Ferritin Troponin I Vitamin B12 Folate Free T4 TSH 3rd Generation EKG Reviewed by me: Yes (Tele - SR) Hospitalist ROS - Medication Medications: Active Medications Generic Name Dose Route Start Last Admin Trade Name Freq PRN Reason Stop Dose Admin Acetaminophen 650 mg 10/14/19 15:35 10/20/19 11:49 Tylenol PO 650 mg Q4H PRN Administration Headache/Fever/Mild Pain (1-3) Al Hydroxide/Mg Hydroxide 15 ml 10/20/19 18:20 10/21/19 22:47 Maalox PO 15 ml Q6H PRN Administration INDIGESTION Albuterol/Ipratropium 3 ml 10/16/19 11:54 10/19/19 00:51 Duoneb NEB 3 ml Q4H PRN Administration SOB &/or Wheezing Albuterol/Ipratropium 3 ml 10/17/19 19:00 10/23/19 14:11 Duoneb NEB 3 ml [id number] SANDI Administration Amoxicillin/Clavulanate Potassium 875 mg 10/16/19 21:00 10/23/19 08:31 Augmentin PO 875 mg Q12HR SANDI Administration Apixaban 2.5 mg 10/15/19 21:00 10/23/19 08:31 Eliquis PO 2.5 mg BID SANDI Administration Clonazepam 0.5 mg 10/14/19 21:48 10/22/19 20:26 Klonopin PO 0.5 mg HS PRN Administration Anxiety/Insomnia Diltiazem HCl 120 mg 10/16/19 09:00 10/23/19 08:31 Cardizem Cd PO 120 mg DAILY SANDI Administration Dronedarone 400 mg 10/15/19 08:00 10/23/19 16:07 Multaq PO 400 mg BID-WM SANDI Administration Ferrous Sulfate 325 mg 10/19/19 17:00 10/23/19 16:07 Feosol PO 325 mg BID-WM SANDI Administration Guaifenesin/Dextromethorphan 15 ml 10/19/19 11:30 10/23/19 16:07 Robitussin Dm PO 15 ml Q4H SANDI Administration Prednisone 40 mg 10/22/19 08:00 10/23/19 08:31 Prednisone PO 40 mg QAM-WM SANDI Administration Senna/Docusate Sodium 1 tab 10/22/19 21:00 10/23/19 08:32 Senokot S PO 1 tab BID SANDI Administration Sodium Chloride 10 ml 10/16/19 09:00 10/23/19 08:32 Flush - Normal Saline IVF 10 ml Q12HR SANDI Administration Sodium Chloride 10 ml 10/16/19 07:29 10/21/19 22:51 Flush - Normal Saline IVF 10 ml PRN PRN Administration Saline Flush - Exam General Appearance: NAD, awake alert Eye: PERRL, anicteric sclera ENT: normocephalic atraumatic, no oropharyngeal lesions Neck: supple, symmetric, no JVD, no thyromegaly Heart: RRR, no gallops, no rubs, normal peripheral pulses Heart - other findings: S1, S2 Respiratory: CTAB, no rales, normal chest expansion, no tachypnea Respiratory - other findings: occasional rhonchi Gastrointestinal: soft, non-tender, non-distended, normal bowel sounds, no palpable masses Extremities: no cyanosis, no clubbing, no edema Skin: normal turgor, no lesions Neurological: cranial nerve grossly intact, no new deficit Musculoskeletal: normal tone, generalized weakness Psychiatric: normal affect, A&O x 3 Hosp A/P (1) Influenza A Code(s): J10.1 - FLU DUE TO OTH IDENT INFLUENZA VIRUS W OTH RESP MANIFEST Status: Acute Plan: Suspect PNA in conjunction with recent Influenza A, tx empirically with Augmentin for Gm+ cocci (2) Atrial fibrillation with rapid ventricular response Code(s): I48.91 - UNSPECIFIED ATRIAL FIBRILLATION Status: Acute Plan: Current SR s/p PARMINDER/CV, continue rate-control measures (3) Acute respiratory failure with hypoxia Code(s): J96.01 - ACUTE RESPIRATORY FAILURE WITH HYPOXIA Status: Acute Plan: Off O2 currently, continue to monitor oximetry (4) HTN (hypertension) Code(s): I10 - ESSENTIAL (PRIMARY) HYPERTENSION Status: Chronic Qualifiers: Hypertension type: essential hypertension Qualified Code(s): I10 - Essential (primary) hypertension (5) Physical deconditioning Code(s): R53.81 - OTHER MALAISE Status: Chronic Plan: OOB with PT, pt prefers to go home with HH/PT and not rehab - Plan plan discussed w/ family, continue antibiotics, PT/OT, social media manager, respiratory therapy, out of bed/ambulate, DVT proph w/SCDs Stable currently Continue Prednisone Resp precautions d/c OOB with PT Add Robitussin DM Add FeSO4 325mg BID HH with PT Transfer to telemetry
--- NOTE | 2019-10-23 16:52 | PRG ---
DATE OF SERVICE: 10/23/2019 SUBJECTIVE: Sadie Juarez says she is feeling better. Physical therapy is getting ready to walk her when I saw her today. OBJECTIVE: VITAL SIGNS: She is afebrile, heart rate 77, respiratory rate is 20, oximetry is 94% on room air, blood pressure 145/65. LUNGS: Clear. HEART: Regular rhythm. ABDOMEN: Soft. IMPRESSION: 1. Atrial fibrillation, converted to sinus rhythm. 2. Asthma exacerbation, near her baseline. Deconditioning is the biggest factor at this point in time. She is adamantly opposed regarding going to rehab. Job ID: [id number]
[2019-10-23] MEDS: clonazePAM 0.5 MG TABLET PO PRN (22:58)
[2019-10-24] MEDS: Guaifenesin DM 100-10/5 ML UDCUP PO SCH ×6 (00:44→22:14)
[2019-10-24] MEDS: Ferrous Sulfate 325 MG TAB PO SCH ×2 (08:23→16:39)
[2019-10-24] MEDS: predniSONE 20 MG TAB PO SCH (08:23)
[2019-10-24] MEDS: Dronedarone HCl 400 MG TAB PO SCH ×2 (08:23→16:40)
[2019-10-24] MEDS: Senokot S 8.6-50 MG TAB PO SCH ×2 (08:24→22:14)
[2019-10-24] MEDS: Apixaban 2.5 MG TAB PO SCH ×2 (08:24→22:15)
[2019-10-24] MEDS: Amoxicillin/Potassium Clav 875 MG TAB PO SCH ×2 (08:24→22:15)
--- NOTE | 2019-10-24 12:43 | PRG ---
DATE OF SERVICE: 10/24/2019 SUBJECTIVE: Ms. Juarez is doing well. OBJECTIVE: VITAL SIGNS: She is afebrile, heart rate in the 60s, blood pressure 142/64. LUNGS: Clear. HEART: Regular rhtyhm. ABDOMEN: Soft. IMPRESSION: 1. Asthma exacerbation, improving. 2. Atrial fibrillation converted back to sinus rhythm with cardioversion. 3. . 4. I have cut her prednisone back to . Job ID: [id number]
--- NOTE | 2019-10-24 14:55 | PDOC.HOSPP ---
- Subjective Encounter Date: 10/24/19 Encounter Time: 14:35 Subjective: f/u for resp failure, Influenza/PNA and A-fib RVR now SR. Feels better overall but has not worked with PT today stating they haven't come by yet. Appetite ok. - Objective Vital Signs & Weight: Vital Signs (12 hours) Temp Pulse Resp BP Pulse Ox 10/24/19 11:37 69 18 10/24/19 11:11 98.2 F 68 19 146/66 H 92 L 10/24/19 08:30 94 L 10/24/19 08:14 64 16 94 L 10/24/19 07:26 98.6 F 62 17 142/64 H 93 L 10/24/19 04:00 97.9 F 80 17 150/71 H 95 Weight Admit Weight 102 lb Weight 98 lb 4.8 oz Most Recent Monitor Data Heart Rate from ECG 74 NIBP 135/67 NIBP BP-Mean 89 Respiration from ECG 25 SpO2 94 I&O: 10/23/19 10/24/19 10/25/19 06:59 06:59 06:59 Intake Total 1030 870 Output Total 1300 800 Balance -270 70 Result Diagrams: 10/20/19 03:26 10/22/19 03:29 Additional Labs: Microbiology 10/15/19 19:40 Stool C. difficile GDH Antigen & Toxins - Final 10/14/19 21:11 Nasopharynx Influenza Types A,B Direct EIA - Final 11/15/18 09:10 Sputum Respiratory Culture - Preliminary 10/14/19 10:34 Venous blood - Right Arm Blood Culture - Preliminary NO GROWTH AT 48 HOURS 10/14/19 10:34 Venous blood - Left Arm Blood Culture - Preliminary NO GROWTH AT 48 HOURS Laboratory Tests 11/13/18 11/14/18 11/14/18 16:31 15:42 15:42 Hgb Iron 13 L TIBC 373 Transferrin 298 Ferritin Troponin I Vitamin B12 468 Folate 6.70 L Free T4 0.91 TSH 3rd Generation 4.8501 10/14/19 10/14/19 10/14/19 09:44 09:44 14:07 Hgb 10.7 L Iron TIBC Transferrin Ferritin Troponin I 0.056 H 0.076 H Vitamin B12 Folate Free T4 TSH 3rd Generation 10/14/19 10/15/19 10/15/19 17:07 03:16 03:16 Hgb Iron 16 L 17 L TIBC Transferrin Ferritin Troponin I 0.038 H Vitamin B12 Folate Free T4 TSH 3rd Generation 10/15/19 10/15/19 10/15/19 03:16 03:16 09:40 Hgb 8.4 L Iron TIBC Transferrin Ferritin 29.91 Troponin I Vitamin B12 Folate Free T4 TSH 3rd Generation 3.6248 10/15/19 09:40 Hgb 8.3 L Iron TIBC Transferrin Ferritin Troponin I Vitamin B12 Folate Free T4 TSH 3rd Generation EKG Reviewed by me: Yes (Tele - SR) Hospitalist ROS - Medication Medications: Active Medications Generic Name Dose Route Start Last Admin Trade Name Freq PRN Reason Stop Dose Admin Acetaminophen 650 mg 10/14/19 15:35 10/20/19 11:49 Tylenol PO 650 mg Q4H PRN Administration Headache/Fever/Mild Pain (1-3) Al Hydroxide/Mg Hydroxide 15 ml 10/20/19 18:20 10/21/19 22:47 Maalox PO 15 ml Q6H PRN Administration INDIGESTION Albuterol/Ipratropium 3 ml 10/16/19 11:54 10/24/19 00:16 Duoneb NEB 3 ml Q4H PRN Administration SOB &/or Wheezing Albuterol/Ipratropium 3 ml 10/17/19 19:00 10/24/19 11:37 Duoneb NEB 3 ml [id number] SANDI Administration Amoxicillin/Clavulanate Potassium 875 mg 10/16/19 21:00 10/24/19 08:24 Augmentin PO 875 mg Q12HR SANDI Administration Apixaban 2.5 mg 10/15/19 21:00 10/24/19 08:24 Eliquis PO 2.5 mg BID SADNI Administration Clonazepam 0.5 mg 10/14/19 21:48 10/23/19 22:58 Klonopin PO 0.5 mg HS PRN Administration Anxiety/Insomnia Diltiazem HCl 120 mg 10/16/19 09:00 10/24/19 08:24 Cardizem Cd PO 120 mg DAILY SANDI Administration Dronedarone 400 mg 10/15/19 08:00 10/24/19 08:23 Multaq PO 400 mg BID-WM SANDI Administration Ferrous Sulfate 325 mg 10/19/19 17:00 10/24/19 08:23 Feosol PO 325 mg BID-WM SANDI Administration Guaifenesin/Dextromethorphan 15 ml 10/19/19 11:30 10/24/19 13:14 Robitussin Dm PO 15 ml Q4H SANID Administration Senna/Docusate Sodium 1 tab 10/22/19 21:00 10/24/19 08:24 Senokot S PO 1 tab BID SANDI Administration Sodium Chloride 10 ml 10/16/19 09:00 10/24/19 08:24 Flush - Normal Saline IVF 10 ml Q12HR SANDI Administration Sodium Chloride 10 ml 10/16/19 07:29 10/21/19 22:51 Flush - Normal Saline IVF 10 ml PRN PRN Administration Saline Flush - Exam General Appearance: NAD, awake alert Eye: PERRL, anicteric sclera ENT: normocephalic atraumatic, no oropharyngeal lesions Neck: supple, symmetric, no JVD, no thyromegaly, no lymphadenopathy Heart: RRR, no gallops, no rubs, normal peripheral pulses Heart - other findings: S1, S2 Respiratory: normal chest expansion, no tachypnea, rhonchi Respiratory - other findings: occasional coarse sound Gastrointestinal: soft, non-tender, non-distended, normal bowel sounds, no palpable masses Extremities: no cyanosis, no clubbing, no edema Skin: normal turgor, no lesions Neurological: cranial nerve grossly intact, no new deficit Musculoskeletal: normal tone, generalized weakness Psychiatric: normal affect, A&O x 3 Hosp A/P (1) Influenza A Code(s): J10.1 - FLU DUE TO OTH IDENT INFLUENZA VIRUS W OTH RESP MANIFEST Status: Acute Plan: s/p Tamiflu, completed therapy (2) Atrial fibrillation with rapid ventricular response Code(s): I48.91 - UNSPECIFIED ATRIAL FIBRILLATION Status: Acute Plan: s/p PARMINDER/CV and return to SR (3) Acute respiratory failure with hypoxia Code(s): J96.01 - ACUTE RESPIRATORY FAILURE WITH HYPOXIA Status: Acute Plan: Improved, PRN O2, Duonebs (4) HTN (hypertension) Code(s): I10 - ESSENTIAL (PRIMARY) HYPERTENSION Status: Chronic Qualifiers: Hypertension type: essential hypertension Qualified Code(s): I10 - Essential (primary) hypertension (5) Physical deconditioning Code(s): R53.81 - OTHER MALAISE Status: Chronic Plan: PT for mobilization and ambulation, HH with PT on d/c - Plan continue antibiotics, PT/OT, perinatal social worker, respiratory therapy, out of bed/ ambulate, DVT proph w/SCDs Stable currently Continue Prednisone Resp precautions d/c OOB with PT Robitussin DM PRN Add FeSO4 325mg BID HH with PT Likely home in 24-48h
[2019-10-25] MEDS ORDERED: Melatonin 3 MG TAB PO PRN (00:18)
[2019-10-25] MEDS: Guaifenesin DM 100-10/5 ML UDCUP PO SCH ×6 (00:32→21:22)
[2019-10-25] MEDS: Dronedarone HCl 400 MG TAB PO SCH ×2 (08:21→17:45)
[2019-10-25] MEDS: Senokot S 8.6-50 MG TAB PO SCH ×2 (08:21→21:23)
[2019-10-25] MEDS: Apixaban 2.5 MG TAB PO SCH ×2 (08:22→21:23)
[2019-10-25] MEDS: predniSONE 20 MG TAB PO SCH (08:22)
[2019-10-25] MEDS: Ferrous Sulfate 325 MG TAB PO SCH ×2 (08:22→17:45)
[2019-10-25] MEDS: Amoxicillin/Potassium Clav 875 MG TAB PO SCH ×2 (08:22→21:23)
--- NOTE | 2019-10-25 09:29 | PDOC.CPN ---
- Subjective Date: 10/25/19 Time: 08:45 Interval history: Ms. Juarez is awake, sitting up in bed, eating breakfast. States her breathing has much improved. Feels good. Walked with PT almost to the desk yesterday, felt like she could have walked further. Anxious to go home. Denies chest pain or tightness, orthopnea, PND, N/V/D. No overnight events on telemetry. - Review of Systems General: denies: fever/chills, weight/appetite/sleep changes, night sweats, fatigue Respiratory: denies: cough, congestion, shortness of breath, exercise intolerance Cardiovascular: denies: chest pain, palpitation, edema, paroxysmal nocturnal dyspnea, orthopnea Gastrointestinal: denies: nausea, vomiting, diarrhea, constipation, abd pain, GI bleeding - Objective Allergies/Adverse Reactions: Allergies Allergy/AdvReac Type Severity Reaction Status Date / Time buspirone Allergy Severe Verified 10/14/19 16:49 Visit Medications: Current Medications Acetaminophen (Tylenol) 650 mg PO Q4H PRN PRN Reason: Headache/Fever/Mild Pain (1-3) Last Admin: 10/20/19 11:49 Dose: 650 mg Al Hydroxide/Mg Hydroxide (Maalox) 15 ml PO Q6H PRN PRN Reason: INDIGESTION Last Admin: 10/21/19 22:47 Dose: 15 ml Albuterol/Ipratropium (Duoneb) 3 ml NEB Q4H PRN PRN Reason: SOB &/or Wheezing Last Admin: 10/24/19 00:16 Dose: 3 ml Albuterol/Ipratropium (Duoneb) 3 ml NEB [id number] SCH Last Admin: 10/25/19 07:27 Dose: 3 ml Amoxicillin/Clavulanate Potassium (Augmentin) 875 mg PO Q12HR [facility] Last Admin: 10/25/19 08:22 Dose: 875 mg Apixaban (Eliquis) 2.5 mg PO BID [facility] Last Admin: 10/25/19 08:22 Dose: 2.5 mg Diltiazem HCl (Cardizem Cd) 120 mg PO DAILY [facility] Last Admin: 10/25/19 08:22 Dose: 120 mg Dronedarone (Multaq) 400 mg PO BID-[facility] Last Admin: 10/25/19 08:21 Dose: 400 mg Ferrous Sulfate (Feosol) 325 mg PO BID-[facility] Last Admin: 10/25/19 08:22 Dose: 325 mg Guaifenesin/Dextromethorphan (Robitussin Dm) 15 ml PO Q4H [facility] Last Admin: 10/25/19 08:21 Dose: 15 ml Melatonin (Melatonin) 3 mg PO HS PRN PRN Reason: Insomnia Ondansetron HCl (Zofran) 4 mg IVP Q6H PRN PRN Reason: Nausea/Vomiting Prednisone (Prednisone) 20 mg PO QAM-[facility] Last Admin: 10/25/19 08:22 Dose: 20 mg Senna/Docusate Sodium (Senokot S) 1 tab PO BID [facility] Last Admin: 10/25/19 08:21 Dose: 1 tab Sodium Chloride (Flush - Normal Saline) 10 ml IVF Q12HR [facility] Last Admin: 10/25/19 08:23 Dose: 10 ml Sodium Chloride (Flush - Normal Saline) 10 ml IVF PRN PRN PRN Reason: Saline Flush Last Admin: 10/21/19 22:51 Dose: 10 ml Vital Signs & Weight: Vital Signs Temp Pulse Resp BP Pulse Ox 10/25/19 08:00 97.7 F 65 18 156/68 H 93 L 10/25/19 07:28 96 10/25/19 07:27 58 L 16 10/25/19 04:00 98.6 F 68 16 136/65 92 L 10/24/19 23:54 98.3 F 69 17 129/63 100 Admit Weight 102 lb Weight 100 lb 4.8 oz - CHADS-VASc Congestive heart failure: 1 Hypertension: 1 Age >75: 2 Female: 1 Risk Score: 5 - Quality Measures Condition: Atrial Fibrillation/Flutter (hx or current) CV meds: Anticoagulant: Yes - Physical Exam General: alert & oriented x3, appears well, no apparent distress HEENT: mucus membranes moist Neck: supple neck, no JVD/HJR Cardiac: regular rate and rhythm, no murmur, S1/S2 Lungs: clear to auscultation, normal breath sounds, no wheeze, rales, rhonchi Neuro: grossly intact Abdomen: active bowel sounds Extremities: no edema Skin: clear - Labs Result Diagrams: 10/25/19 10:04 10/25/19 10:04 Troponin/CKMB CK-MB (CK-2) 1.2 ng/mL (0-6.6) 10/14/19 09:44 Troponin I 0.038 ng/mL (< 0.028) H 10/14/19 17:07 - Telemetry Sinus rhythms and dysrhythmias: sinus rhythm - Assessment/Plan Assessment/Plan: 1. AFib with RVR-sp CV, maintaining SR. ON Multaq, reduced-dose Eliquis ( appropriate for age, weight) 2. Diastolic HF, acute on chronic 3. Mitral regurgitation 4. COPD 5. HTN 6. Iron deficiency anemia-Hgb up to 9.4 this am. Continue oral iron. 7. Influenza A CV stable, maintaining SR. D/C frankel, increase mobilization. Okay to discharge home anytime from our standpoint.
[2019-10-25 10:20] LABS: Hemoglobin 9.4 g/dL (12.0-16.0); Mean Corpuscular Hemoglobin 22.6 pg (27.0-31.0); Mean Platelet Volume 8.8 fL (7.4-10.4); Platelet Count 303 thou/uL (130-400); RBC Distribution Width 23.2 % (11.5-14.5); Red Blood Cell (RBC) Count 4.15 mill/uL (4.20-5.40); White Blood Cell (WBC) Count 16.3 thou/uL (4.8-10.8)
[2019-10-25 10:33] LABS: Anion Gap 8 mmol/L (10-20); BUN (Urea Nitrogen) 13 mg/dL (9.8-20.1); Calc. Creatinine Clearance 49 mL/min (70-130); Calcium 8.3 mg/dL (7.8-10.44); Carbon Dioxide 31 mmol/L (23-31); Chloride 102 mmol/L (98-107); Estimated GFR-MDRD Greater than 90; Glucose 78 mg/dL (83-110); Potassium 4.1 mmol/L (3.5-5.1); Sodium 137 mmol/L (136-145)
[2019-10-25 10:36] LABS: #Basophils 0.1 thou/uL (0.0-0.2); #Lymphocytes 0.7 thou/uL (1.20-3.40); #Monocytes 0.7 thou/uL (0.11-0.59); #Neutrophils 14.8 thou/uL (1.40-6.50); %Basophils 0.5 % (0.0-1.0); %Eosinophils 0.3 % (0.0-10.0); %Lymphocytes 4.2 % (21.0-51.0); %Monocytes 4.1 % (0.0-10.0); Anisocytosis SLIGHT = 6-15 cells (100X) (0-5/hpf); Hypochromia SLIGHT = 6-15 cells (100X) (0-5/hpf); Large Platelets SLIGHT; MDiff Complete? YES; Microcytosis SLIGHT = 6-15 cells (100X) (0-5/hpf); Ovalocytes SLIGHT = 2-5 cells (100X) (0-1/hpf); Platelet Morphology Comment Appears Adequate; Polychromasia SLIGHT = 2-3 cells (100X) (0-2/hpf)
--- NOTE | 2019-10-25 14:05 | PDOC.HOSPP ---
- Subjective Encounter Date: 10/25/19 Encounter Time: 10:30 - Objective Vital Signs & Weight: Vital Signs (12 hours) Temp Pulse Resp BP Pulse Ox 10/25/19 11:21 69 16 10/25/19 11:17 98.3 F 69 14 149/70 H 93 L 10/25/19 08:20 93 L 10/25/19 08:00 97.7 F 65 18 156/68 H 93 L 10/25/19 07:28 96 10/25/19 07:27 58 L 16 10/25/19 04:00 98.6 F 68 16 136/65 92 L Weight Admit Weight 102 lb Weight 100 lb 4.8 oz Most Recent Monitor Data Heart Rate from ECG 74 NIBP 135/67 NIBP BP-Mean 89 Respiration from ECG 25 SpO2 94 I&O: 10/24/19 10/25/19 10/26/19 06:59 06:59 06:59 Intake Total 870 598 Output Total 800 7589 325 Balance 70 -1229 -325 Result Diagrams: 10/25/19 10:04 10/25/19 10:04 Hospitalist ROS - Medication Medications: Active Medications Generic Name Dose Route Start Last Admin Trade Name Freq PRN Reason Stop Dose Admin Acetaminophen 650 mg 10/14/19 15:35 10/20/19 11:49 Tylenol PO 650 mg Q4H PRN Administration Headache/Fever/Mild Pain (1-3) Al Hydroxide/Mg Hydroxide 15 ml 10/20/19 18:20 10/21/19 22:47 Maalox PO 15 ml Q6H PRN Administration INDIGESTION Albuterol/Ipratropium 3 ml 10/16/19 11:54 10/24/19 00:16 Duoneb NEB 3 ml Q4H PRN Administration SOB &/or Wheezing Albuterol/Ipratropium 3 ml 10/17/19 19:00 10/25/19 11:21 Duoneb NEB 3 ml [id number] SANDI Administration Amoxicillin/Clavulanate Potassium 875 mg 10/16/19 21:00 10/25/19 08:22 Augmentin PO 875 mg Q12HR SANDI Administration Apixaban 2.5 mg 10/15/19 21:00 10/25/19 08:22 Eliquis PO 2.5 mg BID SANDI Administration Diltiazem HCl 120 mg 10/16/19 09:00 10/25/19 08:22 Cardizem Cd PO 120 mg DAILY SANDI Administration Dronedarone 400 mg 10/15/19 08:00 10/25/19 08:21 Multaq PO 400 mg BID-WM SANDI Administration Ferrous Sulfate 325 mg 10/19/19 17:00 10/25/19 08:22 Feosol PO 325 mg BID-WM SANDI Administration Guaifenesin/Dextromethorphan 15 ml 10/19/19 11:30 10/25/19 11:44 Robitussin Dm PO 15 ml Q4H SANDI Administration Prednisone 20 mg 10/25/19 08:00 10/25/19 08:22 Prednisone PO 20 mg QAM-WM SANDI Administration Senna/Docusate Sodium 1 tab 10/22/19 21:00 10/25/19 08:21 Senokot S PO 1 tab BID SANDI Administration Sodium Chloride 10 ml 10/16/19 09:00 10/25/19 08:23 Flush - Normal Saline IVF 10 ml Q12HR SANDI Administration Sodium Chloride 10 ml 10/16/19 07:29 10/21/19 22:51 Flush - Normal Saline IVF 10 ml PRN PRN Administration Saline Flush Hosp A/P - Plan Afib w.. RVR -- could be triggered by the flu? -on cadizem gtt---------> weaned off. -TSH nl -s/p PARMINDER/CV and return to SR CAP and coexisting influenza A +ve -CTX and zithro and tamiflu---completed -procalci---insig.. --lorena neg x 48hrs -----> to PO augmentin Abnormal troponin NSTEMI d/t demand ischemia, type II --no ischemic workup - Microcytic anemia Iron deficiency -needs outpt age appropr cscope, if not done in the past. stable Acute blood loss anemia with hgb drop from 10.7 to 8.4 -no etiology -dilutional? -threshold to transfuse <7. DVT ppx - lovenox flonase more ambulation ongoing P.therapy
--- NOTE | 2019-10-25 14:15 | PRG ---
DATE OF SERVICE: 10/25/2019 SUBJECTIVE: She reports that she is breathing better. OBJECTIVE: VITAL SIGNS: On exam, temperature of 98.3, pulse 69, respirations 16, O2 saturation 93% on room air, and blood pressure 149/70. HEENT: Unremarkable. NECK: No adenopathy or JVD. LUNGS: Clear without wheezing or rhonchi. CARDIAC: S1 and S2. Regular. ABDOMEN: Soft. EXTREMITIES: No edema. ASSESSMENT: 1. Stable asthma on nebulization treatments and low-dose steroids. 2. Atrial fibrillation. PLAN: Continue current asthma treatment. Job ID: [id number]
[2019-10-25] MEDS: Fluticasone Propionate Nasal Spray 16 gm Bottle NASAL SCH (21:23)
[2019-10-26] MEDS: Guaifenesin DM 100-10/5 ML UDCUP PO SCH ×6 (01:12→21:02)
--- NOTE | 2019-10-26 08:16 | PDOC.CPN ---
- Subjective Date: 10/26/19 Time: 07:45 Interval history: Ms. Juarez is awake, watching TV. No cardiac complaints, denies SOB, chest pain or tightness. Denies N/V/D. Reports "weak legs", having some trouble ambulating. Worked a small amount with PT yesterday. No overnight events on telemetry. - Review of Systems General: denies: fever/chills, weight/appetite/sleep changes, night sweats, fatigue Respiratory: denies: cough, congestion, shortness of breath, exercise intolerance Cardiovascular: denies: chest pain, palpitation, edema, paroxysmal nocturnal dyspnea, orthopnea Gastrointestinal: denies: nausea, vomiting, diarrhea, constipation, abd pain, GI bleeding Musculoskeletal: reports: stiffness Neurological: reports: weakness - Objective Allergies/Adverse Reactions: Allergies Allergy/AdvReac Type Severity Reaction Status Date / Time buspirone Allergy Severe Verified 10/14/19 16:49 Visit Medications: Current Medications Acetaminophen (Tylenol) 650 mg PO Q4H PRN PRN Reason: Headache/Fever/Mild Pain (1-3) Last Admin: 10/20/19 11:49 Dose: 650 mg Al Hydroxide/Mg Hydroxide (Maalox) 15 ml PO Q6H PRN PRN Reason: INDIGESTION Last Admin: 10/21/19 22:47 Dose: 15 ml Albuterol/Ipratropium (Duoneb) 3 ml NEB Q4H PRN PRN Reason: SOB &/or Wheezing Last Admin: 10/24/19 00:16 Dose: 3 ml Albuterol/Ipratropium (Duoneb) 3 ml NEB [id number] SCH Last Admin: 10/26/19 07:16 Dose: 3 ml Amoxicillin/Clavulanate Potassium (Augmentin) 875 mg PO Q12HR [facility] Last Admin: 10/25/19 21:23 Dose: 875 mg Apixaban (Eliquis) 2.5 mg PO BID [facility] Last Admin: 10/25/19 21:23 Dose: 2.5 mg Diltiazem HCl (Cardizem Cd) 120 mg PO DAILY [facility] Last Admin: 10/25/19 08:22 Dose: 120 mg Dronedarone (Multaq) 400 mg PO BID-[facility] Last Admin: 10/25/19 17:45 Dose: 400 mg Ferrous Sulfate (Feosol) 325 mg PO BID-[facility] Last Admin: 10/25/19 17:45 Dose: 325 mg Fluticasone Propionate (Flonase Nasal [place]) 0 gm NASAL BID [facility] Last Admin: 10/25/19 21:23 Dose: 1 spr Guaifenesin/Dextromethorphan (Robitussin Dm) 15 ml PO Q4H [facility] Last Admin: 10/26/19 04:38 Dose: 15 ml Melatonin (Melatonin) 3 mg PO HS PRN PRN Reason: Insomnia Ondansetron HCl (Zofran) 4 mg IVP Q6H PRN PRN Reason: Nausea/Vomiting Prednisone (Prednisone) 20 mg PO QAM-[facility] Last Admin: 10/25/19 08:22 Dose: 20 mg Senna/Docusate Sodium (Senokot S) 1 tab PO BID [facility] Last Admin: 10/25/19 21:23 Dose: 1 tab Sodium Chloride (Flush - Normal Saline) 10 ml IVF Q12HR [facility] Last Admin: 10/25/19 20:17 Dose: 10 ml Sodium Chloride (Flush - Normal Saline) 10 ml IVF PRN PRN PRN Reason: Saline Flush Last Admin: 10/21/19 22:51 Dose: 10 ml Vital Signs & Weight: Vital Signs Temp Pulse Resp BP Pulse Ox 10/26/19 07:17 97 10/26/19 07:16 57 L 16 10/26/19 04:00 98.3 F 60 18 133/62 95 10/26/19 00:00 97.1 F L 62 15 135/61 95 10/25/19 20:17 72 14 95 Admit Weight 102 lb Weight 101 lb 3.2 oz - CHADS-VASc Congestive heart failure: 1 Hypertension: 1 Age >75: 2 Female: 1 Risk Score: 5 - Quality Measures Condition: Atrial Fibrillation/Flutter (hx or current) CV meds: Beta Saleem: No, NANDO/ARB: No, Statin: No, ASA: No, Plavix/Effient/ Brilinta: No, Anticoagulant: Yes - Medication Contraindications No Beta Saleem reason: Treatment not indicated No NANDO/ARB reason: Treatment not indicated No Statin reason: Treatment not indicated No Antithrombotic reason: Treatment not indicated - Physical Exam General: alert & oriented x3, appears well, no apparent distress HEENT: mucus membranes moist Neck: supple neck, no JVD/HJR Cardiac: regular rate and rhythm, no murmur, S1/S2 Lungs: clear to auscultation, normal breath sounds, no wheeze, rales, rhonchi Neuro: grossly intact Abdomen: unremarkable, active bowel sounds Extremities: no edema Skin: clear - Labs Result Diagrams: 10/25/19 10:04 10/25/19 10:04 Troponin/CKMB CK-MB (CK-2) 1.2 ng/mL (0-6.6) 10/14/19 09:44 Troponin I 0.038 ng/mL (< 0.028) H 10/14/19 17:07 - Telemetry Sinus rhythms and dysrhythmias: sinus rhythm (60s-70s) - Assessment/Plan Assessment/Plan: 1. AFib with RVR-sp CV, maintaining SR. ON Multaq, reduced-dose Eliquis ( appropriate for age, weight) 2. Diastolic HF, acute on chronic 3. Mitral regurgitation 4. COPD 5. HTN 6. Iron deficiency anemia-Hgb improved. Continue oral iron. 7. Influenza A CV stable, maintaining SR. Needs to increase mobilization, PT/Cardiac Rehab. Okay to discharge home anytime from our standpoint.
[2019-10-26] MEDS: Dronedarone HCl 400 MG TAB PO SCH ×2 (08:56→16:45)
[2019-10-26] MEDS: Amoxicillin/Potassium Clav 875 MG TAB PO SCH ×2 (08:56→21:02)
[2019-10-26] MEDS: Ferrous Sulfate 325 MG TAB PO SCH ×2 (08:57→16:45)
[2019-10-26] MEDS: Senokot S 8.6-50 MG TAB PO SCH ×2 (08:57→21:02)
[2019-10-26] MEDS: predniSONE 20 MG TAB PO SCH (08:57)
[2019-10-26] MEDS: Apixaban 2.5 MG TAB PO SCH ×2 (08:58→21:03)
[2019-10-26] MEDS: Fluticasone Propionate Nasal Spray 16 gm Bottle NASAL SCH ×2 (09:54→21:03)
--- NOTE | 2019-10-26 10:30 | RAD ---
EXAM: CHEST ONE VIEW HISTORY: High white blood cell count and cough. COMPARISON: 10/14/2019 FINDINGS: There has been interval development of bilateral pleural effusions. There is patchy increased density seen in the region of the lingula with greater increased parenchymal density at the right lung base which could be related to superimposed pneumonia at each lung base. Mild chronic lung changes ar e seen. Cardiac silhouette and pulmonary vasculature are within normal limits for the portable technique of the study. Calcifications overlie the left upper lung zone which may represent vascular calcifications. No other interval change. IMPRESSION: Bilateral pleural effusions and associated atelectasis. In addition, there are areas of increased opa city at each lung base which may be related to superimposed pneumonia at each lung base. Follow-up to resolution is recommended.
--- NOTE | 2019-10-26 14:35 | PRG ---
DATE OF SERVICE: 10/26/2019 SUBJECTIVE: She is improving. She says she feels like she will be able to go home tomorrow. OBJECTIVE: VITAL SIGNS: Temperature 98, pulse 72, respirations 16, O2 saturation 96%, and blood pressure 130/61. HEENT: Unremarkable. NECK: No adenopathy or JVD. CHEST: Clear without wheezing. CARDIAC: Rhythm is regular without murmur. ABDOMEN: Soft and nontender. EXTREMITIES: No edema. IMAGING: Chest x-ray shows bilateral small pleural effusions. ASSESSMENT: 1. Some degree of congestive heart failure indicative by the pleural effusions. 2. Atrial fibrillation. 3. Asthma. PLAN: For the effusions, I would just recommend gently diuresing her if she becomes symptomatic. Otherwise, watchful waiting is okay. Job ID: [id number]
--- NOTE | 2019-10-26 15:38 | PDOC.HOSPP ---
- Subjective Encounter Date: 10/26/19 Encounter Time: 10:20 Subjective: afebrile, no cough last night, sinus is better. wbcs high - cxr w.. pl effusion - Objective Vital Signs & Weight: Vital Signs (12 hours) Temp Pulse Resp BP BP BP Pulse Ox 10/26/19 11:56 98.0 F 72 16 130/61 96 10/26/19 11:35 161/70 H 157/67 H 10/26/19 11:34 66 16 10/26/19 08:34 97.5 F L 66 14 157/70 H 92 L 10/26/19 07:17 97 10/26/19 07:16 57 L 16 10/26/19 04:00 98.3 F 60 18 133/62 95 Weight Admit Weight 102 lb Weight 101 lb 3.2 oz Most Recent Monitor Data Heart Rate from ECG 74 NIBP 135/67 NIBP BP-Mean 89 Respiration from ECG 25 SpO2 94 I&O: 10/25/19 10/26/19 10/27/19 06:59 06:59 06:59 Intake Total 598 1057 Output Total 1800 325 Balance -1202 732 Result Diagrams: 10/25/19 10:04 10/25/19 10:04 Hospitalist ROS - Medication Medications: Active Medications Generic Name Dose Route Start Last Admin Trade Name Billq PRN Reason Stop Dose Admin Acetaminophen 650 mg 10/14/19 15:35 10/20/19 11:49 Tylenol PO 650 mg Q4H PRN Administration Headache/Fever/Mild Pain (1-3) Al Hydroxide/Mg Hydroxide 15 ml 10/20/19 18:20 10/21/19 22:47 Maalox PO 15 ml Q6H PRN Administration INDIGESTION Albuterol/Ipratropium 3 ml 10/16/19 11:54 10/24/19 00:16 Duoneb NEB 3 ml Q4H PRN Administration SOB &/or Wheezing Albuterol/Ipratropium 3 ml 10/17/19 19:00 10/26/19 11:34 Duoneb NEB 3 ml [id number] SANDI Administration Amoxicillin/Clavulanate Potassium 875 mg 10/16/19 21:00 10/26/19 08:56 Augmentin PO 875 mg Q12HR SANDI Administration Apixaban 2.5 mg 10/15/19 21:00 10/26/19 08:58 Eliquis PO 2.5 mg BID SANDI Administration Diltiazem HCl 120 mg 10/16/19 09:00 10/26/19 08:57 Cardizem Cd PO 120 mg DAILY SANDI Administration Dronedarone 400 mg 10/15/19 08:00 10/26/19 08:56 Multaq PO 400 mg BID-WM SANDI Administration Ferrous Sulfate 325 mg 10/19/19 17:00 10/26/19 08:57 Feosol PO 325 mg BID-WM SANDI Administration Fluticasone Propionate 0 gm 10/25/19 21:00 10/26/19 09:54 Flonase Nasal [place] NASAL 1 spr BID SNADI Administration Guaifenesin/Dextromethorphan 15 ml 10/19/19 11:30 10/26/19 12:47 Robitussin Dm PO 15 ml Q4H SANDI Administration Prednisone 20 mg 10/25/19 08:00 10/26/19 08:57 Prednisone PO 20 mg QAM-WM SANDI Administration Senna/Docusate Sodium 1 tab 10/22/19 21:00 10/26/19 08:57 Senokot S PO 1 tab BID SANDI Administration Sodium Chloride 10 ml 10/16/19 09:00 10/26/19 09:54 Flush - Normal Saline IVF 10 ml Q12HR SANDI Administration Sodium Chloride 10 ml 10/16/19 07:29 10/21/19 22:51 Flush - Normal Saline IVF 10 ml PRN PRN Administration Saline Flush - Exam General Appearance: NAD, awake alert Eye: PERRL ENT: normocephalic atraumatic Neck: supple, symmetric Heart: RRR Respiratory: CTAB, normal chest expansion, no tachypnea Gastrointestinal: soft, non-distended, normal bowel sounds Neurological: cranial nerve grossly intact, no focal deficits Hosp A/P - Plan Afib w.. RVR -- could be triggered by the flu? -on cadizem gtt---------> weaned off. -TSH nl -s/p PARMINDER/CV and return to SR CAP and coexisting influenza A +ve -CTX and zithro and tamiflu---completed -procalci---insig.. --lorena neg x 48hrs -----> to PO augmentin Abnormal troponin NSTEMI d/t demand ischemia, type II --no ischemic workup - Microcytic anemia Iron deficiency -needs outpt age appropr cscope, if not done in the past. stable Acute blood loss anemia with hgb drop from 10.7 to 8.4 -no etiology -dilutional? -threshold to transfuse <7. DVT ppx - lovenox flonase more ambulation ongoing P.therapy Leukocytosis without clinical sn/sxs --stress demargination? --cxr with pleural eff -UA of 20th w.. lorena neg -on augmentin --plan for poss am dc if wbcs trended down --plan to cw augmentin pt has home PT to be arranged.
[2019-10-26 17:26] LABS: Bilirubin Negative (Negative); Blood, Urine 1+ (Negative); Clarity Clear (Clear); Glucose, Urine (Dipstick) 200 mg/dL (Negative); Leukocyte 500 Leu/uL (Negative); Nitrite Negative (Negative); Protein, Urine (Dipstick) 10 mg/dL (Neg-Trace); Squamous Epithelial 0-3 HPF (0-3); Urobilinogen Normal mg/dL (Less than 2); Yeast-Budding 1+ HPF (None Seen)
[2019-10-26 17:33] LABS: Bacteria/HPF None Seen HPF (None Seen); Yeast-Hyphae 1+ HPF (None Seen)
[2019-10-26 17:34] LABS: Urine Culture Reflex Yes Yes
[2019-10-27] MEDS: Guaifenesin DM 100-10/5 ML UDCUP PO SCH ×7 (00:28→23:38)
[2019-10-27 04:43] LABS: #Monocytes 0.5 thou/uL (0.11-0.59); #Neutrophils 8.9 thou/uL (1.40-6.50); %Eosinophils 0.4 % (0.0-10.0); %Lymphocytes 9.1 % (21.0-51.0); %Monocytes 4.9 % (0.0-10.0); %Neutrophils 85.5 % (42.0-75.0); Hemoglobin 8.9 g/dL (12.0-16.0); Mean Corpuscular HGB CONC 31.1 g/dL (32.0-36.0); Mean Corpuscular Hemoglobin 23.2 pg (27.0-31.0); Mean Corpuscular Volume 74.6 fL (78.0-98.0); Mean Platelet Volume 8.5 fL (7.4-10.4); Platelet Count 315 thou/uL (130-400); RBC Distribution Width 23.5 % (11.5-14.5); Red Blood Cell (RBC) Count 3.86 mill/uL (4.20-5.40); White Blood Cell (WBC) Count 10.4 thou/uL (4.8-10.8)
[2019-10-27] MEDS: Fluticasone Propionate Nasal Spray 16 gm Bottle NASAL SCH ×2 (08:45→21:01)
[2019-10-27] MEDS: Ferrous Sulfate 325 MG TAB PO SCH ×2 (08:46→17:32)
[2019-10-27] MEDS: Senokot S 8.6-50 MG TAB PO SCH ×2 (08:46→21:01)
[2019-10-27] MEDS: Apixaban 2.5 MG TAB PO SCH ×2 (08:47→21:00)
[2019-10-27] MEDS: predniSONE 20 MG TAB PO SCH (08:47)
[2019-10-27] MEDS: Dronedarone HCl 400 MG TAB PO SCH ×2 (08:47→17:32)
--- NOTE | 2019-10-27 10:14 | PRG ---
DATE OF SERVICE: 10/27/2019 SUBJECTIVE: Ms. Juarez is doing better. She feels stronger. She is not having any trouble breathing. OBJECTIVE: VITAL SIGNS: Blood pressure 153/70, previously 134/63; pulse is 60, it is regular. LUNGS: Clear. CARDIAC: Normal S1, normal S2. ASSESSMENT: 1. Chronic obstructive pulmonary disease, asthma, markedly improved. 2. Atrial flutter and fibrillation, back in sinus after a transesophageal echo and cardioversion. PLAN: 1. She is on Multaq. 2. She is on diltiazem. 3. We will reduce dose of Eliquis in view of age and weight. 4. She can be discharged home from a cardiac standpoint to see us in the office in 4 to 6 weeks. Job ID: [id number]
[2019-10-27] MEDS ORDERED: Fentanyl 100 MCG/2 ML VIAL ONE (12:56)
--- NOTE | 2019-10-27 19:41 | PRG ---
DATE OF SERVICE: 10/27/2019 SUBJECTIVE: Sadie Juarez denies shortness of breath. She does not feel like her asthma is active. OBJECTIVE: VITAL SIGNS: She is afebrile. Heart rate is 80, respiratory rate 16, oximetry is 94% on room air, and blood pressure 126/59. LUNGS: Clear. HEART: Regular rhythm. ABDOMEN: Soft. IMPRESSION AND PLAN: 1. Asthma, resolved. 2. Atrial fibrillation, now in sinus rhythm. She is stable to go home when she can transfer from the bed to a chair, she is close. Job ID: [id number]
[2019-10-28] MEDS: Guaifenesin DM 100-10/5 ML UDCUP PO SCH ×4 (04:41→14:34)
[2019-10-28 05:06] VITALS: BMI 16.0
[2019-10-28] MEDS: Dronedarone HCl 400 MG TAB PO SCH (07:36)
[2019-10-28] MEDS: predniSONE 20 MG TAB PO SCH (07:36)
[2019-10-28] MEDS: Ferrous Sulfate 325 MG TAB PO SCH (07:37)
[2019-10-28] MEDS: Apixaban 2.5 MG TAB PO SCH (07:37)
[2019-10-28] MEDS: Senokot S 8.6-50 MG TAB PO SCH (07:37)
[2019-10-28] MEDS: Fluticasone Propionate Nasal Spray 16 gm Bottle NASAL SCH (07:37)
[2019-10-28] MEDS ORDERED: Tamsulosin HCl 0.4 MG CAP PO SCH (11:15)
--- NOTE | 2019-10-28 12:13 | PDOC.HOSPP ---
- Subjective Encounter Date: 10/27/19 Encounter Time: 11:00 Subjective: plan for dc - Objective Vital Signs & Weight: Vital Signs (12 hours) Temp Pulse Resp BP Pulse Ox 10/28/19 11:00 98 F 65 16 125/60 98 10/28/19 10:52 69 16 92 L 10/28/19 07:44 96 10/28/19 07:37 67 10/28/19 07:29 98.6 F 67 16 121/58 L 96 10/28/19 06:52 98 10/28/19 06:50 68 16 98 10/28/19 04:00 97.7 F 56 L 18 128/60 95 Weight Admit Weight 102 lb Weight 102 lb 3.2 oz Most Recent Monitor Data Heart Rate from ECG 74 NIBP 135/67 NIBP BP-Mean 89 Respiration from ECG 25 SpO2 94 I&O: 10/27/19 10/28/19 10/29/19 06:59 06:59 06:59 Intake Total 1125 2081 237 Output Total 1275 1175 Balance -150 906 237 Result Diagrams: 10/27/19 04:02 10/25/19 10:04 Hospitalist ROS - Medication Medications: Active Medications Generic Name Dose Route Start Last Admin Trade Name Freq PRN Reason Stop Dose Admin Acetaminophen 650 mg 10/14/19 15:35 10/20/19 11:49 Tylenol PO 650 mg Q4H PRN Administration Headache/Fever/Mild Pain (1-3) Al Hydroxide/Mg Hydroxide 15 ml 10/20/19 18:20 10/21/19 22:47 Maalox PO 15 ml Q6H PRN Administration INDIGESTION Albuterol/Ipratropium 3 ml 10/16/19 11:54 10/24/19 00:16 Duoneb NEB 3 ml Q4H PRN Administration SOB &/or Wheezing Albuterol/Ipratropium 3 ml 10/17/19 19:00 10/28/19 10:52 Duoneb NEB 3 ml [id number] SANDI Administration Apixaban 2.5 mg 10/15/19 21:00 10/28/19 07:37 Eliquis PO 2.5 mg BID SANDI Administration Diltiazem HCl 120 mg 10/16/19 09:00 10/28/19 07:37 Cardizem Cd PO 120 mg DAILY SANDI Administration Dronedarone 400 mg 10/15/19 08:00 10/28/19 07:36 Multaq PO 400 mg BID-WM SANDI Administration Ferrous Sulfate 325 mg 10/19/19 17:00 10/28/19 07:37 Feosol PO 325 mg BID-WM SANDI Administration Fluticasone Propionate 0 gm 10/25/19 21:00 10/28/19 07:37 Flonase Nasal [place] NASAL 1 spr BID SANDI Administration Guaifenesin/Dextromethorphan 15 ml 10/19/19 11:30 10/28/19 11:04 Robitussin Dm PO 15 ml Q4H SANDI Administration Prednisone 20 mg 10/25/19 08:00 10/28/19 07:36 Prednisone PO 20 mg QAM-WM SANDI Administration Senna/Docusate Sodium 1 tab 10/22/19 21:00 10/28/19 07:37 Senokot S PO 1 tab BID SANDI Administration Sodium Chloride 10 ml 10/16/19 09:00 10/28/19 07:38 Flush - Normal Saline IVF 10 ml Q12HR SANDI Administration Sodium Chloride 10 ml 10/16/19 07:29 10/21/19 22:51 Flush - Normal Saline IVF 10 ml PRN PRN Administration Saline Flush Tamsulosin HCl 0.4 mg 10/28/19 11:15 10/28/19 11:53 Flomax PO 10/28/19 13:15 0.4 mg NOW SANDI Administration Hosp A/P - Plan Afib w.. RVR -- could be triggered by the flu? -on cadizem gtt---------> weaned off. -TSH nl -s/p PARMINDER/CV and return to SR CAP and coexisting influenza A +ve -CTX and zithro and tamiflu---completed -procalci---insig.. --lorena neg x 48hrs -----> to PO augmentin Abnormal troponin NSTEMI d/t demand ischemia, type II --no ischemic workup - Microcytic anemia Iron deficiency -needs outpt age appropr cscope, if not done in the past. stable Acute blood loss anemia with hgb drop from 10.7 to 8.4 -no etiology -dilutional? -threshold to transfuse <7. DVT ppx - lovenox flonase more ambulation ongoing P.therapy Leukocytosis without clinical sn/sxs --stress demargination? --cxr with pleural eff -UA of w.. lorena neg -on augmentin --plan for poss am dc if wbcs trended down --plan to cw augmentin pt has home PT to be arranged. dc orders done on - voiding trial failed late around 6pm --replaced the frankel.
--- NOTE | 2019-10-28 12:15 | PDOC.HOSPP ---
- Subjective Encounter Date: 10/28/19 Encounter Time: 09:00 Subjective: going home today - Objective Vital Signs & Weight: Vital Signs (12 hours) Temp Pulse Resp BP Pulse Ox 10/28/19 11:00 98 F 65 16 125/60 98 10/28/19 10:52 69 16 92 L 10/28/19 07:44 96 10/28/19 07:37 67 10/28/19 07:29 98.6 F 67 16 121/58 L 96 10/28/19 06:52 98 10/28/19 06:50 68 16 98 10/28/19 04:00 97.7 F 56 L 18 128/60 95 Weight Admit Weight 102 lb Weight 102 lb 3.2 oz Most Recent Monitor Data Heart Rate from ECG 74 NIBP 135/67 NIBP BP-Mean 89 Respiration from ECG 25 SpO2 94 I&O: 10/27/19 10/28/19 10/29/19 06:59 06:59 06:59 Intake Total 1125 2081 237 Output Total 1275 1175 Balance -150 906 237 Result Diagrams: 10/27/19 04:02 10/25/19 10:04 Hospitalist ROS - Medication Medications: Active Medications Generic Name Dose Route Start Last Admin Trade Name Freq PRN Reason Stop Dose Admin Acetaminophen 650 mg 10/14/19 15:35 10/20/19 11:49 Tylenol PO 650 mg Q4H PRN Administration Headache/Fever/Mild Pain (1-3) Al Hydroxide/Mg Hydroxide 15 ml 10/20/19 18:20 10/21/19 22:47 Maalox PO 15 ml Q6H PRN Administration INDIGESTION Albuterol/Ipratropium 3 ml 10/16/19 11:54 10/24/19 00:16 Duoneb NEB 3 ml Q4H PRN Administration SOB &/or Wheezing Albuterol/Ipratropium 3 ml 10/17/19 19:00 10/28/19 10:52 Duoneb NEB 3 ml [id number] SANDI Administration Apixaban 2.5 mg 10/15/19 21:00 10/28/19 07:37 Eliquis PO 2.5 mg BID ASNDI Administration Diltiazem HCl 120 mg 10/16/19 09:00 10/28/19 07:37 Cardizem Cd PO 120 mg DAILY SANDI Administration Dronedarone 400 mg 10/15/19 08:00 10/28/19 07:36 Multaq PO 400 mg BID-WM SANDI Administration Ferrous Sulfate 325 mg 10/19/19 17:00 10/28/19 07:37 Feosol PO 325 mg BID-WM SANDI Administration Fluticasone Propionate 0 gm 10/25/19 21:00 10/28/19 07:37 Flonase Nasal [place] NASAL 1 spr BID SANDI Administration Guaifenesin/Dextromethorphan 15 ml 10/19/19 11:30 10/28/19 11:04 Robitussin Dm PO 15 ml Q4H SANDI Administration Prednisone 20 mg 10/25/19 08:00 10/28/19 07:36 Prednisone PO 20 mg QAM-WM SANDI Administration Senna/Docusate Sodium 1 tab 10/22/19 21:00 10/28/19 07:37 Senokot S PO 1 tab BID SANDI Administration Sodium Chloride 10 ml 10/16/19 09:00 10/28/19 07:38 Flush - Normal Saline IVF 10 ml Q12HR SANDI Administration Sodium Chloride 10 ml 10/16/19 07:29 10/21/19 22:51 Flush - Normal Saline IVF 10 ml PRN PRN Administration Saline Flush Tamsulosin HCl 0.4 mg 10/28/19 11:15 10/28/19 11:53 Flomax PO 10/28/19 13:15 0.4 mg NOW SANDI Administration Hosp A/P - Plan Afib w.. RVR -- could be triggered by the flu? -on cadizem gtt---------> weaned off. -TSH nl -s/p PARMINDER/CV and return to SR CAP and coexisting influenza A +ve -CTX and zithro and tamiflu---completed -procalci---insig.. --lorena neg x 48hrs -----> to PO augmentin Abnormal troponin NSTEMI d/t demand ischemia, type II --no ischemic workup - Microcytic anemia Iron deficiency -needs outpt age appropr cscope, if not done in the past. stable Acute blood loss anemia with hgb drop from 10.7 to 8.4 -no etiology -dilutional? -threshold to transfuse <7. DVT ppx - lovenox flonase more ambulation ongoing P.therapy Leukocytosis without clinical sn/sxs --stress demargination? --cxr with pleural eff -UA of w.. lorena neg -on augmentin --plan for poss am dc if wbcs trended down --plan to cw augmentin pt has home PT to be arranged. dc orders done on - voiding trial failed late around 6pm --replaced the frankel. dc summary dictated urine retention -- replaced the frankel talked to DR. Jensen, fw in 1 week flomax prescribed.
--- NOTE | 2019-10-28 12:31 | DIS ---
DATE OF ADMISSION: 10/14/2019 DATE OF DISCHARGE: 10/28/2019 DISCHARGE DIAGNOSES: 1. Atrial fibrillation with rapid ventricular response, probably triggered by pulmonary dysfunction with flu as well as community-acquired pneumonia. 2. Influenza A positive. 3. Community-acquired pneumonia. 4. Abnormal troponin/[id number] myocardial infarction due to demand ischemia type 2. 5. Microcytic anemia as well as iron deficiency anemia. 6. Leukocytosis. DISCHARGE MEDICATIONS: 1. Eliquis 2.5 mg twice a day. 2. Cardizem 120 mg daily. 3. Multaq 400 mg twice a day. 4. Iron sulfate 325 mg daily. 5. Clonazepam 0.5 mg as needed. 6. Ferrous sulfate 325 mg twice a day. PHYSICAL EXAMINATION: VITAL SIGNS: On the day of discharge, she is afebrile. Her white count is reduced. She has no complaints. I talked to Cardiology and they cleared her today for discharge. She is agreeable with the discharge plan. She has home physical therapy. CARDIOVASCULAR: Regular rate and rhythm without murmurs, rubs, or gallops. LUNGS: Clear to auscultation bilaterally without wheezing, rales, or rhonchi. ABDOMEN: Soft, nontender, and nondistended with good bowel sounds. EXTREMITIES: Without any pitting edema. HOSPITAL COURSE: An 84-year-old female with a history of atrial fibrillation, hypertension, presented with palpitations and heart rate in the 150s on admission and found to be on atrial fibrillation with RVR. She is also positive for influenza A, as well as chest x-ray with early pneumonia. She completed the course of Tamiflu. Continued with ceftriaxone and Zithromax. She had elevated abnormal troponin, which was thought to be due to metabolic mismatch secondary to pulmonary dysfunction. Her procalcitonin was at insignificant level. Cultures were negative for 48 hours. Then, de-escalated the IV antibiotics to Augmentin and she completed a 10-day course. She did have acute blood loss anemia with a hemoglobin drop from 10.7 to 8.4, probably due to dilutional and she did not require any transfusion during her stay. Cardiac jackson, she is improved and her rate is controlled with both Multaq as well as Cardizem. She is on Eliquis and appropriately dosed based on her age and weight. She is expected to follow with Cardiology, Dr. Joseph in 2 to 4 weeks. DISCHARGE INSTRUCTION: Activity: As tolerated. Healthy heart diet. Follow up with Dr. Joseph in 2 to 4 weeks. Follow up with the primary care physician in one week. Discharge time took over 30 minutes. Job ID: [id number] MTDD
[2019-10-28 13:57] VITALS: BP 122/56; TEMP 98.3
--- NOTE | 2019-10-28 18:42 | PRG ---
DATE OF SERVICE: 10/28/2019 SUBJECTIVE: Ms. Juarez is doing well today. She says she feels strong enough to get into a chair and feels safe going home. OBJECTIVE: VITAL SIGNS: Have been stable. LUNGS: Clear. HEART: Regular rhythm. ABDOMEN: Soft. IMPRESSION AND PLAN: 1. Asthma exacerbation, resolved. She is on 2-week prednisone taper. 2. Atrial fibrillation, status post cardioversion to sinus rhythm, clinically stable. 3. Weakness and deconditioning. prior to this admission likely mostly related to depression after loss of her . We will continue to see her back in the office in 3 weeks. Job ID: [id number]
[2019-10-29] MEDS ORDERED: Tamsulosin HCl 0.4 MG CAP PO SCH (09:00)
== END 2019-10-28 15:06 | disposition home health service (06) | DRG 280 ==
LOC: ERS 09:02 → IMCU/EMU 14:00 → 2NO 10-22 16:25
PROVIDERS: ADMIT Internal Medicine; ATTEND Family Medicine
PROC: 5A2204Z Restoration of Cardiac Rhythm, Single (ICD-10-PCS; principal; 2019-10-21)
PROC: B24BZZ4 Ultrasonography of Heart with Aorta, Transesophageal (ICD-10-PCS; 2019-10-21)
DX: I48.0 Paroxysmal atrial fibrillation (principal); I21.A1 Myocardial infarction type 2; J96.01 Acute respiratory failure with hypoxia; J10.08 Influenza due to other identified influenza virus with other specified pneumonia; I50.33 Acute on chronic diastolic (congestive) heart failure; D62 Acute posthemorrhagic anemia; J45.901 Unspecified asthma with (acute) exacerbation; E46 Unspecified protein-calorie malnutrition; Z68.1 Body mass index [BMI] 19.9 or less, adult; J47.0 Bronchiectasis with acute lower respiratory infection; F41.9 Anxiety disorder, unspecified; D50.9 Iron deficiency anemia, unspecified; I11.0 Hypertensive heart disease with heart failure; I05.1 Rheumatic mitral insufficiency; I48.92 Unspecified atrial flutter; D64.9 Anemia, unspecified; F32.9 Major depressive disorder, single episode, unspecified; Z79.01 Long term (current) use of anticoagulants
CPT/HCPCS: 36415; 71045; 80048; 80053; 81001; 82550; 82553; 82728; 83540; 83550; 83605; 83690; 83880; 84145; 84443; 84484; 85014; 85018; 85025; 85049; 85060; 87040; 87086; 87324; 87449; 87804; 92960; 93005; 93010; 93306; 93312; 94640; 96361; 96365; 96366; 96368; 96375; 96376; J0456; J0696; J1650; J2704; J2916; J2920; J3010; J3490; J7050; J7512; J7620

== ENCOUNTER 2020-08-30 12:32 | Emergency (ER) | payer MEDICARE, BC ==
[2020-08-30] MEDS ORDERED: Dexamethasone 4 mg/ml Vial ONE (13:25)
[2020-08-30 13:39] LABS: Bacteria/HPF 4+ HPF (None Seen); Bilirubin Negative (Negative); Blood, Urine Negative (Negative); Clarity Turbid (Clear); Glucose, Urine (Dipstick) Normal (Negative); Ketone, Urine Negative (Negative); Leukocyte 250 Leu/uL (Negative); Nitrite 2+ (Negative); Protein, Urine (Dipstick) 30 mg/dL (Neg-Trace); RBC/HPF None Seen HPF (0-3); Specific Gravity, Urine 1.023 (1.002-1.036); Squamous Epithelial None Seen HPF (0-3); Urobilinogen Normal mg/dL (Less than 2)
--- NOTE | 2020-08-30 13:42 | RAD ---
RADIOGRAPH CHEST 1 VIEW: DATE: 08/30/2020 TIME: 1:26 PM HISTORY: 84-year-old female with dyspnea, cough, and fever. COMPARISON: 10/26/2019 and 10/15/2019 FINDINGS: There are reticulonodular infiltrates in the right lower lung zone that were not present on 10/15/2019 . The right base was obscured by a moderately large consolidation on 10/26/2019. There are reticulonodular infiltrates throughout the left mid and lower lung zones. Somewhat similar infiltrates were present in that location on the prior studies as well. No cardiomegaly. No pneumothorax. Mild, tiny nodular densities in bilateral upper lung zones, new or worse since prior studies. IMPRESSION: Right lower lung zone and left mid and lower lung zone reticulonodular infiltrates suspicious for pne umonia. Recommend follow-up.
[2020-08-30 13:51] LABS: #Basophils 0.1 thou/uL (0.0-0.2); #Lymphocytes 0.8 thou/uL (1.20-3.40); #Monocytes 0.5 thou/uL (0.11-0.59); #Neutrophils 6.3 thou/uL (1.40-6.50); %Basophils 1.2 % (0.0-1.0); %Eosinophils 0.1 % (0.0-10.0); %Lymphocytes 10.5 % (21.0-51.0); %Monocytes 6.5 % (0.0-10.0); %Neutrophils 81.6 % (42.0-75.0); Hemoglobin 12.6 g/dL (12.0-16.0); Mean Corpuscular HGB CONC 32.2 g/dL (32.0-36.0); Mean Corpuscular Hemoglobin 27.6 pg (27.0-31.0); Mean Corpuscular Volume 85.8 fL (78.0-98.0); Mean Platelet Volume 7.2 fL (7.4-10.4); Platelet Count 199 thou/uL (130-400); RBC Distribution Width 13.2 % (11.5-14.5); Red Blood Cell (RBC) Count 4.55 mill/uL (4.20-5.40); White Blood Cell (WBC) Count 7.7 thou/uL (4.8-10.8)
[2020-08-30] MEDS ORDERED: cefTRIAXone\\ROCEPHIN 1 GM VIAL ONE (14:10)
[2020-08-30 14:25] LABS: ALT (SGPT) 13 U/L (8-55); AST (SGOT) 26 U/L (5-34); Albumin 2.9 g/dL (3.4-4.8); Alkaline Phosphatase 57 U/L (40-110); Anion Gap 14 mmol/L (10-20); BUN (Urea Nitrogen) 10 mg/dL (9.8-20.1); Bilirubin, Total 0.4 mg/dL (0.2-1.2); Calc. Creatinine Clearance 0 mL/min (70-130); Calcium 7.7 mg/dL (7.8-10.44); Carbon Dioxide 22 mmol/L (23-31); Chloride 103 mmol/L (98-107); Globulin 3.6 g/dL (2.4-3.5); Glucose 100 mg/dL (83-110); Protein, Total 6.5 g/dL (6.0-8.3); Sodium 135 mmol/L (136-145)
[2020-08-30 18:07] LABS: SARS-CoV-2 MS2 Positive; SARS-CoV-2 N Gene Positive; SARS-CoV-2 S Gene Positive; SARS-CoV-2 by NAA DETECTED (NotDetected); SARS-CoV-2 orf1ab Positive
== END 2020-08-30 16:25 | disposition home or self-care (01) ==
LOC: ERS 12:32
DX: U07.1 COVID-19 (principal); J12.89 Other viral pneumonia; N39.0 Urinary tract infection, site not specified; F41.9 Anxiety disorder, unspecified; F32.9 Major depressive disorder, single episode, unspecified; Z79.899 Other long term (current) drug therapy
CPT/HCPCS: 51701; 71045; 80053; 84484; 85025; 87040; 87077; 87086; 87186; 87804 ×2; 93005; 96365; 96375; 99285; U0003; 36415; 81003; 81015; 87635; J0696; J1100

== ENCOUNTER 2020-10-04 06:49 | Outpatient (CLI) | payer MEDICARE, BC ==
[2020-10-04 11:57] LABS: Anion Gap 13 mmol/L (10-20); BUN (Urea Nitrogen) 7 mg/dL (9.8-20.1); Calc. Creatinine Clearance 0 mL/min (70-130); Calcium 8.3 mg/dL (7.8-10.44); Carbon Dioxide 24 mmol/L (23-31); Chloride 104 mmol/L (98-107); Glucose 135 mg/dL (83-110); Potassium 4.1 mmol/L (3.5-5.1); Sodium 137 mmol/L (136-145)
[2020-10-04 12:00] LABS: #Basophils 0.1 10x3/uL (0.0-0.2); #Eosinphils 0.1 10x3/uL (0.0-0.5); #Monocytes 0.5 10x3/uL (0.0-1.1); #Neutrophils 4.4 10x3/uL (1.5-8.4); %Basophils 0.8 % (0.0-2.0); %Eosinophils 1.3 % (0.0-6.0); %Lymphocytes 19.3 % (18.0-47.0); %Neutrophils 70.3 % (40.0-75.0); Hemoglobin 12.3 g/dL (12.0-16.0); Mean Corpuscular HGB CONC 30.8 G/DL (32.0-36.0); Mean Corpuscular Hemoglobin 26.7 PG (27.0-33.0); Mean Corpuscular Volume 86.7 fl (80.0-100.0); Mean Platelet Volume 8.9 fl (7.4-10.4); Platelet Count 328 10x3/uL (130-400); RBC Distribution Width 14.5 % (11.5-14.5); White Blood Cell (WBC) Count 6.3 10x3/uL (4.5-11.0)
[2020-10-05 05:28] LABS: SARS-CoV-2 PCR by NAA Not Detected (NotDetected)
== END 2020-10-04 06:50 | disposition home or self-care (01) ==
LOC: LABBT 06:49
PROVIDERS: ATTEND Internal Medicine Cardiovascular Disease
DX: Z01.818 Encounter for other preprocedural examination (principal); Z20.822 Contact with and (suspected) exposure to COVID-19
CPT/HCPCS: 80048; 85025; U0003; U0005; 87635

== ENCOUNTER 2020-10-07 07:46 | Day surgery (SDC) | payer MEDICARE, BC ==
[2020-10-04 12:23] VITALS: BMI 15.6
--- NOTE | 2020-10-07 08:39 | PRG ---
DATE OF SERVICE: 10/07/2020 Ms. Juarez is brought here for cardioversion, but she was found to be in sinus rhythm and sinus bradycardia. The patient was started on digoxin a couple of weeks ago. She said about a week ago, she started feeling much better. EKG revealed sinus bradycardia, first-degree AV block, WA interval is 0.23, heart rate 58. We will reduce digoxin 0.125 mg three days a week. See us in the office in 3 or 4 weeks. I do not think she is a candidate for Amiodarone. She is already wheezing. She has longstanding asthma. May need to reconsider whether she may be a potential candidate for an ablation procedure. Job ID: [id number]
--- NOTE | 2020-10-15 13:44 | EKG ---
Test Reason : PREOP CARDIOVERSION Blood Pressure : / mmHG Vent. Rate : 058 BPM Atrial Rate : 058 BPM P-R Int : 232 ms QRS Dur : 090 ms QT Int : 440 ms P-R-T Axes : 083 -59 059 degrees QTc Int : 431 ms Sinus bradycardia with 1st degree A-V block Left anterior fascicular block Septal infarct (cited on or before 30-AUG-2020) Abnormal ECG When compared with ECG of 30-AUG-2020 12:49, Premature atrial complexes are no longer Present MN interval has increased Nonspecific T wave abnormality, improved in Anterolateral leads QT has shortened Confirmed by DR. Ursula BOOTHE ([id number]) on 10/15/2020 1:44:19 PM Referred By: SHYANN Confirmed By:DR. Ursula BOOTHE
== END 2020-10-07 08:38 | disposition home or self-care (01) ==
LOC: CCL 07:46
PROVIDERS: ATTEND Internal Medicine Cardiovascular Disease
DX: I44.0 Atrioventricular block, first degree (principal); R00.1 Bradycardia, unspecified; I48.4 Atypical atrial flutter; D50.9 Iron deficiency anemia, unspecified; I34.0 Nonrheumatic mitral (valve) insufficiency; I10 Essential (primary) hypertension; J45.909 Unspecified asthma, uncomplicated; Z86.16 Personal history of COVID-19; Z79.01 Long term (current) use of anticoagulants; Z79.899 Other long term (current) drug therapy; Z88.8 Allergy status to other drugs, medicaments and biological substances
CPT/HCPCS: 93005; 93010

== ENCOUNTER 2022-06-27 12:24 | Inpatient (IN) | payer MEDICARE, BC ==
[2022-06-27] MEDS ORDERED: Digoxin 0.5 MG/2 ML AMP ONE (12:46)
[2022-06-27 13:05] LABS: #Eosinphils 0.4 thou/uL (0.0-0.7); #Monocytes 0.5 thou/uL (0.11-0.59); #Neutrophils 4.8 thou/uL (1.40-6.50); %Basophils 0.7 % (0.0-1.0); %Eosinophils 5.3 % (0.0-10.0); %Monocytes 7.1 % (0.0-10.0); %Neutrophils 71.9 % (42.0-75.0); Hemoglobin 11.7 g/dL (12.0-16.0); Mean Corpuscular HGB CONC 30.6 g/dL (32.0-36.0); Mean Corpuscular Hemoglobin 28.5 pg (27.0-31.0); Mean Platelet Volume 7.1 fL (7.4-10.4); Platelet Count 307 thou/uL (130-400); RBC Distribution Width 13.4 % (11.5-14.5); White Blood Cell (WBC) Count 6.7 thou/uL (4.8-10.8)
[2022-06-27] MEDS ORDERED: Diltiazem 125 MG/25 ML ONE (13:26)
[2022-06-27 13:31] LABS: ALT (SGPT) 15 U/L (8-55); AST (SGOT) 25 U/L (5-34); Albumin 3.4 g/dL (3.4-4.8); Alkaline Phosphatase 59 U/L (40-110); Anion Gap 10 mmol/L (10-20); BUN (Urea Nitrogen) 16 mg/dL (9.8-20.1); Bilirubin, Total 0.4 mg/dL (0.2-1.2); Calc. Creatinine Clearance 0 mL/min (70-130); Calcium 8.8 mg/dL (7.8-10.44); Carbon Dioxide 30 mmol/L (23-31); Chloride 104 mmol/L (98-107); Digoxin Less than 0.15 ng/mL (0.8-2.0); Estimated GFR 81; Globulin 3.5 g/dL (2.4-3.5); Glucose 108 mg/dL (83-110); Magnesium 2.1 mg/dL (1.6-2.6); Potassium 4.5 mmol/L (3.5-5.1); Protein, Total 6.9 g/dL (5.8-8.1); Sodium 139 mmol/L (136-145)
[2022-06-27 17:10] LABS: Troponin I Less than 0.010 ng/mL (< 0.028)
[2022-06-27] MEDS ORDERED: Senokot S 8.6-50 MG TAB PO PRN (17:35)
[2022-06-27] MEDS ORDERED: Acetaminophen 650 MG Suppository PR PRN (17:35)
[2022-06-27] MEDS ORDERED: Ondansetron ODT 4 MG TAB PO PRN (17:35)
[2022-06-27] MEDS ORDERED: Bisacodyl 5 MG TAB PO PRN (17:35)
[2022-06-27 19:31] LABS: Troponin I 0.017 ng/mL (< 0.028)
[2022-06-27] MEDS: Apixaban 2.5 MG TAB PO SCH (20:50)
[2022-06-27] MEDS: Acetaminophen 325 MG TAB PO PRN (20:50)
[2022-06-27] MEDS: Diltiazem 125 MG in Sodium Chloride 0.9% 100 ML IVPB SCH (21:15)
[2022-06-28 04:03] LABS: #Eosinphils 0.3 thou/uL (0.0-0.7); #Lymphocytes 1.3 thou/uL (1.20-3.40); #Monocytes 0.5 thou/uL (0.11-0.59); #Neutrophils 5.5 thou/uL (1.40-6.50); %Basophils 0.4 % (0.0-1.0); %Eosinophils 4.1 % (0.0-10.0); %Lymphocytes 17.2 % (21.0-51.0); %Monocytes 6.8 % (0.0-10.0); %Neutrophils 71.4 % (42.0-75.0); Hemoglobin 11.3 g/dL (12.0-16.0); Mean Corpuscular HGB CONC 30.5 g/dL (32.0-36.0); Mean Corpuscular Hemoglobin 28.4 pg (27.0-31.0); Mean Corpuscular Volume 93.2 fl (78.0-98.0); Platelet Count 245 thou/uL (130-400); RBC Distribution Width 13.4 % (11.5-14.5); Red Blood Cell (RBC) Count 3.98 mill/uL (4.20-5.40); White Blood Cell (WBC) Count 7.7 thou/uL (4.8-10.8)
[2022-06-28 04:56] LABS: Anion Gap 11 mmol/L (10-20); BUN (Urea Nitrogen) 10 mg/dL (9.8-20.1); Calc. Creatinine Clearance 42 mL/min (70-130); Calcium 8.6 mg/dL (7.8-10.44); Carbon Dioxide 24 mmol/L (23-31); Chloride 108 mmol/L (98-107); Estimated GFR 86; Glucose 116 mg/dL (83-110); Potassium 4.3 mmol/L (3.5-5.1); Sodium 139 mmol/L (136-145)
[2022-06-28] MEDS: Apixaban 2.5 MG TAB PO SCH ×2 (08:16→21:46)
[2022-06-28] MEDS: Digoxin 0.125 MG TAB PO SCH (08:16)
[2022-06-28] MEDS: Dronedarone HCl 400 MG TAB PO SCH ×2 (08:16→16:26)
[2022-06-28] MEDS ORDERED: FLU VACC QS2022-23(65YR UP)/PF 240 MCG/0.7 ML SYRINGE IM ONE (09:00)
[2022-06-28] MEDS ORDERED: Iopamidol-370 76% 500 ML 1 ML ONE (09:51)
[2022-06-28] MEDS: Diltiazem 125 MG in Sodium Chloride 0.9% 100 ML IVPB SCH ×2 (13:11→21:46)
[2022-06-28] MEDS ORDERED: Empagliflozin 10 MG TAB PO SCH (13:15)
[2022-06-28] MEDS ORDERED: Spironolactone 25 MG TAB PO SCH (13:15)
[2022-06-28] MEDS ORDERED: Furosemide 20 MG/2 ML VIAL SLOW IVP SCH (13:15)
[2022-06-28] MEDS: Budesonide 0.25 MG/2 ML NEB INH SCH (18:57)
[2022-06-29 04:12] LABS: #Lymphocytes 0.9 thou/uL (1.20-3.40); #Monocytes 0.6 thou/uL (0.11-0.59); #Neutrophils 6.6 thou/uL (1.40-6.50); %Basophils 0.4 % (0.0-1.0); %Eosinophils 0.3 % (0.0-10.0); %Lymphocytes 10.9 % (21.0-51.0); %Neutrophils 81.4 % (42.0-75.0); Mean Corpuscular HGB CONC 32.1 g/dL (32.0-36.0); Mean Corpuscular Hemoglobin 29.3 pg (27.0-31.0); Mean Corpuscular Volume 91.4 fl (78.0-98.0); Mean Platelet Volume 6.9 fL (7.4-10.4); Platelet Count 319 thou/uL (130-400); RBC Distribution Width 13.3 % (11.5-14.5); Red Blood Cell (RBC) Count 3.75 mill/uL (4.20-5.40); White Blood Cell (WBC) Count 8.1 thou/uL (4.8-10.8)
[2022-06-29 04:22] LABS: Phosphorus 3.7 mg/dL (2.3-4.7)
[2022-06-29 04:38] LABS: ALT (SGPT) 10 U/L (8-55); AST (SGOT) 12 U/L (5-34); Alkaline Phosphatase 44 U/L (40-110); Anion Gap 12 mmol/L (10-20); BUN (Urea Nitrogen) 10 mg/dL (9.8-20.1); Bilirubin, Total 0.9 mg/dL (0.2-1.2); Calc. Creatinine Clearance 39 mL/min (70-130); Calcium 8.9 mg/dL (7.8-10.44); Carbon Dioxide 28 mmol/L (23-31); Chloride 101 mmol/L (98-107); Estimated GFR 83; Globulin 3.2 g/dL (2.4-3.5); Glucose 93 mg/dL (83-110); Magnesium 1.9 mg/dL (1.6-2.6); Potassium 3.8 mmol/L (3.5-5.1); Protein, Total 6.2 g/dL (5.8-8.1); Sodium 137 mmol/L (136-145)
[2022-06-29] MEDS ORDERED: PROPOFOL 20 ML ONE (07:10)
[2022-06-29] MEDS: Budesonide 0.25 MG/2 ML NEB INH SCH ×2 (07:32→19:44)
[2022-06-29] MEDS ORDERED: Promethazine HCl 25 MG/ML VIAL IVPB PRN (08:24)
[2022-06-29] MEDS ORDERED: Ondansetron HCl/PF 4 MG/2 ML Vial IVP PRN (08:24)
[2022-06-29] MEDS ORDERED: Promethazine HCl 25 MG/ML VIAL IM PRN (08:24)
[2022-06-29] MEDS ORDERED: Digoxin 0.5 MG/2 ML AMP SLOW IVP SCH ×2 (08:30→12:00)
[2022-06-29] MEDS: Digoxin 0.125 MG TAB PO SCH (09:31)
[2022-06-29] MEDS: Apixaban 2.5 MG TAB PO SCH ×2 (09:31→20:34)
[2022-06-29] MEDS: Spironolactone 25 MG TAB PO SCH (09:39)
[2022-06-29] MEDS: Dronedarone HCl 400 MG TAB PO SCH (09:50)
[2022-06-29 14:37] VITALS: BMI 14.5
[2022-06-29] MEDS: Mometasone 100 MCG/Formoterol 5 MCG 120 PUFF INHALER INH SCH (19:44)
[2022-06-30 04:04] LABS: #Basophils 0.1 thou/uL (0.0-0.2); #Eosinphils 0.2 thou/uL (0.0-0.7); #Lymphocytes 0.8 thou/uL (1.20-3.40); #Monocytes 0.7 thou/uL (0.11-0.59); #Neutrophils 5.1 thou/uL (1.40-6.50); %Basophils 0.8 % (0.0-1.0); %Eosinophils 3.1 % (0.0-10.0); %Lymphocytes 11.8 % (21.0-51.0); %Monocytes 10.1 % (0.0-10.0); %Neutrophils 74.2 % (42.0-75.0); Hemoglobin 11.3 g/dL (12.0-16.0); Mean Corpuscular HGB CONC 30.7 g/dL (32.0-36.0); Mean Corpuscular Hemoglobin 27.8 pg (27.0-31.0); Mean Corpuscular Volume 90.6 fl (78.0-98.0); Mean Platelet Volume 6.8 fL (7.4-10.4); Platelet Count 345 thou/uL (130-400); RBC Distribution Width 13.3 % (11.5-14.5); Red Blood Cell (RBC) Count 4.05 mill/uL (4.20-5.40); White Blood Cell (WBC) Count 6.8 thou/uL (4.8-10.8)
[2022-06-30 04:28] LABS: ALT (SGPT) 12 U/L (8-55); AST (SGOT) 22 U/L (5-34); Albumin 2.9 g/dL (3.4-4.8); Alkaline Phosphatase 49 U/L (40-110); Anion Gap 13 mmol/L (10-20); BUN (Urea Nitrogen) 10 mg/dL (9.8-20.1); Bilirubin, Total 0.9 mg/dL (0.2-1.2); Calc. Creatinine Clearance 42 mL/min (70-130); Carbon Dioxide 23 mmol/L (23-31); Chloride 103 mmol/L (98-107); Estimated GFR 86; Globulin 3.6 g/dL (2.4-3.5); Glucose 63 mg/dL (83-110); Phosphorus 3.4 mg/dL (2.3-4.7); Potassium 4.2 mmol/L (3.5-5.1); Protein, Total 6.5 g/dL (5.8-8.1); Sodium 135 mmol/L (136-145)
[2022-06-30] MEDS: Mometasone 100 MCG/Formoterol 5 MCG 120 PUFF INHALER INH SCH ×2 (06:20→18:19)
[2022-06-30] MEDS: Budesonide 0.25 MG/2 ML NEB INH SCH ×2 (06:54→18:18)
[2022-06-30] MEDS: Digoxin 0.125 MG TAB PO SCH (08:05)
[2022-06-30] MEDS: Spironolactone 25 MG TAB PO SCH (08:05)
[2022-06-30] MEDS: Apixaban 2.5 MG TAB PO SCH ×2 (08:06→20:22)
[2022-06-30] MEDS: Ondansetron PF 4 MG/2 ML Vial IVP PRN ×2 (09:49→19:38)
[2022-06-30] MEDS: Acetaminophen 325 MG TAB PO PRN ×2 (09:54→20:22)
[2022-06-30] MEDS ORDERED: Furosemide 20 MG/2 ML VIAL SLOW IVP SCH (10:45)
[2022-06-30] MEDS ORDERED: Empagliflozin 10 MG TAB PO SCH ×2 (11:00)
[2022-06-30] MEDS ORDERED: Iron, Sodium Ferric Gluconate 250 MG in Sodium Chloride 0.9% 250 ML 250 ML IVPB SCH (12:00)
[2022-07-01 04:44] LABS: #Basophils 0.1 thou/uL (0.0-0.2); #Eosinphils 0.1 thou/uL (0.0-0.7); #Monocytes 0.7 thou/uL (0.11-0.59); #Neutrophils 5.6 thou/uL (1.40-6.50); %Basophils 1.1 % (0.0-1.0); %Eosinophils 1.3 % (0.0-10.0); %Lymphocytes 13.7 % (21.0-51.0); %Monocytes 8.8 % (0.0-10.0); %Neutrophils 75.1 % (42.0-75.0); Hemoglobin 11.6 g/dL (12.0-16.0); Mean Corpuscular HGB CONC 30.5 g/dL (32.0-36.0); Mean Corpuscular Hemoglobin 27.9 pg (27.0-31.0); Mean Corpuscular Volume 91.7 fl (78.0-98.0); Mean Platelet Volume 6.7 fL (7.4-10.4); Platelet Count 355 thou/uL (130-400); RBC Distribution Width 13.4 % (11.5-14.5); Red Blood Cell (RBC) Count 4.14 mill/uL (4.20-5.40); White Blood Cell (WBC) Count 7.5 thou/uL (4.8-10.8)
[2022-07-01 05:13] LABS: ALT (SGPT) 12 U/L (8-55); AST (SGOT) 17 U/L (5-34); Alkaline Phosphatase 49 U/L (40-110); Anion Gap 16 mmol/L (10-20); BUN (Urea Nitrogen) 15 mg/dL (9.8-20.1); Bilirubin, Total 0.6 mg/dL (0.2-1.2); Calc. Creatinine Clearance 36 mL/min (70-130); Calcium 9.1 mg/dL (7.8-10.44); Carbon Dioxide 26 mmol/L (23-31); Chloride 101 mmol/L (98-107); Estimated GFR 78; Globulin 3.4 g/dL (2.4-3.5); Glucose 62 mg/dL (83-110); Potassium 3.6 mmol/L (3.5-5.1); Protein, Total 6.4 g/dL (5.8-8.1); Sodium 139 mmol/L (136-145)
[2022-07-01] MEDS: Mometasone 100 MCG/Formoterol 5 MCG 120 PUFF INHALER INH SCH ×2 (06:55→18:59)
[2022-07-01] MEDS: Budesonide 0.25 MG/2 ML NEB INH SCH ×2 (06:55→18:43)
[2022-07-01] MEDS: Digoxin 0.125 MG TAB PO SCH (08:51)
[2022-07-01] MEDS: Apixaban 2.5 MG TAB PO SCH ×2 (08:51→21:20)
[2022-07-01] MEDS: Spironolactone 25 MG TAB PO SCH (08:51)
[2022-07-01] MEDS: Furosemide 20 MG/2 ML VIAL SLOW IVP SCH (08:52)
[2022-07-01] MEDS: Empagliflozin 10 MG TAB PO SCH (08:52)
[2022-07-02 04:47] LABS: #Eosinphils 0.2 thou/uL (0.0-0.7); #Monocytes 0.6 thou/uL (0.11-0.59); #Neutrophils 4.2 thou/uL (1.40-6.50); %Basophils 0.6 % (0.0-1.0); %Eosinophils 2.8 % (0.0-10.0); %Neutrophils 70.6 % (42.0-75.0); Hemoglobin 11.6 g/dL (12.0-16.0); Mean Corpuscular HGB CONC 30.2 g/dL (32.0-36.0); Mean Corpuscular Hemoglobin 27.6 pg (27.0-31.0); Mean Corpuscular Volume 91.4 fl (78.0-98.0); Mean Platelet Volume 6.6 fL (7.4-10.4); Platelet Count 352 thou/uL (130-400); RBC Distribution Width 13.3 % (11.5-14.5); Red Blood Cell (RBC) Count 4.19 mill/uL (4.20-5.40)
[2022-07-02 05:03] LABS: Anion Gap 15 mmol/L (10-20); BUN (Urea Nitrogen) 14 mg/dL (9.8-20.1); Calc. Creatinine Clearance 40 mL/min (70-130); Calcium 9.3 mg/dL (7.8-10.44); Carbon Dioxide 29 mmol/L (23-31); Chloride 100 mmol/L (98-107); Estimated GFR 86; Glucose 75 mg/dL (83-110); Potassium 3.7 mmol/L (3.5-5.1); Sodium 140 mmol/L (136-145)
[2022-07-02] MEDS: Spironolactone 25 MG TAB PO SCH (09:27)
[2022-07-02] MEDS: Apixaban 2.5 MG TAB PO SCH (09:27)
[2022-07-02] MEDS: Empagliflozin 10 MG TAB PO SCH (09:27)
[2022-07-02] MEDS: Digoxin 0.125 MG TAB PO SCH (09:28)
[2022-07-02] MEDS: Furosemide 20 MG/2 ML VIAL SLOW IVP SCH (09:28)
[2022-07-02] MEDS: Budesonide 0.25 MG/2 ML NEB INH SCH (12:21)
[2022-07-02] MEDS: Mometasone 100 MCG/Formoterol 5 MCG 120 PUFF INHALER INH SCH (12:22)
[2022-07-02 13:44] VITALS: BP 120/67; TEMP 97.5
[2022-07-03] MEDS ORDERED: Furosemide 40 MG TAB PO SCH (07:30)
[2022-07-03] MEDS ORDERED: Potassium Chloride 20 MEQ TAB PO SCH (08:00)
== END 2022-07-02 16:40 | disposition home health service (06) | DRG 291 ==
LOC: ERS 12:24 → ERHOLD 15:10 → IMCU/EMU 17:37 → 2NO 06-29 16:13
PROVIDERS: ADMIT Internal Medicine; ATTEND Internal Medicine
PROC: 5A2204Z Restoration of Cardiac Rhythm, Single (ICD-10-PCS; principal; 2022-06-29)
DX: I50.33 Acute on chronic diastolic (congestive) heart failure (principal); J96.01 Acute respiratory failure with hypoxia; I48.21 Permanent atrial fibrillation; Z20.822 Contact with and (suspected) exposure to COVID-19; J44.9 Chronic obstructive pulmonary disease, unspecified; R54 Age-related physical debility; D50.9 Iron deficiency anemia, unspecified; F41.9 Anxiety disorder, unspecified; F32.A Depression, unspecified; Z88.8 Allergy status to other drugs, medicaments and biological substances; Z79.01 Long term (current) use of anticoagulants; Z79.899 Other long term (current) drug therapy; Z79.02 Long term (current) use of antithrombotics/antiplatelets
CPT/HCPCS: 36415; 71045; 71275; 80048; 80053; 80162; 82728; 83735; 83880; 84100; 84145; 84484; 85025; 92960; 93005; 93306; 94640; 96365; 96366; 96375; 96376; J1160; J1940; J2405; J2704; J2916; J3490; J7050; J7620; J7626; Q9967; U0003; U0005